=== PATIENT | male | born 1950 | race Caucasian/White ===

== ENCOUNTER 2018-07-26 08:48 | Outpatient (CLI) | payer MEDICAID, SELFPAY ==
[2018-07-26 09:42] LABS: Abs Immature Grans 0.03 k/cumm (0.0-0.09); Absolute Basophil Count 0.08 k/cumm (0.0-0.2); Absolute Eosinophil Count 0.41 k/cumm (0.0-0.7); Absolute Lymphocyte Count 2.88 k/cumm (1.2-3.4); Absolute Monocyte Count 0.65 k/cumm (0.11-0.7); Absolute Neutrophil Count 6.34 k/cumm (1.2-6.7); Basophils % 0.8; Eosinophils % 3.9; HCT 41.7 % (40.0-50.0); HGB 14.6 g/dL (13.5-17.5); Immature Grans % 0.3; Lymphocytes % 27.7; Mean Corpuscular Hemoglobin 28.4 pg (27.0-33.0); Mean Corpuscular Volume 81.1 fL (80-95); Mean Platelet Volume 9.5 fL (8.0-11.0); Monocytes % 6.3; Platelet Count 376 x1000/uL (130-400); RBC 5.14 m/cumm (4.50-6.00); White Blood Cell Count 10.39 k/cumm (4.4-10.8)
[2018-07-26 10:11] LABS: ALT 17 U/L (12-78); AST 13 U/L (15-37); Alkaline Phosphatase 71 U/L (46-116); Anion Gap 4.3 mmol/L (3-11); BUN 22 mg/dL (7-18); Bilirubin, Total 0.3 mg/dL (0.2-1.0); CO2 30.7 mmol/L (21.0-32.0); CREATININE 0.98 mg/dL (0.70-1.30); Calcium 8.7 mg/dL (8.5-10.1); Chloride 108 mmol/L (98-107); Glucose 131 mg/dL (70-100); Potassium 4.4 mmol/L (3.5-5.1); Sodium 143 mmol/L (136-145); Total Protein 6.6 g/dL (6.4-8.2)
[2018-07-27 11:38] LABS: Hepatitis B Surface Ag Negative (NEGAT)
[2018-07-27 13:04] LABS: HCV RNA Detection Quantitative Undetected IU/mL (UNDECT)
== END 2018-07-26 08:49 ==
PROVIDERS: Clinical Nurse Specialist Psychiatric/Mental Health; Internal Medicine Gastroenterology; PCP Specialist/Technologist Athletic Trainer; Visit Provider Nurse Practitioner Psychiatric/Mental Health
DX: B18.2 Chronic viral hepatitis C (principal); Z20.5 Contact with and (suspected) exposure to viral hepatitis; Z79.899 Other long term (current) drug therapy
CPT/HCPCS: 36415; 80053; 87340; 85025; 87522

== ENCOUNTER 2018-08-23 08:49 | Outpatient (CLI) | payer MEDICAID, SELFPAY ==
[2018-08-23 09:21] LABS: Abs Immature Grans 0.03 k/cumm (0.0-0.09); Absolute Basophil Count 0.05 k/cumm (0.0-0.2); Absolute Eosinophil Count 0.41 k/cumm (0.0-0.7); Absolute Lymphocyte Count 2.66 k/cumm (1.2-3.4); Absolute Monocyte Count 0.81 k/cumm (0.11-0.7); Absolute Neutrophil Count 4.96 k/cumm (1.2-6.7); Basophils % 0.6; Eosinophils % 4.6; HCT 39.6 % (40.0-50.0); HGB 13.7 g/dL (13.5-17.5); Immature Grans % 0.3; Lymphocytes % 29.8; Mean Corp. HGB Concentration 34.6 g/dL (32.0-36.0); Mean Corpuscular Hemoglobin 27.8 pg (27.0-33.0); Mean Corpuscular Volume 80.5 fL (80-95); Monocytes % 9.1; Neutrophils % 55.6; Platelet Count 359 x1000/uL (130-400); RBC 4.92 m/cumm (4.50-6.00); RBC Distribution Width 13.6 % (11.8-14.1); White Blood Cell Count 8.92 k/cumm (4.4-10.8)
[2018-08-23 10:06] LABS: ALT 18 U/L (12-78); AST 20 U/L (15-37); Albumin 4.1 g/dL (3.4-5.0); Alkaline Phosphatase 78 U/L (46-116); Anion Gap 11.3 mmol/L (3-11); BUN 12 mg/dL (7-18); Bilirubin, Total 0.3 mg/dL (0.2-1.0); CO2 26.7 mmol/L (21.0-32.0); Calcium 8.8 mg/dL (8.5-10.1); Chloride 106 mmol/L (98-107); Glucose 84 mg/dL (70-100); Potassium 4.2 mmol/L (3.5-5.1); Sodium 144 mmol/L (136-145); Total Protein 6.8 g/dL (6.4-8.2)
[2018-08-24 12:28] LABS: Hepatitis B Surface Ag Negative (NEGAT)
[2018-08-24 14:02] LABS: HCV RNA Detection Quantitative Undetected IU/mL (UNDECT)
== END 2018-08-23 09:09 ==
PROVIDERS: Internal Medicine Gastroenterology; PCP Specialist/Technologist Athletic Trainer; Visit Provider Nurse Practitioner Psychiatric/Mental Health
DX: B18.2 Chronic viral hepatitis C (principal); Z20.5 Contact with and (suspected) exposure to viral hepatitis; Z79.899 Other long term (current) drug therapy
CPT/HCPCS: 36415; 80053; 87340; 85025; 87522

== ENCOUNTER 2018-08-23 12:19 | Emergency (ER) | payer MEDICAID, SELFPAY ==
[2018-08-23 12:31] VITALS: BP 150/84; PULSE 80; RESP 16; TEMP 36.5; O2SAT 99
[2018-08-23 13:07] LABS: Bilirubin Negative (Negative); Blood Negative (Negative); Clarity Clear; Glucose Negative (Negative); Ketones Negative (Negative); Leukocyte Esterase Negative (Negative); Nitrite Negative (Negative); Urobilinogen 0.2 EU/dL (Up TO 0.2)
[2018-08-23 13:38] LABS: *AMPHETAMINES SCREEN URINE Negative (Negative); *BARBITURATES SCREEN URINE Negative (Negative); *BENZODIAZEPINES SCREEN URINE Negative (Negative); Cannabinoids THC Negative (Negative); Cocaine Screen,Urine Negative (Negative); METHADONE URINE SCREEN Negative (Negative); OPIATES URINE SCREEN Negative (Negative)
[2018-08-23 13:46] LABS: Tricyclic Antidepressants Negative (Negative)
--- NOTE | 2018-08-23 14:04 | W.ED.GENAD ---
Discharge Plan Disposition Patient Disposition: OTHER Condition: Good Discharge Details Chief Complaint: PsychEval Clinical Impression: Adult general medical exam Primary Care Provider: [facility] ED Provider: [facility] Home Meds and New Rx's Prescriptions: Continue acetaminophen 325 MG tablet 650 mg PO Q6H PRN RF: 0 trazodone 50 MG tablet 50 mg PO HS RF: 0 clozapine 100 MG tablet 125 mg PO in am RF: 0 clozapine 100 MG tablet 300 mg PO HS Qty: 3 RF: 0 ranitidine HCl 150 MG tablet 150 mg PO DAILY RF: 0 lisinopril 5 MG tablet 5 mg PO DAILY RF: 0 albuterol sulfate [ProAir HFA] 8.5 GM HFA aerosol inhaler 1 puff Inhalation Q4H PRN RF: 0 aspirin [Aspirin Low-Strength] 81 MG tablet,chewable 81 mg PO DAILY RF: 0 Discharge Instructions Additional Instructions: Please feel free to return as needed for any symptoms Referrals: [facility] [Primary Care Provider] - (as needed) Discharge Data Discharge Date/Time-TO BE ENTERED AT DEPARTURE: 08/23/18 14:25 Medical Decision Making Patient presenting to the emergency department for chief complaint of medical clearance for care bed. Patient denies any medical complaints and states that the reason he is going to the care that is because there have been arguments and disagreements at his assisted and that he is going there for respite. Patient states that he has had some slight nasal congestion sore throat but otherwise has no other symptoms and states that he is not even concerned about his cold symptoms. Physical exam is unremarkable and given the patient is otherwise asymptomatic with no complaints I feel the patient is cleared to go to the patient and his employment case manager were informed they can return for any new or worsening symptoms otherwise to continue medication as prescribed. HPI General Mode of arrival: ambulatory. Date/Time Provider Initiated Documentation: 08/23/18 12:31. Limitations to Documentation: no limitations. Information obtained by: patient. History of Present Illness Patient notes no other symptoms.. HPI Narrative: Patient reports that he is here for care bed clearance and denies any medical complaints at this time. Patient denies any pain or discomfort. States that he is being sent to the care bed due to argumentsthat have been occurring in his assisted he lives in. He states that he is mainly going there for respite. Related Data Home Medications Medication Instructions Recorded Confirmed acetaminophen 650 mg PO Q6H PRN tab-cap 09/07/17 08/23/18 albuterol sulfate [ProAir HFA] 1 puff INHALATION Q4H PRN inhaler 09/07/17 08/23/18 clozapine 125 mg PO in am 09/07/17 08/23/18 clozapine 300 mg PO HS #3 09/07/17 08/23/18 lisinopril 5 mg PO DAILY tab-cap 09/07/17 08/23/18 ranitidine HCl 150 mg PO DAILY tab-cap 09/07/17 08/23/18 trazodone 50 mg PO HS tab-cap 09/07/17 08/23/18 aspirin [Aspirin Low-Strength] 81 mg PO DAILY 09/23/17 08/23/18 Allergies Allergy/AdvReac Type Severity Reaction Status Date / Time No Known Drug Allergies Allergy Unverified 08/23/18 12:39 General Stated Complaint: PsychEval MARY: 4 Review of Systems Constitutional Denies body ache(s), Denies chills and Denies fever(s) Cardiovascular Denies chest pain and Denies dyspnea Respiratory Denies dyspnea Gastrointestinal Denies abdominal pain, Denies nausea and Denies vomiting Integumentary/Breasts Denies rash Neurologic Denies confusion and Denies sensory deficit Psychiatric Reports as per HPI, Denies confusion, Denies homicidal ideation and Denies suicidal ideation [facility] Medical History Asthma COPD (chronic obstructive pulmonary disease) GERD (gastroesophageal reflux disease) HTN (hypertension) Hepatitis C Paranoid schizophrenia Social History Smoking/Tobacco Use Status: Current every day Surgical History Colonoscopy - MAC (09/27/17) Colonoscopy - MAC (12/28/17) Exam Const General: cooperative, no acute distress and not ill appearing Orientation: alert, awake and oriented x3 HENMT Mouth: moist mucous membranes Neck Neck: normal visual inspection, full ROM, no lymphadenopathy and no meningeal signs Thyroid: thyroid normal Resp Effort & Inspection: normal respiratory effort, able to speak in complete sentences and no respiratory distress Auscultation: clear to auscultation bilaterally Cardio Rate: regular rate Rhythm: regular rhythm Heart Sounds: S1 normal and S2 normal Skin General skin exam: no rashes or lesions noted Neuro General: alert, awake, oriented x3, moves all extremities and no focal motor deficits Sensory Exam: no sensory deficits noted Course Vital Signs Temperature 36.5 C 08/23/18 12:31 Pulse 80 08/23/18 12:31 Respiratory Rate 16 08/23/18 12:31 Blood Pressure 150/84 H 08/23/18 12:31 Pulse Oximetry 99 08/23/18 12:31 Temperature 36.5 C 08/23/18 12:31 Temperature Source Temporal Artery Scan 08/23/18 12:31 Pulse 80 08/23/18 12:31 Respiratory Rate 16 08/23/18 12:31 Respiratory Effort 08/23/18 12:37 Blood Pressure 150/84 H 08/23/18 12:31 Pulse Oximetry 99 08/23/18 12:31 Oxygen Delivery Method Room Air 08/23/18 12:31 Oxygen Flow Rate 0 08/23/18 12:31 Pain Level 0 08/23/18 12:31 Lab/Test Results Lab/Test Results: Laboratory Tests Range/Units 08/23/18 08/23/18 13:00 13:00 Urine Color (Yellow) Yellow Urine Clarity Clear Urine pH (5-8) 6.0 Ur Specific [place] (1.005-1.025) 1.010 Urine Protein (Negative) mg/dL Negative Urine Ketones (Negative) mg/dL Negative Urine Blood (Negative) Negative Urine Nitrite (Negative) Negative Urine Bilirubin (Negative) Negative Urine Urobilinogen (Up TO 0.2) EU/dL 0.2 Ur Leukocyte Esterase (Negative) Negative Urine Glucose (Negative) mg/dL Negative Urine Opiates Screen (Negative) Negative Urine Methadone Screen (Negative) Negative Ur Barbiturates Screen (Negative) Negative Ur Tricyclics Screen (Negative) Negative Ur Amphetamines Screen (Negative) Negative U Benzodiazepines Scrn (Negative) Negative Urine Cocaine Screen (Negative) Negative Ur THC Screen (Negative) Negative
--- NOTE | 2018-08-23 14:07 | ED.GENADUL_ITS ---
Discharge Plan Disposition Patient Disposition: OTHER Condition: Good Discharge Details Chief Complaint: PsychEval Clinical Impression: Adult general medical exam Primary Care Provider: [facility] ED Provider: [facility] Home Meds and New Rx's Prescriptions: Continue acetaminophen 325 MG tablet 650 mg PO Q6H PRN RF: 0 trazodone 50 MG tablet 50 mg PO HS RF: 0 clozapine 100 MG tablet 125 mg PO in am RF: 0 clozapine 100 MG tablet 300 mg PO HS Qty: 3 RF: 0 ranitidine HCl 150 MG tablet 150 mg PO DAILY RF: 0 lisinopril 5 MG tablet 5 mg PO DAILY RF: 0 albuterol sulfate [ProAir HFA] 8.5 GM HFA aerosol inhaler 1 puff Inhalation Q4H PRN RF: 0 aspirin [Aspirin Low-Strength] 81 MG tablet,chewable 81 mg PO DAILY RF: 0 Discharge Instructions Additional Instructions: Please feel free to return as needed for any symptoms Referrals: [facility] [Primary Care Provider] - (as needed) Discharge Data Discharge Date/Time-TO BE ENTERED AT DEPARTURE: 08/23/18 14:25 Medical Decision Making Patient presenting to the emergency department for chief complaint of medical clearance for care bed. Patient denies any medical complaints and states that the reason he is going to the care that is because there have been arguments and disagreements at his retirement and that he is going there for respite. Patient states that he has had some slight nasal congestion sore throat but otherwise has no other symptoms and states that he is not even concerned about his cold symptoms. Physical exam is unremarkable and given the patient is otherwise asymptomatic with no complaints I feel the patient is cleared to go to the patient and his catalytic case operator were informed they can return for any new or worsening symptoms otherwise to continue medication as prescribed. HPI General Mode of arrival: ambulatory . Date/Time Provider Initiated Documentation: 08/23/18 12:31 . Limitations to Documentation: no limitations . Information obtained by: patient . History of Present Illness Patient notes no other symptoms.. HPI Narrative: Patient reports that he is here for care bed clearance and denies any medical complaints at this time. Patient denies any pain or discomfort. States that he is being sent to the care bed due to argumentsthat have been occurring in his retirement he lives in. He states that he is mainly going there for respite. Related Data Home Medications Medication Instructions Recorded Confirmed acetaminophen 650 mg PO Q6H PRN tab-cap 09/07/17 08/23/18 albuterol sulfate [ProAir HFA] 1 puff INHALATION Q4H PRN inhaler 09/07/1708/23 clozapine 125 mg PO in am 09/07/17 08/23/18 clozapine 300 mg PO HS #3 09/07/17 08/23/18 lisinopril 5 mg PO DAILY tab-cap 09/07/17 08/23/18 ranitidine HCl 150 mg PO DAILY tab-cap 09/07/17 08/23/18 trazodone 50 mg PO HS tab-cap 09/07/17 08/23/18 aspirin [Aspirin Low-Strength] 81 mg PO DAILY 09/23/17 08/23/18 Allergies Allergy/AdvReac Type Severity Reaction Status Date / Time No Known Drug Allergies Allergy Unverified 08/23/18 12:39 General Stated Complaint: PsychEval MARY: 4 Review of Systems Constitutional Denies body ache(s), Denies chills and Denies fever(s) Cardiovascular Denies chest pain and Denies dyspnea Respiratory Denies dyspnea Gastrointestinal Denies abdominal pain, Denies nausea and Denies vomiting Integumentary/Breasts Denies rash Neurologic Denies confusion and Denies sensory deficit Psychiatric Reports as per HPI, Denies confusion, Denies homicidal ideation and Denies suicidal ideation [facility] Medical History Asthma COPD (chronic obstructive pulmonary disease) GERD (gastroesophageal reflux disease) HTN (hypertension) Hepatitis C Paranoid schizophrenia Social History Smoking/Tobacco Use Status: Current every day Surgical History Colonoscopy - MAC (09/27/17) Colonoscopy - MAC (12/28/17) Exam Const General: cooperative, no acute distress and not ill appearing Orientation: alert, awake and oriented x3 HENMT Mouth: moist mucous membranes Neck Neck: normal visual inspection, full ROM, no lymphadenopathy and no meningeal signs Thyroid: thyroid normal Resp Effort & Inspection: normal respiratory effort, able to speak in complete sentences and no respiratory distress Auscultation: clear to auscultation bilaterally Cardio Rate: regular rate Rhythm: regular rhythm Heart Sounds: S1 normal and S2 normal Skin General skin exam: no rashes or lesions noted Neuro General: alert, awake, oriented x3, moves all extremities and no focal motor deficits Sensory Exam: no sensory deficits noted Course Vital Signs Temperature 36.5 C 08/23/18 12:31 Pulse 80 08/23/18 12:31 Respiratory Rate 16 08/23/18 12:31 Blood Pressure 150/84 H 08/23/18 12:31 Pulse Oximetry 99 08/23/18 12:31 Temperature 36.5 C 08/23/18 12:31 Temperature Source Temporal Artery Scan 08/23/18 12:31 Pulse 80 08/23/18 12:31 Respiratory Rate 16 08/23/18 12:31 Respiratory Effort 08/23/18 12:37 Blood Pressure 150/84 H 08/23/18 12:31 Pulse Oximetry 99 08/23/18 12:31 Oxygen Delivery Method Room Air 08/23/18 12:31 Oxygen Flow Rate 0 08/23/18 12:31 Pain Level 0 08/23/18 12:31 Lab/Test Results Lab/Test Results: Laboratory Tests Range/Units 08/23/18 08/23/18 13:00 13:00 Urine Color (Yellow) Yellow Urine Clarity Clear Urine pH (5-8) 6.0 Ur Specific [place] (1.005-1.025) 1.010 Urine Protein (Negative) mg/dL Negative Urine Ketones (Negative) mg/dL Negative Urine Blood (Negative) Negative Urine Nitrite (Negative) Negative Urine Bilirubin (Negative) Negative Urine Urobilinogen (Up TO 0.2) EU/dL 0.2 Ur Leukocyte Esterase (Negative) Negative Urine Glucose (Negative) mg/dL Negative Urine Opiates Screen (Negative) Negative Urine Methadone Screen (Negative) Negative Ur Barbiturates Screen (Negative) Negative Ur Tricyclics Screen (Negative) Negative Ur Amphetamines Screen (Negative) Negative U Benzodiazepines Scrn (Negative) Negative Urine Cocaine Screen (Negative) Negative Ur THC Screen (Negative) Negative
== END 2018-08-23 14:25 | disposition other institution (70) ==
PROVIDERS: Emergency Provider Nurse Practitioner Family; PCP Specialist/Technologist Athletic Trainer
DX: F20.0 Paranoid schizophrenia (principal); Z71.1 Person with feared health complaint in whom no diagnosis is made; I10 Essential (primary) hypertension; J44.9 Chronic obstructive pulmonary disease, unspecified; F17.210 Nicotine dependence, cigarettes, uncomplicated
CPT/HCPCS: 80307; 99282; 81003

== ENCOUNTER 2018-09-20 08:45 | Outpatient (CLI) | payer MEDICAID, SELFPAY ==
[2018-09-20 09:30] LABS: Abs Immature Grans 0.06 k/cumm (0.0-0.09); Absolute Lymphocyte Count 1.92 k/cumm (1.2-3.4); Basophils % 0.2; Eosinophils % 0.8; HCT 41.1 % (40.0-50.0); HGB 14.2 g/dL (13.5-17.5); Immature Grans % 0.3; Lymphocytes % 8.7; Mean Corp. HGB Concentration 34.5 g/dL (32.0-36.0); Mean Corpuscular Hemoglobin 27.6 pg (27.0-33.0); Mean Platelet Volume 9.1 fL (8.0-11.0); Monocytes % 6.6; Neutrophils % 83.4; Platelet Count 443 x1000/uL (130-400); RBC 5.14 m/cumm (4.50-6.00); RBC Distribution Width 13.8 % (11.8-14.1); White Blood Cell Count 22.09 k/cumm (4.4-10.8)
[2018-09-20 09:34] LABS: Absolute Basophil Count 0.04 k/cumm (0.0-0.2); Absolute Eosinophil Count 0.18 k/cumm (0.0-0.7); Absolute Monocyte Count 1.46 k/cumm (0.11-0.7); Absolute Neutrophil Count 18.42 k/cumm (1.2-6.7)
[2018-09-20 10:30] LABS: ALT 15 U/L (12-78); AST 16 U/L (15-37); Albumin 3.9 g/dL (3.4-5.0); Alkaline Phosphatase 79 U/L (46-116); Anion Gap 7.8 mmol/L (3-11); BUN 23 mg/dL (7-18); Bilirubin, Total 0.3 mg/dL (0.2-1.0); CO2 29.2 mmol/L (21.0-32.0); CREATININE 0.96 mg/dL (0.70-1.30); Calcium 9.1 mg/dL (8.5-10.1); Chloride 103 mmol/L (98-107); Glucose 128 mg/dL (70-100); Potassium 4.6 mmol/L (3.5-5.1); Sodium 140 mmol/L (136-145)
[2018-09-21 12:37] LABS: Hepatitis B Surface Ag Negative (NEGAT)
[2018-09-21 14:53] LABS: HCV RNA Detection Quantitative Undetected IU/mL (UNDECT)
== END 2018-09-20 09:05 ==
PROVIDERS: Physician Assistant Medical; PCP Specialist/Technologist Athletic Trainer; Visit Provider Nurse Practitioner Psychiatric/Mental Health
DX: F20.0 Paranoid schizophrenia (principal); Z79.899 Other long term (current) drug therapy; B18.2 Chronic viral hepatitis C; Z20.5 Contact with and (suspected) exposure to viral hepatitis
CPT/HCPCS: 36415; 80053; 87340; 85025; 87522

== ENCOUNTER 2018-10-05 09:03 | Outpatient (CLI) | payer MEDICAID, SELFPAY ==
[2018-10-05 09:37] LABS: Abs Immature Grans 0.04 k/cumm (0.0-0.09); Absolute Basophil Count 0.06 k/cumm (0.0-0.2); Absolute Lymphocyte Count 2.94 k/cumm (1.2-3.4); Absolute Monocyte Count 1.08 k/cumm (0.11-0.7); Absolute Neutrophil Count 5.83 k/cumm (1.2-6.7); Basophils % 0.6; Eosinophils % 3.9; HCT 37.3 % (40.0-50.0); HGB 12.9 g/dL (13.5-17.5); Immature Grans % 0.4; Lymphocytes % 28.4; Mean Corp. HGB Concentration 34.6 g/dL (32.0-36.0); Mean Corpuscular Hemoglobin 27.5 pg (27.0-33.0); Mean Corpuscular Volume 79.5 fL (80-95); Mean Platelet Volume 8.7 fL (8.0-11.0); Monocytes % 10.4; Neutrophils % 56.3; Platelet Count 409 x1000/uL (130-400); RBC 4.69 m/cumm (4.50-6.00); RBC Distribution Width 13.8 % (11.8-14.1); White Blood Cell Count 10.35 k/cumm (4.4-10.8)
== END 2018-10-05 09:23 ==
PROVIDERS: PCP Specialist/Technologist Athletic Trainer; Visit Provider Nurse Practitioner Psychiatric/Mental Health
DX: Z79.899 Other long term (current) drug therapy (principal)
CPT/HCPCS: 36415; 85025

== ENCOUNTER 2018-11-02 08:49 | Outpatient (CLI) | payer MEDICAID, SELFPAY ==
[2018-11-02 09:33] LABS: Abs Immature Grans 0.03 k/cumm (0.0-0.09); Absolute Basophil Count 0.07 k/cumm (0.0-0.2); Absolute Eosinophil Count 0.43 k/cumm (0.0-0.7); Absolute Lymphocyte Count 2.87 k/cumm (1.2-3.4); Absolute Monocyte Count 0.64 k/cumm (0.11-0.7); Absolute Neutrophil Count 7.47 k/cumm (1.2-6.7); Basophils % 0.6; Eosinophils % 3.7; HCT 41.6 % (40.0-50.0); HGB 14.2 g/dL (13.5-17.5); Immature Grans % 0.3; Lymphocytes % 24.9; Mean Corp. HGB Concentration 34.1 g/dL (32.0-36.0); Mean Corpuscular Hemoglobin 27.4 pg (27.0-33.0); Mean Corpuscular Volume 80.2 fL (80-95); Mean Platelet Volume 9.6 fL (8.0-11.0); Monocytes % 5.6; Neutrophils % 64.9; Platelet Count 385 x1000/uL (130-400); RBC 5.19 m/cumm (4.50-6.00); RBC Distribution Width 14.2 % (11.8-14.1); White Blood Cell Count 11.51 k/cumm (4.4-10.8)
== END 2018-11-02 09:09 ==
PROVIDERS: PCP Specialist/Technologist Athletic Trainer; Visit Provider Nurse Practitioner Psychiatric/Mental Health
DX: Z79.899 Other long term (current) drug therapy (principal); F20.0 Paranoid schizophrenia
CPT/HCPCS: 36415; 85025

== ENCOUNTER 2018-11-30 09:20 | Outpatient (CLI) | payer MEDICAID, SELFPAY ==
[2018-11-30 10:14] LABS: Abs Immature Grans 0.04 k/cumm (0.0-0.09); Absolute Basophil Count 0.05 k/cumm (0.0-0.2); Absolute Eosinophil Count 0.29 k/cumm (0.0-0.7); Absolute Lymphocyte Count 2.71 k/cumm (1.2-3.4); Absolute Neutrophil Count 8.37 k/cumm (1.2-6.7); Basophils % 0.4; Eosinophils % 2.3; HCT 37.9 % (40.0-50.0); HGB 13.1 g/dL (13.5-17.5); Immature Grans % 0.3; Lymphocytes % 21.8; Mean Corp. HGB Concentration 34.6 g/dL (32.0-36.0); Mean Corpuscular Hemoglobin 27.6 pg (27.0-33.0); Mean Corpuscular Volume 79.8 fL (80-95); Mean Platelet Volume 8.7 fL (8.0-11.0); Neutrophils % 67.2; Platelet Count 509 x1000/uL (130-400); RBC 4.75 m/cumm (4.50-6.00); RBC Distribution Width 14.1 % (11.8-14.1); White Blood Cell Count 12.45 k/cumm (4.4-10.8)
[2018-11-30 11:49] LABS: ALT 17 U/L (12-78); AST 15 U/L (15-37); Alkaline Phosphatase 77 U/L (46-116); Anion Gap 9.2 mmol/L (3-11); BUN 21 mg/dL (7-18); Bilirubin, Total 0.3 mg/dL (0.2-1.0); CO2 27.8 mmol/L (21.0-32.0); CREATININE 0.96 mg/dL (0.70-1.30); Calcium 9.4 mg/dL (8.5-10.1); Chloride 105 mmol/L (98-107); Glucose 114 mg/dL (70-100); Potassium 4.5 mmol/L (3.5-5.1); Sodium 142 mmol/L (136-145)
[2018-12-01 12:35] LABS: Hepatitis B Surface Ag Negative (NEGAT)
[2018-12-01 13:43] LABS: HCV RNA Detection Quantitative Undetected IU/mL (UNDECT)
== END 2018-11-30 09:40 ==
PROVIDERS: Physician Assistant Medical; PCP Specialist/Technologist Athletic Trainer; Visit Provider Nurse Practitioner Psychiatric/Mental Health
DX: B18.2 Chronic viral hepatitis C (principal); Z20.5 Contact with and (suspected) exposure to viral hepatitis; F20.9 Schizophrenia, unspecified; Z79.899 Other long term (current) drug therapy
CPT/HCPCS: 36415; 80053; 87340; 85025; 87522

== ENCOUNTER 2019-01-04 10:01 | Outpatient (CLI) | payer MEDICAID, SELFPAY ==
[2019-01-04 10:28] LABS: Abs Immature Grans 0.04 k/cumm (0.0-0.09); Absolute Basophil Count 0.04 k/cumm (0.0-0.2); Absolute Eosinophil Count 0.28 k/cumm (0.0-0.7); Absolute Lymphocyte Count 2.66 k/cumm (1.2-3.4); Absolute Monocyte Count 0.92 k/cumm (0.11-0.7); Absolute Neutrophil Count 9.27 k/cumm (1.2-6.7); Basophils % 0.3; Eosinophils % 2.1; HCT 38.5 % (40.0-50.0); HGB 13.1 g/dL (13.5-17.5); Immature Grans % 0.3; Lymphocytes % 20.1; Mean Corpuscular Hemoglobin 26.8 pg (27.0-33.0); Mean Corpuscular Volume 78.7 fL (80-95); Neutrophils % 70.2; Platelet Count 436 x1000/uL (130-400); RBC 4.89 m/cumm (4.50-6.00); RBC Distribution Width 14.1 % (11.8-14.1); White Blood Cell Count 13.21 k/cumm (4.4-10.8)
== END 2019-01-04 10:21 ==
PROVIDERS: PCP Specialist/Technologist Athletic Trainer; Visit Provider Nurse Practitioner Psychiatric/Mental Health
DX: F20.9 Schizophrenia, unspecified (principal); Z79.899 Other long term (current) drug therapy
CPT/HCPCS: 36415; 85025

== ENCOUNTER 2019-02-01 09:48 | Outpatient (CLI) | payer MEDICAID, SELFPAY ==
[2019-02-01 10:25] LABS: Abs Immature Grans 0.02 k/cumm (0.0-0.09); Absolute Basophil Count 0.06 k/cumm (0.0-0.2); Absolute Eosinophil Count 0.47 k/cumm (0.0-0.7); Absolute Lymphocyte Count 2.52 k/cumm (1.2-3.4); Absolute Monocyte Count 0.81 k/cumm (0.11-0.7); Absolute Neutrophil Count 6.78 k/cumm (1.2-6.7); Basophils % 0.6; Eosinophils % 4.4; HCT 37.1 % (40.0-50.0); Immature Grans % 0.2; Lymphocytes % 23.6; Mean Corpuscular Hemoglobin 27.5 pg (27.0-33.0); Mean Corpuscular Volume 78.6 fL (80-95); Mean Platelet Volume 9.2 fL (8.0-11.0); Monocytes % 7.6; Neutrophils % 63.6; Platelet Count 363 x1000/uL (130-400); RBC 4.72 m/cumm (4.50-6.00); White Blood Cell Count 10.66 k/cumm (4.4-10.8)
[2019-02-01 11:15] LABS: ALT 14 U/L (12-78); AST 14 U/L (15-37); Albumin 3.9 g/dL (3.4-5.0); Alkaline Phosphatase 81 U/L (46-116); Anion Gap 8.3 mmol/L (3-11); BUN 22 mg/dL (7-18); Bilirubin, Total 0.3 mg/dL (0.2-1.0); CO2 32.7 mmol/L (21.0-32.0); CREATININE 0.94 mg/dL (0.70-1.30); Chloride 104 mmol/L (98-107); Glucose 108 mg/dL (70-100); Potassium 4.2 mmol/L (3.5-5.1); Sodium 145 mmol/L (136-145); Total Protein 6.5 g/dL (6.4-8.2)
[2019-02-02 12:40] LABS: Hepatitis B Surface Ag Negative (NEGAT)
[2019-02-02 14:48] LABS: HCV RNA Detection Quantitative Undetected IU/mL (UNDECT)
[2019-02-03 09:10] LABS: Clozapine 557 ng/mL (>350); Clozapine+Norclozapine Total 1058 ng/mL (>450); Norclozapine 501 ng/mL
== END 2019-02-01 10:08 ==
PROVIDERS: PCP Specialist/Technologist Athletic Trainer; Visit Provider Nurse Practitioner Psychiatric/Mental Health
DX: F20.9 Schizophrenia, unspecified (principal); Z51.81 Encounter for therapeutic drug level monitoring; Z79.899 Other long term (current) drug therapy; B18.2 Chronic viral hepatitis C
CPT/HCPCS: 36415; 80053; 87340; 80159; 85025; 87522

== ENCOUNTER 2019-03-01 08:53 | Outpatient (CLI) | payer MEDICAID, SELFPAY ==
[2019-03-01 09:24] LABS: Abs Immature Grans 0.03 k/cumm (0.0-0.09); Absolute Basophil Count 0.04 k/cumm (0.0-0.2); Absolute Eosinophil Count 0.27 k/cumm (0.0-0.7); Absolute Lymphocyte Count 3.79 k/cumm (1.2-3.4); Absolute Monocyte Count 0.77 k/cumm (0.11-0.7); Absolute Neutrophil Count 7.58 k/cumm (1.2-6.7); Basophils % 0.3; Eosinophils % 2.2; HCT 41.8 % (40.0-50.0); HGB 14.5 g/dL (13.5-17.5); Immature Grans % 0.2; Lymphocytes % 30.4; Mean Corp. HGB Concentration 34.7 g/dL (32.0-36.0); Mean Corpuscular Hemoglobin 27.4 pg (27.0-33.0); Mean Platelet Volume 8.8 fL (8.0-11.0); Monocytes % 6.2; Neutrophils % 60.7; Platelet Count 449 x1000/uL (130-400); RBC 5.29 m/cumm (4.50-6.00); RBC Distribution Width 14.2 % (11.8-14.1); White Blood Cell Count 12.48 k/cumm (4.4-10.8)
[2019-03-01 10:23] LABS: ALT 16 U/L (12-78); AST 13 U/L (15-37); Albumin 3.9 g/dL (3.4-5.0); Alkaline Phosphatase 80 U/L (46-116); Anion Gap 9.1 mmol/L (3-11); BUN 23 mg/dL (7-18); Bilirubin, Total 0.3 mg/dL (0.2-1.0); CO2 30.9 mmol/L (21.0-32.0); CREATININE 1.02 mg/dL (0.70-1.30); Calcium 9.3 mg/dL (8.5-10.1); Chloride 104 mmol/L (98-107); Glucose 136 mg/dL (70-100); Potassium 4.3 mmol/L (3.5-5.1); Sodium 144 mmol/L (136-145); Total Protein 6.8 g/dL (6.4-8.2)
[2019-03-02 10:46] LABS: Hepatitis B Surface Ag Negative (NEGAT)
[2019-03-02 16:29] LABS: HCV RNA Detection Quantitative Undetected IU/mL (UNDECT)
[2019-03-04 00:18] LABS: Clozapine 290 ng/mL (>350); Clozapine+Norclozapine Total 575 ng/mL (>450); Norclozapine 285 ng/mL
== END 2019-03-01 09:13 ==
PROVIDERS: PCP Specialist/Technologist Athletic Trainer; Visit Provider Nurse Practitioner Psychiatric/Mental Health
DX: Z79.899 Other long term (current) drug therapy (principal); B18.2 Chronic viral hepatitis C; F20.9 Schizophrenia, unspecified; Z51.81 Encounter for therapeutic drug level monitoring
CPT/HCPCS: 36415; 80053; 87340; 80159; 85025; 87522

== ENCOUNTER 2019-03-29 08:58 | Outpatient (CLI) | payer MEDICAID, SELFPAY ==
[2019-03-29 09:28] LABS: Abs Immature Grans 0.04 k/cumm (0.0-0.09); Absolute Eosinophil Count 0.28 k/cumm (0.0-0.7); Absolute Monocyte Count 0.66 k/cumm (0.11-0.7); Absolute Neutrophil Count 10.35 k/cumm (1.2-6.7); Basophils % 0.4; Eosinophils % 2.1; HCT 37.7 % (40.0-50.0); HGB 13.3 g/dL (13.5-17.5); Immature Grans % 0.3; Lymphocytes % 15.9; Mean Corp. HGB Concentration 35.3 g/dL (32.0-36.0); Mean Corpuscular Hemoglobin 27.7 pg (27.0-33.0); Mean Corpuscular Volume 78.4 fL (80-95); Mean Platelet Volume 8.9 fL (8.0-11.0); Monocytes % 4.9; Neutrophils % 76.4; Platelet Count 475 x1000/uL (130-400); RBC 4.81 m/cumm (4.50-6.00); RBC Distribution Width 13.8 % (11.8-14.1); White Blood Cell Count 13.55 k/cumm (4.4-10.8)
[2019-03-29 09:30] LABS: Absolute Basophil Count 0.05 k/cumm (0.0-0.2); Absolute Lymphocyte Count 2.15 k/cumm (1.2-3.4)
== END 2019-03-29 09:18 ==
PROVIDERS: PCP Specialist/Technologist Athletic Trainer; Visit Provider Nurse Practitioner Psychiatric/Mental Health
DX: Z79.899 Other long term (current) drug therapy (principal); F20.9 Schizophrenia, unspecified
CPT/HCPCS: 36415; 85025

== ENCOUNTER 2019-04-26 08:48 | Outpatient (CLI) | payer MEDICAID, SELFPAY ==
[2019-04-26 09:26] LABS: Abs Immature Grans 0.02 k/cumm (0.0-0.09); Absolute Basophil Count 0.04 k/cumm (0.0-0.2); Absolute Eosinophil Count 0.27 k/cumm (0.0-0.7); Absolute Lymphocyte Count 2.28 k/cumm (1.2-3.4); Absolute Monocyte Count 0.38 k/cumm (0.11-0.7); Absolute Neutrophil Count 5.76 k/cumm (1.2-6.7); Basophils % 0.5; Eosinophils % 3.1; HCT 40.6 % (40.0-50.0); HGB 13.9 g/dL (13.5-17.5); Immature Grans % 0.2; Lymphocytes % 26.1; Mean Corp. HGB Concentration 34.2 g/dL (32.0-36.0); Mean Corpuscular Hemoglobin 27.1 pg (27.0-33.0); Mean Corpuscular Volume 79.3 fL (80-95); Mean Platelet Volume 9.5 fL (8.0-11.0); Monocytes % 4.3; Neutrophils % 65.8; Platelet Count 387 x1000/uL (130-400); RBC 5.12 m/cumm (4.50-6.00); RBC Distribution Width 14.7 % (11.8-14.1); White Blood Cell Count 8.75 k/cumm (4.4-10.8)
== END 2019-04-26 09:08 ==
PROVIDERS: PCP Specialist/Technologist Athletic Trainer; Visit Provider Nurse Practitioner Psychiatric/Mental Health
DX: F20.9 Schizophrenia, unspecified (principal); Z79.899 Other long term (current) drug therapy
CPT/HCPCS: 36415; 85025

== ENCOUNTER 2019-05-24 08:45 | Outpatient (CLI) | payer MEDICAID, SELFPAY ==
[2019-05-24 10:20] LABS: Abs Immature Grans 0.03 k/cumm (0.0-0.09); Absolute Lymphocyte Count 2.24 k/cumm (1.2-3.4); Absolute Monocyte Count 0.75 k/cumm (0.11-0.7); Absolute Neutrophil Count 7.49 k/cumm (1.2-6.7); Basophils % 0.6; Eosinophils % 2.8; HCT 38.4 % (40.0-50.0); HGB 13.2 g/dL (13.5-17.5); Immature Grans % 0.3; Lymphocytes % 20.6; Mean Corp. HGB Concentration 34.4 g/dL (32.0-36.0); Mean Corpuscular Volume 78.7 fL (80-95); Mean Platelet Volume 9.1 fL (8.0-11.0); Monocytes % 6.9; Neutrophils % 68.8; Platelet Count 447 x1000/uL (130-400); RBC 4.88 m/cumm (4.50-6.00); RBC Distribution Width 14.3 % (11.8-14.1); White Blood Cell Count 10.88 k/cumm (4.4-10.8)
[2019-05-24 10:26] LABS: Absolute Basophil Count 0.07 k/cumm (0.0-0.2)
== END 2019-05-24 09:05 ==
PROVIDERS: PCP Specialist/Technologist Athletic Trainer; Visit Provider Nurse Practitioner Family
DX: Z79.899 Other long term (current) drug therapy (principal)
CPT/HCPCS: 36415; 85025

== ENCOUNTER 2019-06-21 09:26 | Outpatient (CLI) | payer MEDICAID, SELFPAY ==
[2019-06-21 10:13] LABS: Abs Immature Grans 0.02 k/cumm (0.0-0.09); Absolute Basophil Count 0.03 k/cumm (0.0-0.2); Absolute Eosinophil Count 0.23 k/cumm (0.0-0.7); Absolute Lymphocyte Count 2.93 k/cumm (1.2-3.4); Absolute Monocyte Count 0.67 k/cumm (0.11-0.7); Absolute Neutrophil Count 7.42 k/cumm (1.2-6.7); Basophils % 0.3; HGB 14.3 g/dL (13.5-17.5); Immature Grans % 0.2; Lymphocytes % 25.9; Mean Corp. HGB Concentration 34.9 g/dL (32.0-36.0); Mean Corpuscular Hemoglobin 27.4 pg (27.0-33.0); Mean Corpuscular Volume 78.7 fL (80-95); Monocytes % 5.9; Neutrophils % 65.7; Platelet Count 359 x1000/uL (130-400); RBC 5.21 m/cumm (4.50-6.00); RBC Distribution Width 14.6 % (11.8-14.1)
== END 2019-06-21 09:46 ==
PROVIDERS: PCP Specialist/Technologist Athletic Trainer; Visit Provider Nurse Practitioner Family
DX: F20.0 Paranoid schizophrenia (principal); Z79.899 Other long term (current) drug therapy
CPT/HCPCS: 36415; 85025

== ENCOUNTER 2019-07-19 08:58 | Outpatient (CLI) | payer MEDICAID, SELFPAY ==
[2019-07-19 09:17] LABS: Abs Immature Grans 0.05 k/cumm (0.0-0.09); Absolute Basophil Count 0.04 k/cumm (0.0-0.2); Absolute Eosinophil Count 0.26 k/cumm (0.0-0.7); Absolute Lymphocyte Count 2.85 k/cumm (1.2-3.4); Absolute Monocyte Count 0.67 k/cumm (0.11-0.7); Basophils % 0.4; Eosinophils % 2.6; HCT 37.7 % (40.0-50.0); HGB 12.9 g/dL (13.5-17.5); Immature Grans % 0.5; Lymphocytes % 28.9; Mean Corp. HGB Concentration 34.2 g/dL (32.0-36.0); Mean Platelet Volume 8.4 fL (8.0-11.0); Monocytes % 6.8; Neutrophils % 60.8; Platelet Count 495 x1000/uL (130-400); RBC 4.77 m/cumm (4.50-6.00); RBC Distribution Width 14.3 % (11.8-14.1); White Blood Cell Count 9.87 k/cumm (4.4-10.8)
== END 2019-07-19 09:18 ==
PROVIDERS: PCP Specialist/Technologist Athletic Trainer; Visit Provider Nurse Practitioner Family
DX: F20.0 Paranoid schizophrenia (principal); Z79.899 Other long term (current) drug therapy
CPT/HCPCS: 36415; 85025

== ENCOUNTER 2019-08-17 10:28 | Outpatient (CLI) | payer MEDICAID, SELFPAY ==
[2019-08-17 10:56] LABS: Abs Immature Grans 0.02 k/cumm (0.0-0.09); Absolute Basophil Count 0.07 k/cumm (0.0-0.2); Absolute Eosinophil Count 0.53 k/cumm (0.0-0.7); Absolute Lymphocyte Count 3.04 k/cumm (1.2-3.4); Absolute Monocyte Count 0.92 k/cumm (0.11-0.7); Absolute Neutrophil Count 6.92 k/cumm (1.2-6.7); Basophils % 0.6; Eosinophils % 4.6; HCT 39.2 % (40.0-50.0); HGB 13.6 g/dL (13.5-17.5); Immature Grans % 0.2; Lymphocytes % 26.4; Mean Corp. HGB Concentration 34.7 g/dL (32.0-36.0); Mean Corpuscular Hemoglobin 27.3 pg (27.0-33.0); Mean Corpuscular Volume 78.6 fL (80-95); Mean Platelet Volume 9.1 fL (8.0-11.0); Neutrophils % 60.2; Platelet Count 372 x1000/uL (130-400); RBC 4.99 m/cumm (4.50-6.00); RBC Distribution Width 14.4 % (11.8-14.1)
== END 2019-08-17 10:48 ==
PROVIDERS: Nurse Practitioner Family; PCP Specialist/Technologist Athletic Trainer; Visit Provider Nurse Practitioner Psychiatric/Mental Health
DX: F20.0 Paranoid schizophrenia (principal); Z79.899 Other long term (current) drug therapy
CPT/HCPCS: 36415; 85025

== ENCOUNTER 2019-09-13 08:55 | Outpatient (CLI) | payer MEDICAID, SELFPAY ==
[2019-09-13 09:56] LABS: Abs Immature Grans 0.06 k/cumm (0.0-0.09); Absolute Basophil Count 0.05 k/cumm (0.0-0.2); Absolute Eosinophil Count 0.46 k/cumm (0.0-0.7); Absolute Lymphocyte Count 2.64 k/cumm (1.2-3.4); Absolute Monocyte Count 0.62 k/cumm (0.11-0.7); Absolute Neutrophil Count 6.64 k/cumm (1.2-6.7); Basophils % 0.5; Eosinophils % 4.4; HCT 39.8 % (40.0-50.0); HGB 13.7 g/dL (13.5-17.5); Immature Grans % 0.6; Lymphocytes % 25.2; Mean Corp. HGB Concentration 34.4 g/dL (32.0-36.0); Mean Corpuscular Hemoglobin 27.4 pg (27.0-33.0); Mean Corpuscular Volume 79.6 fL (80-95); Monocytes % 5.9; Neutrophils % 63.4; Platelet Count 482 x1000/uL (130-400); RBC Distribution Width 14.4 % (11.8-14.1); White Blood Cell Count 10.47 k/cumm (4.4-10.8)
[2019-09-13 10:15] LABS: Hemoglobin A1C 5.9 % (4.5-6.2)
[2019-09-13 10:46] LABS: Anion Gap 8.8 mmol/L (3-11); BUN 21 mg/dL (7-18); CO2 30.2 mmol/L (21.0-32.0); CREATININE 1.01 mg/dL (0.70-1.30); Chloride 107 mmol/L (98-107); Glucose 128 mg/dL (70-100); Potassium 4.3 mmol/L (3.5-5.1); Sodium 146 mmol/L (136-145)
[2019-09-13 11:08] LABS: HDL Cholesterol 27 mg/dL (40-60); LDL CHOLESTEROL 117 mg/dL (<100)
== END 2019-09-13 09:15 ==
PROVIDERS: Nurse Practitioner Family; PCP Specialist/Technologist Athletic Trainer; Visit Provider Nurse Practitioner Family
DX: I10 Essential (primary) hypertension (principal); K21.9 Gastro-esophageal reflux disease without esophagitis; F17.200 Nicotine dependence, unspecified, uncomplicated; J44.9 Chronic obstructive pulmonary disease, unspecified; Z00.00 Encounter for general adult medical examination without abnormal findings; Z79.899 Other long term (current) drug therapy
CPT/HCPCS: 36415; 80048; 83721; 83036; 83718; 85025

== ENCOUNTER 2019-09-25 01:52 | Outpatient (CLI) | payer MEDICAID, SELFPAY ==
--- NOTE | 2019-09-25 07:47 | DI.US_ITS ---
EXAM: US AAA SCREENING CLINICAL HISTORY: [facility], Z00.00, SMOKER 50 PK YR HX TECHNIQUE: Ultrasound performed using standard protocol. COMPARISON: No exams were available for comparison FINDINGS: There is no evidence of an abdominal aortic aneurysm. Maximum diameter of the abdominal aorta is see n proximally and measures 2.2 cm. The right iliac artery measures 1.0 cm. The left iliac artery joya sures 1.1 cm. IMPRESSION: No evidence of an abdominal aortic aneurysm sonographically.
== END 2019-09-25 02:12 ==
PROVIDERS: PCP Specialist/Technologist Athletic Trainer; Visit Provider Nurse Practitioner Family
DX: F17.200 Nicotine dependence, unspecified, uncomplicated (principal); Z13.6 Encounter for screening for cardiovascular disorders
CPT/HCPCS: 76706

== ENCOUNTER 2019-10-10 09:52 | Outpatient (CLI) | payer MEDICAID, SELFPAY ==
[2019-10-10 10:33] LABS: Abs Immature Grans 0.04 k/cumm (0.0-0.09); Absolute Basophil Count 0.05 k/cumm (0.0-0.2); Absolute Eosinophil Count 0.14 k/cumm (0.0-0.7); Absolute Lymphocyte Count 2.55 k/cumm (1.2-3.4); Absolute Monocyte Count 0.97 k/cumm (0.11-0.7); Basophils % 0.4; Eosinophils % 1.1; HCT 38.1 % (40.0-50.0); HGB 13.1 g/dL (13.5-17.5); Immature Grans % 0.3; Lymphocytes % 20.5; Mean Corp. HGB Concentration 34.4 g/dL (32.0-36.0); Mean Corpuscular Hemoglobin 27.5 pg (27.0-33.0); Mean Corpuscular Volume 79.9 fL (80-95); Monocytes % 7.8; Neutrophils % 69.9; Platelet Count 414 x1000/uL (130-400); RBC 4.77 m/cumm (4.50-6.00); RBC Distribution Width 14.1 % (11.8-14.1); White Blood Cell Count 12.43 k/cumm (4.4-10.8)
[2019-10-10 10:34] LABS: Absolute Neutrophil Count 8.69 k/cumm (1.2-6.7)
== END 2019-10-10 10:12 ==
LOC: NCHCO 10:20 → LBO 11:37
PROVIDERS: PCP Specialist/Technologist Athletic Trainer; Visit Provider Nurse Practitioner Family
DX: Z79.899 Other long term (current) drug therapy (principal)
CPT/HCPCS: 36415; 85025

== ENCOUNTER 2019-11-09 08:33 | Outpatient (CLI) | payer MEDICAID, SELFPAY ==
[2019-11-09 09:03] LABS: Abs Immature Grans 0.03 k/cumm (0.0-0.09); Absolute Basophil Count 0.06 k/cumm (0.0-0.2); Absolute Eosinophil Count 0.43 k/cumm (0.0-0.7); Absolute Monocyte Count 1.16 k/cumm (0.11-0.7); Absolute Neutrophil Count 5.39 k/cumm (1.2-6.7); Basophils % 0.6; Eosinophils % 4.5; HCT 37.2 % (40.0-50.0); HGB 12.9 g/dL (13.5-17.5); Immature Grans % 0.3; Lymphocytes % 26.1; Mean Corp. HGB Concentration 34.7 g/dL (32.0-36.0); Mean Corpuscular Hemoglobin 27.6 pg (27.0-33.0); Mean Corpuscular Volume 79.5 fL (80-95); Mean Platelet Volume 8.8 fL (8.0-11.0); Monocytes % 12.1; Neutrophils % 56.4; Platelet Count 422 x1000/uL (130-400); RBC 4.68 m/cumm (4.50-6.00); RBC Distribution Width 13.8 % (11.8-14.1); White Blood Cell Count 9.57 k/cumm (4.4-10.8)
== END 2019-11-09 08:53 ==
PROVIDERS: PCP Specialist/Technologist Athletic Trainer; Visit Provider Nurse Practitioner Family
DX: F20.0 Paranoid schizophrenia (principal); Z79.899 Other long term (current) drug therapy
CPT/HCPCS: 36415; 85025

== ENCOUNTER 2019-11-14 02:22 | Outpatient (CLI) | payer MEDICAID, SELFPAY ==
--- NOTE | 2019-11-14 08:43 | DI.CTLCSR_ITS ---
EXAM: CT CHEST LUNG CANCER SCREEN CLINICAL HISTORY: SCREENING FOR CANCER, Z12.9, CURRENT SMOKER, F17.210 TECHNIQUE: Low-dose noncontrast. COMPARISON: PA and lateral chest from 08/06/2017 FINDINGS: The heart size is normal. Coronary artery calcifications and mild aortic calcifications are seen. There is no adenopathy, pleural or pericardial effusion. The visualized portions of the upper abdome n are grossly intact. There are emphysematous changes, greatest at the lung apices. There is mild u pper lobe bronchiectasis on the right. There is a 3 millimeter nodule at the posterior right lower l obe. IMPRESSION: Lung rads category 2. Annual low-dose screening CT is recommended.
== END 2019-11-14 02:42 ==
PROVIDERS: PCP Specialist/Technologist Athletic Trainer; Visit Provider Nurse Practitioner Family
DX: Z12.2 Encounter for screening for malignant neoplasm of respiratory organs (principal); F17.210 Nicotine dependence, cigarettes, uncomplicated; J47.9 Bronchiectasis, uncomplicated; R91.1 Solitary pulmonary nodule
CPT/HCPCS: G0297

== ENCOUNTER 2019-12-05 08:58 | Outpatient (CLI) | payer MEDICAID, SELFPAY ==
[2019-12-05 09:41] LABS: Abs Immature Grans 0.05 k/cumm (0.0-0.09); Absolute Basophil Count 0.06 k/cumm (0.0-0.2); Absolute Eosinophil Count 0.37 k/cumm (0.0-0.7); Absolute Lymphocyte Count 2.76 k/cumm (1.2-3.4); Absolute Monocyte Count 1.03 k/cumm (0.11-0.7); Absolute Neutrophil Count 7.33 k/cumm (1.2-6.7); Basophils % 0.5; Eosinophils % 3.2; HCT 38.7 % (40.0-50.0); HGB 13.4 g/dL (13.5-17.5); Immature Grans % 0.4 %; Lymphocytes % 23.8; Mean Corp. HGB Concentration 34.6 g/dL (32.0-36.0); Mean Corpuscular Hemoglobin 27.5 pg (27.0-33.0); Mean Corpuscular Volume 79.3 fL (80-95); Mean Platelet Volume 8.6 fL (8.0-11.0); Monocytes % 8.9; Neutrophils % 63.2; Platelet Count 430 x1000/uL (130-400); RBC 4.88 m/cumm (4.50-6.00)
== END 2019-12-05 09:18 ==
PROVIDERS: PCP Specialist/Technologist Athletic Trainer; Visit Provider Nurse Practitioner Family
DX: F20.0 Paranoid schizophrenia (principal); Z79.899 Other long term (current) drug therapy
CPT/HCPCS: 36415; 85025

== ENCOUNTER 2020-01-01 09:46 | Outpatient (CLI) | payer MEDICAID, SELFPAY ==
[2020-01-01 10:24] LABS: Abs Immature Grans 0.03 k/cumm (0.0-0.09); Absolute Basophil Count 0.05 k/cumm (0.0-0.2); Absolute Eosinophil Count 0.34 k/cumm (0.0-0.7); Absolute Lymphocyte Count 2.44 k/cumm (1.2-3.4); Absolute Monocyte Count 1.07 k/cumm (0.11-0.7); Absolute Neutrophil Count 6.16 k/cumm (1.2-6.7); Basophils % 0.5; Eosinophils % 3.4; HCT 37.5 % (40.0-50.0); HGB 12.9 g/dL (13.5-17.5); Immature Grans % 0.3 %; Lymphocytes % 24.2; Mean Corp. HGB Concentration 34.4 g/dL (32.0-36.0); Mean Corpuscular Hemoglobin 27.3 pg (27.0-33.0); Mean Corpuscular Volume 79.3 fL (80-95); Mean Platelet Volume 8.8 fL (8.0-11.0); Monocytes % 10.6; Platelet Count 390 x1000/uL (130-400); RBC 4.73 m/cumm (4.50-6.00); White Blood Cell Count 10.09 k/cumm (4.4-10.8)
== END 2020-01-01 10:06 ==
PROVIDERS: PCP Specialist/Technologist Athletic Trainer; Visit Provider Nurse Practitioner Family
DX: F20.0 Paranoid schizophrenia (principal); Z79.899 Other long term (current) drug therapy
CPT/HCPCS: 36415; 85025

== ENCOUNTER 2020-01-30 13:02 | Outpatient (CLI) | payer MEDICAID, SELFPAY ==
[2020-01-30 13:26] LABS: Abs Immature Grans 0.02 k/cumm (0.0-0.09); Absolute Basophil Count 0.07 k/cumm (0.0-0.2); Absolute Eosinophil Count 0.51 k/cumm (0.0-0.7); Absolute Lymphocyte Count 3.09 k/cumm (1.2-3.4); Absolute Monocyte Count 0.93 k/cumm (0.11-0.7); Basophils % 0.7; Eosinophils % 4.9; HGB 12.5 g/dL (13.5-17.5); Immature Grans % 0.2 %; Lymphocytes % 29.9; Mean Corp. HGB Concentration 34.7 g/dL (32.0-36.0); Mean Corpuscular Hemoglobin 27.7 pg (27.0-33.0); Mean Corpuscular Volume 79.6 fL (80-95); Neutrophils % 55.3; Platelet Count 358 x1000/uL (130-400); RBC 4.52 m/cumm (4.50-6.00); RBC Distribution Width 13.9 % (11.8-14.1); White Blood Cell Count 10.32 k/cumm (4.4-10.8)
== END 2020-01-30 13:22 ==
PROVIDERS: PCP Specialist/Technologist Athletic Trainer; Visit Provider Nurse Practitioner Family
DX: F20.0 Paranoid schizophrenia (principal); Z79.899 Other long term (current) drug therapy
CPT/HCPCS: 36415; 85025

== ENCOUNTER 2020-02-25 13:46 | Outpatient (REF) | payer MEDICAID, SELFPAY ==
[2020-02-27 23:27] LABS: Clozapine 596 ng/mL (>350); Clozapine+Norclozapine Total 995 ng/mL (>450); Norclozapine 399 ng/mL
== END 2020-02-25 14:06 ==
LOC: NCHCN 13:46
PROVIDERS: PCP Specialist/Technologist Athletic Trainer; Visit Provider Family Medicine
DX: F25.8 Other schizoaffective disorders (principal); Z51.81 Encounter for therapeutic drug level monitoring
CPT/HCPCS: 80159

== ENCOUNTER 2020-03-01 13:43 | Outpatient (REF) | payer MEDICAID, SELFPAY ==
[2020-03-01 15:12] LABS: Abs Immature Grans 0.02 k/cumm (0.0-0.09); Absolute Basophil Count 0.04 k/cumm (0.0-0.2); Absolute Eosinophil Count 0.18 k/cumm (0.0-0.7); Absolute Lymphocyte Count 2.91 k/cumm (1.2-3.4); Absolute Neutrophil Count 5.78 k/cumm (1.2-6.7); Basophils % 0.4; Eosinophils % 1.9; HCT 38.9 % (40.0-50.0); HGB 13.4 g/dL (13.5-17.5); Immature Grans % 0.2 %; Lymphocytes % 30.2; Mean Corp. HGB Concentration 34.4 g/dL (32.0-36.0); Mean Corpuscular Hemoglobin 27.3 pg (27.0-33.0); Mean Corpuscular Volume 79.2 fL (80-95); Mean Platelet Volume 9.9 fL (8.0-11.0); Monocytes % 7.3; Platelet Count 502 x1000/uL (130-400); RBC 4.91 m/cumm (4.50-6.00); RBC Distribution Width 14.6 % (11.8-14.1); White Blood Cell Count 9.63 k/cumm (4.4-10.8)
== END 2020-03-01 14:03 ==
LOC: LBN 13:43
PROVIDERS: PCP Specialist/Technologist Athletic Trainer; Visit Provider Nurse Practitioner Family
DX: F20.0 Paranoid schizophrenia (principal); Z79.899 Other long term (current) drug therapy
CPT/HCPCS: 85025

== ENCOUNTER 2020-05-15 03:44 | Outpatient (CLI) | payer MEDICAID, SELFPAY ==
[2020-05-15 08:10] LABS: Abs Immature Grans 0.03 k/cumm (0.0-0.09); Absolute Basophil Count 0.05 k/cumm (0.0-0.2); Absolute Eosinophil Count 0.43 k/cumm (0.0-0.7); Absolute Lymphocyte Count 3.36 k/cumm (1.2-3.4); Absolute Monocyte Count 0.97 k/cumm (0.11-0.7); Absolute Neutrophil Count 6.58 k/cumm (1.2-6.7); Basophils % 0.4; Eosinophils % 3.8; HGB 12.3 g/dL (13.5-17.5); Immature Grans % 0.3 %; Lymphocytes % 29.4; Mean Corp. HGB Concentration 34.2 g/dL (32.0-36.0); Mean Corpuscular Hemoglobin 26.2 pg (27.0-33.0); Mean Corpuscular Volume 76.8 fL (80-95); Mean Platelet Volume 8.8 fL (8.0-11.0); Monocytes % 8.5; Neutrophils % 57.6; Platelet Count 456 x1000/uL (130-400); RBC 4.69 m/cumm (4.50-6.00); RBC Distribution Width 14.6 % (11.8-14.1); White Blood Cell Count 11.43 k/cumm (4.4-10.8)
[2020-05-17 08:57] LABS: Clozapine 270 ng/mL (350-600); Clozapine+Norclozapine Total 529 ng/mL; Norclozapine 259 ng/mL
== END 2020-05-15 04:04 ==
PROVIDERS: PCP Specialist/Technologist Athletic Trainer; Visit Provider Nurse Practitioner Family
DX: F20.9 Schizophrenia, unspecified (principal); Z79.899 Other long term (current) drug therapy; Z51.81 Encounter for therapeutic drug level monitoring
CPT/HCPCS: 36415; 80159; 85025

== ENCOUNTER 2020-06-12 01:13 | Outpatient (CLI) | payer MEDICAID, SELFPAY ==
[2020-06-12 11:25] LABS: Abs Immature Grans 0.02 k/cumm (0.0-0.09); Absolute Basophil Count 0.03 k/cumm (0.0-0.2); Absolute Lymphocyte Count 2.78 k/cumm (1.2-3.4); Absolute Monocyte Count 0.91 k/cumm (0.11-0.7); Basophils % 0.3; Eosinophils % 2.1; HCT 36.7 % (40.0-50.0); HGB 12.4 g/dL (13.5-17.5); Immature Grans % 0.2 %; Lymphocytes % 28.8; Mean Corp. HGB Concentration 33.8 g/dL (32.0-36.0); Mean Corpuscular Hemoglobin 25.5 pg (27.0-33.0); Mean Corpuscular Volume 75.5 fL (80-95); Mean Platelet Volume 9.2 fL (8.0-11.0); Monocytes % 9.4; Neutrophils % 59.2; Platelet Count 375 x1000/uL (130-400); RBC 4.86 m/cumm (4.50-6.00); RBC Distribution Width 15.4 % (11.8-14.1); White Blood Cell Count 9.64 k/cumm (4.4-10.8)
[2020-06-12 12:12] LABS: Calculated LDL 63 mg/dL (<100); Cholesterol 144 mg/dL (<200); Glucose 91 mg/dL (74-106); HDL Cholesterol 27 mg/dL (40-60); Triglyceride 270 mg/dL (<150)
== END 2020-06-12 01:33 ==
PROVIDERS: PCP Specialist/Technologist Athletic Trainer; Visit Provider Nurse Practitioner Family
DX: I10 Essential (primary) hypertension (principal); K21.9 Gastro-esophageal reflux disease without esophagitis; J44.9 Chronic obstructive pulmonary disease, unspecified; F17.220 Nicotine dependence, chewing tobacco, uncomplicated; M54.5 Low back pain; Z79.899 Other long term (current) drug therapy
CPT/HCPCS: 36415; 80061; 82947; 85025

== ENCOUNTER 2020-07-02 01:37 | Outpatient (CLI) | payer MEDICAID, SELFPAY ==
[2020-07-02 12:09] LABS: Abs Immature Grans 0.06 10^3/uL (0.0-0.06); Absolute Basophil Count 0.12 10^3/uL (0.0-0.2); Absolute Eosinophil Count 0.34 10^3/uL (0.0-0.7); Absolute Lymphocyte Count 3.03 10^3/uL (1.2-3.4); Absolute Monocyte Count 0.96 10^3/uL (0.1-0.8); Absolute Neutrophil Count 6.67 10^3/uL (1.2-6.7); Basophils % 1.1; HCT 35.5 % (40.0-50.0); HGB 12.1 g/dL (13.5-17.5); Immature Grans % 0.5; Lymphocytes % 27.1; MCH 25.5 pg (27.0-33.0); MCHC 34.1 % (32.0-36.0); MCV 74.9 fL (80-95); MPV 8.7 fL (8.0-11.0); Monocytes % 8.6; Neutrophils % 59.7; Nucleated RBC 0 %; Platelet Count 440 10^3/uL (130-400); RBC 4.74 10^6/uL (4.36-5.78); RDW 15.7 % (11.8-14.1); RDW-SD 42.6 fL; WBC 11.18 10^3/uL (4.4-10.8)
[2020-07-02 12:34] LABS: Diff Comment RBC Morph Reviewed; Hypochromasia 1+; Microcytosis 3+; Polychromasia Present
== END 2020-07-02 01:57 ==
PROVIDERS: PCP Specialist/Technologist Athletic Trainer; Visit Provider Nurse Practitioner Family
DX: Z79.899 Other long term (current) drug therapy (principal)
CPT/HCPCS: 36415; 85025

== ENCOUNTER 2020-07-31 05:08 | Outpatient (CLI) | payer MEDICAID, SELFPAY ==
[2020-07-31 12:18] LABS: Abs Immature Grans 0.08 10^3/uL (0.0-0.06); Absolute Basophil Count 0.09 10^3/uL (0.0-0.2); Absolute Eosinophil Count 0.32 10^3/uL (0.0-0.7); Absolute Lymphocyte Count 3.24 10^3/uL (1.2-3.4); Absolute Monocyte Count 1.05 10^3/uL (0.1-0.8); Absolute Neutrophil Count 8.71 10^3/uL (1.2-6.7); Basophils % 0.7; Eosinophils % 2.4; HCT 36.9 % (40.0-50.0); HGB 12.6 g/dL (13.5-17.5); Immature Grans % 0.6; MCH 25.8 pg (27.0-33.0); MCHC 34.1 % (32.0-36.0); MCV 75.6 fL (80-95); MPV 8.7 fL (8.0-11.0); Monocytes % 7.8; Neutrophils % 64.5; Nucleated RBC 0 %; Platelet Count 396 10^3/uL (130-400); RBC 4.88 10^6/uL (4.36-5.78); RDW-SD 43.5 fL; WBC 13.51 10^3/uL (4.4-10.8)
== END 2020-07-31 05:28 ==
PROVIDERS: PCP Nurse Practitioner Family; Visit Provider Nurse Practitioner Family
DX: Z79.899 Other long term (current) drug therapy (principal)
CPT/HCPCS: 36415; 85025

== ENCOUNTER 2020-08-29 04:19 | Outpatient (CLI) | payer MEDICAID, SELFPAY ==
[2020-08-29 13:25] LABS: Abs Immature Grans 0.06 10^3/uL (0.0-0.06); Absolute Basophil Count 0.08 10^3/uL (0.0-0.2); Absolute Eosinophil Count 0.24 10^3/uL (0.0-0.7); Absolute Monocyte Count 0.85 10^3/uL (0.1-0.8); Absolute Neutrophil Count 6.28 10^3/uL (1.2-6.7); Basophils % 0.7; Eosinophils % 2.2; HCT 38.7 % (40.0-50.0); HGB 13.3 g/dL (13.5-17.5); Immature Grans % 0.5; Lymphocytes % 31.4; MCH 27.1 pg (27.0-33.0); MCHC 34.4 % (32.0-36.0); MCV 78.8 fL (80-95); MPV 8.6 fL (8.0-11.0); Monocytes % 7.8; Neutrophils % 57.4; Nucleated RBC 0 %; Platelet Count 405 10^3/uL (130-400); RBC 4.91 10^6/uL (4.36-5.78); RDW 15.7 % (11.8-14.1); RDW-SD 44.9 fL; WBC 10.94 10^3/uL (4.4-10.8)
[2020-08-29 13:28] LABS: Absolute Lymphocyte Count 3.44 10^3/uL (1.2-3.4)
== END 2020-08-29 04:39 ==
PROVIDERS: PCP Nurse Practitioner Family; Visit Provider Nurse Practitioner Family
DX: F20.0 Paranoid schizophrenia (principal); Z79.899 Other long term (current) drug therapy
CPT/HCPCS: 36415; 85025

== ENCOUNTER 2020-10-01 03:29 | Outpatient (CLI) | payer MEDICAID, SELFPAY ==
[2020-10-01 11:29] LABS: Abs Immature Grans 0.08 10^3/uL (0.0-0.06); Absolute Basophil Count 0.07 10^3/uL (0.0-0.2); Absolute Eosinophil Count 0.22 10^3/uL (0.0-0.7); Absolute Lymphocyte Count 2.93 10^3/uL (1.2-3.4); Absolute Monocyte Count 1.07 10^3/uL (0.1-0.8); Absolute Neutrophil Count 6.18 10^3/uL (1.2-6.7); Basophils % 0.7; Eosinophils % 2.1; HCT 36.2 % (40.0-50.0); HGB 12.3 g/dL (13.5-17.5); Immature Grans % 0.8; Lymphocytes % 27.8; MCH 26.7 pg (27.0-33.0); MCV 78.5 fL (80-95); MPV 8.4 fL (8.0-11.0); Monocytes % 10.1; Neutrophils % 58.5; Nucleated RBC 0 %; Platelet Count 411 10^3/uL (130-400); RBC 4.61 10^6/uL (4.36-5.78); RDW 14.5 % (11.8-14.1); WBC 10.55 10^3/uL (4.4-10.8)
== END 2020-10-01 03:49 ==
PROVIDERS: PCP Nurse Practitioner Family; Visit Provider Nurse Practitioner Family
DX: F20.0 Paranoid schizophrenia (principal); Z79.899 Other long term (current) drug therapy
CPT/HCPCS: 36415; 85025

== ENCOUNTER 2020-10-29 03:45 | Outpatient (CLI) | payer MEDICAID, SELFPAY ==
[2020-10-29 11:13] LABS: Abs Immature Grans 0.07 10^3/uL (0.0-0.06); Absolute Basophil Count 0.08 10^3/uL (0.0-0.2); Absolute Eosinophil Count 0.24 10^3/uL (0.0-0.7); Absolute Lymphocyte Count 3.19 10^3/uL (1.2-3.4); Absolute Monocyte Count 1.03 10^3/uL (0.1-0.8); Basophils % 0.7; Eosinophils % 2.1; HGB 13.4 g/dL (13.5-17.5); Immature Grans % 0.6; Lymphocytes % 27.6; MCH 27.4 pg (27.0-33.0); MCHC 34.4 % (32.0-36.0); MCV 79.8 fL (80-95); Monocytes % 8.9; Neutrophils % 60.1; Nucleated RBC 0 %; Platelet Count 349 10^3/uL (130-400); RBC 4.89 10^6/uL (4.36-5.78); RDW 14.1 % (11.8-14.1); RDW-SD 40.8 fL; WBC 11.57 10^3/uL (4.4-10.8)
[2020-10-29 11:34] LABS: Absolute Neutrophil Count 6.95 10^3/uL (1.2-6.7)
== END 2020-10-29 04:05 ==
PROVIDERS: PCP Nurse Practitioner Family; Visit Provider Nurse Practitioner Family
DX: F20.0 Paranoid schizophrenia (principal); Z79.899 Other long term (current) drug therapy
CPT/HCPCS: 36415; 85025

== ENCOUNTER 2020-11-19 00:53 | Outpatient (CLI) | payer MEDICAID, SELFPAY ==
--- NOTE | 2020-11-19 10:00 | DI.CTLCSR_ITS ---
EXAM: CT CHEST LUNG CANCER SCREEN CLINICAL HISTORY: SCREENING FOR LUNG CA,Z12.9,CURRENT SMOKER TECHNIQUE: Imaging Protocol: Axial computed tomography images with coronal and sagittal reformatted images were created and reviewed COMPARISON: CT CT CHEST LUNG CANCER SCREEN from 11/14/2019 FINDINGS: Tracheobronchial tree: Patent where visualized. Mediastinum and Marcella: No dominant adenopathy or fluid collection. Pulmonary parenchyma: Centrilobular emphysematous changes are present in the lungs. There is a calci fied granuloma in the right upper lobe. There are small ground-glass opacities in the left upper lob e. No focal consolidating infiltrates are present. Lung Nodules: The 3 mm nodule in the right lower lobe appears stable. There is a 3 mm noncalcified p ulmonary nodule in the left lower lobe. There is a subpleural 2 mm nodule in the right upper lobe. These nodules are unchanged compared to the prior examination. No new pulmonary nodules are present. Pleura: No effusion or pneumothorax. Heart: The heart is not dilated. Moderate coronary artery calcification is present. No pericardial e ffusion. Aorta: Thoracic aorta non-dilated.Atherosclerosis. Upper abdomen: Unremarkable. Bones: Degenerative changes are present in the spine. Soft Tissues: Unremarkable. IMPRESSION: 1. Stable pulmonary nodules. No new pulmonary nodules. 2. Small ground-glass opacities in the left upper lobe. These are nonspecific. Differential conside rations should include infectious or inflammatory pneumonitis (including an atypical pneumonia), pulm onary edema or hemorrhage. Please correlate with patient's clinical findings. Lung RADS Cat 2 - Benign Appearance / Behavior: Nodules with a very low likelihood of becoming a clin ically active cancer due to size or lack of growth Lung-RADS 1.0 CATEGORIES: Category 0 - Prior chest CT exam(s) being located for comparison. Category 1 - Annual screening in 12 months. No nodules or definitely benign nodules. Category 2 - Annual screening in 12 months. Benign appearance. Nodules with low likelihood of becomin g active cancer. Category 3 - 6-month follow-up. Probably benign. Short-term follow-up suggested. Nodules with low lik elihood of becoming active cancer. Category 4A - 3-month follow-up and CT/PET if >8 mm in size. Suspicious finding. Findings which requi re additional testing. Category 4B - Findings which require additional testing and tissue sampling. Suspicious finding. C Added to Any of the Above - History of prior lung cancer screening. S Added to Any of the Above - Significant unexpected other finding. RADIATION DOSE DELIVERED: 84.89mGy.cm Total DLP DATA REPOSITORY: All CT scans at this facility are submitted to the National Radiology Data Registry (NRDR) Dose Index Registry (DIR) with the [employer] (ACR). RADIATION OPTIMIZATION: All CT scans at this facility use at least one of these dose optimization te chniques: automated exposure control; mA and/or kV adjustment per patient size (includes targeted exa ms where dose is matched to clinical indication); or iterative reconstruction.
== END 2020-11-19 01:13 ==
PROVIDERS: PCP Nurse Practitioner Family; Visit Provider Nurse Practitioner Family
DX: R91.8 Other nonspecific abnormal finding of lung field (principal); F17.210 Nicotine dependence, cigarettes, uncomplicated
CPT/HCPCS: G0297

== ENCOUNTER 2020-11-26 03:13 | Outpatient (CLI) | payer MEDICAID, SELFPAY ==
[2020-11-26 11:01] LABS: Abs Immature Grans 0.05 10^3/uL (0.0-0.06); Absolute Eosinophil Count 0.13 10^3/uL (0.0-0.7); Absolute Monocyte Count 0.67 10^3/uL (0.1-0.8); Absolute Neutrophil Count 7.16 10^3/uL (1.2-6.7); Basophils % 0.4; Eosinophils % 1.2; HCT 40.5 % (40.0-50.0); HGB 13.7 g/dL (13.5-17.5); Immature Grans % 0.4; Lymphocytes % 27.8; MCH 27.1 pg (27.0-33.0); MCHC 33.8 % (32.0-36.0); MCV 80.2 fL (80-95); MPV 8.7 fL (8.0-11.0); Neutrophils % 64.2; Nucleated RBC 0 %; Platelet Count 421 10^3/uL (130-400); RBC 5.05 10^6/uL (4.36-5.78); RDW 13.7 % (11.8-14.1); RDW-SD 39.6 fL; WBC 11.16 10^3/uL (4.4-10.8)
[2020-11-26 11:05] LABS: Absolute Basophil Count 0.04 10^3/uL (0.0-0.2)
[2020-11-26 11:45] LABS: Anion Gap 6.3 mmol/L (3-11); BUN 21 mg/dL (7-18); CO2 29.7 mmol/L (21.0-32.0); CREATININE 1.19 mg/dL (0.70-1.30); Calcium 8.5 mg/dL (8.5-10.1); Chloride 107 mmol/L (98-107); Glucose 134 mg/dL (74-106); HDL Cholesterol 26 mg/dL (40-60); LDL CHOLESTEROL 118 mg/dL (<100); Potassium 4.3 mmol/L (3.5-5.1); Sodium 143 mmol/L (136-145)
== END 2020-11-26 03:33 ==
PROVIDERS: Nurse Practitioner Family; PCP Nurse Practitioner Family; Visit Provider Psychiatry & Neurology Psychiatry
DX: I10 Essential (primary) hypertension (principal); F17.200 Nicotine dependence, unspecified, uncomplicated; F20.0 Paranoid schizophrenia; Z82.49 Family history of ischemic heart disease and other diseases of the circulatory system; Z79.899 Other long term (current) drug therapy
CPT/HCPCS: 36415; 80048; 83721; 83718; 85025

== ENCOUNTER 2020-12-12 01:45 | Outpatient (CLI) | payer MEDICAID, SELFPAY ==
--- NOTE | 2020-12-12 | DI.CT_ITS ---
EXAM: CT CHEST W CLINICAL HISTORY: F/U ABNL CT, SMOKER, GROUNDGLASS OPACITIES,R91.8. TECHNIQUE: Imaging Protocol: Axial CT angiography was performed with multi-slice acquisition and mu lti-planar and/or 3D reconstructions. CONTRAST MATERIAL: Intravenous: Omnipaque 350 Contrast volume:structured data in ml COMPARISON: CT CT CHEST LUNG CANCER SCREEN from 11/19/2020 FINDINGS: CT examination of the chest was performed with intravenous infusion of 100 cc of Omnipaque 350. The examination is compared with prior study of November 19. Previously noted left upper lobe grou nd-glass opacities significantly decreased or absent, small multi nodular focus, nodule versus consol idative and/or ground-glass opacity, is unchanged and lies adjacent to the interlobar fissure on the left. Tiny pulmonary nodules are again noted. Calcified right upper lobe nodule again noted. Emphy sematous changes again noted. No pleural effusion. Tracheobronchial tree appears intact. No evidence of pulmonary embolic disease. Thoracic aorta is of normal diameter, no thoracic aortic an eurysm or dissection, major branch vessels appear intact. No mediastinal or hilar adenopathy. Images obtained through the upper abdomen show unremarkable appearance of the visualized portions of the liver, spleen, pancreas, adrenals, and kidneys. IMPRESSION: Interval decrease in prominence of left upper lobe ground-glass opacities. Persistent indeterminate somewhat nodular consolidative and/or ground-glass focus adjacent to interlobar fissure in left upper lobe. Follow-up chest CT recommended in 6 months. Neoplastic disease not excluded. RADIATION DOSE DELIVERED: 444.25mGy.cm Total DLP 444.25mGy.cm Total DLP DATA REPOSITORY: All CT scans at this facility are submitted to the National Radiology Data Registry (NRDR) Dose Index Registry (DIR) with the [employer] (ACR). RADIATION OPTIMIZATION: All CT scans at this facility use at least one of these dose optimization te chniques: automated exposure control; mA and/or kV adjustment per patient size (includes targeted exa ms where dose is matched to clinical indication); or iterative reconstruction.
[2020-12-12] MEDS: Normal Saline - Diluent 50 ML VIAL IV (08:52)
[2020-12-12] MEDS: Omnipaque 350 MG/ML 100 ML BTL IJ (08:52)
== END 2020-12-12 02:05 ==
PROVIDERS: PCP Nurse Practitioner Family; Visit Provider Nurse Practitioner Family
DX: R91.8 Other nonspecific abnormal finding of lung field (principal); F17.210 Nicotine dependence, cigarettes, uncomplicated
CPT/HCPCS: 71260; J3490

== ENCOUNTER 2020-12-25 02:57 | Outpatient (CLI) | payer MEDICAID, SELFPAY ==
[2020-12-25 09:38] LABS: Abs Immature Grans 0.05 10^3/uL (0.0-0.06); Absolute Basophil Count 0.06 10^3/uL (0.0-0.2); Absolute Eosinophil Count 0.27 10^3/uL (0.0-0.7); Absolute Monocyte Count 0.64 10^3/uL (0.1-0.8); Absolute Neutrophil Count 6.54 10^3/uL (1.2-6.7); Basophils % 0.6; Eosinophils % 2.6; HCT 37.3 % (40.0-50.0); HGB 12.8 g/dL (13.5-17.5); Immature Grans % 0.5; Lymphocytes % 27.7; MCH 27.2 pg (27.0-33.0); MCHC 34.3 % (32.0-36.0); MCV 79.2 fL (80-95); Monocytes % 6.1; Neutrophils % 62.5; Nucleated RBC 0 %; Platelet Count 381 10^3/uL (130-400); RBC 4.71 10^6/uL (4.36-5.78); RDW 13.5 % (11.8-14.1); RDW-SD 38.8 fL; WBC 10.46 10^3/uL (4.4-10.8)
== END 2020-12-25 03:17 ==
PROVIDERS: PCP Nurse Practitioner Family; Visit Provider Psychiatry & Neurology Psychiatry
DX: F20.0 Paranoid schizophrenia (principal); Z79.899 Other long term (current) drug therapy; R73.9 Hyperglycemia, unspecified
CPT/HCPCS: 36415; 83036; 85025

== ENCOUNTER 2021-01-21 02:24 | Outpatient (CLI) | payer MEDICAID, SELFPAY ==
[2021-01-21 10:16] LABS: Abs Immature Grans 0.06 10^3/uL (0.0-0.06); Absolute Basophil Count 0.07 10^3/uL (0.0-0.2); Absolute Eosinophil Count 0.28 10^3/uL (0.0-0.7); Absolute Lymphocyte Count 3.07 10^3/uL (1.2-3.4); Absolute Monocyte Count 0.79 10^3/uL (0.1-0.8); Basophils % 0.6; Eosinophils % 2.5; HGB 13.6 g/dL (13.5-17.5); Immature Grans % 0.5; Lymphocytes % 27.4; MCH 27.3 pg (27.0-33.0); MCV 80.2 fL (80-95); MPV 8.9 fL (8.0-11.0); Nucleated RBC 0 %; Platelet Count 367 10^3/uL (130-400); RBC 4.99 10^6/uL (4.36-5.78); RDW 13.8 % (11.8-14.1); RDW-SD 39.8 fL; WBC 11.22 10^3/uL (4.4-10.8)
[2021-01-21 10:30] LABS: Absolute Neutrophil Count 6.96 10^3/uL (1.2-6.7)
== END 2021-01-21 02:25 | disposition home or self-care (01) ==
LOC: LBO 02:24
PROVIDERS: PCP Nurse Practitioner Family; Visit Provider Psychiatry & Neurology Psychiatry
DX: F20.0 Paranoid schizophrenia (principal); Z79.899 Other long term (current) drug therapy
CPT/HCPCS: 36415; 85025

== ENCOUNTER 2021-02-10 03:11 | Outpatient (CLI) | payer MEDICAID, SELFPAY ==
[2021-02-10 10:21] LABS: Abs Immature Grans 0.08 10^3/uL (0.0-0.06); Absolute Basophil Count 0.07 10^3/uL (0.0-0.2); Absolute Eosinophil Count 0.31 10^3/uL (0.0-0.7); Absolute Lymphocyte Count 2.39 10^3/uL (1.2-3.4); Absolute Neutrophil Count 7.35 10^3/uL (1.2-6.7); Basophils % 0.6; Eosinophils % 2.8; HCT 37.8 % (40.0-50.0); HGB 12.6 g/dL (13.5-17.5); Immature Grans % 0.7; Lymphocytes % 21.4; MCH 26.9 pg (27.0-33.0); MCHC 33.3 % (32.0-36.0); MCV 80.6 fL (80-95); MPV 8.5 fL (8.0-11.0); Monocytes % 8.8; Neutrophils % 65.7; Nucleated RBC 0 %; Platelet Count 468 10^3/uL (130-400); RBC 4.69 10^6/uL (4.36-5.78); RDW 13.5 % (11.8-14.1); RDW-SD 39.5 fL; WBC 11.19 10^3/uL (4.4-10.8)
[2021-02-10 10:24] LABS: Absolute Monocyte Count 0.98 10^3/uL (0.1-0.8)
== END 2021-02-10 03:12 | disposition home or self-care (01) ==
LOC: LBO 03:12
PROVIDERS: PCP Nurse Practitioner Family; Visit Provider Psychiatry & Neurology Psychiatry
DX: F20.0 Paranoid schizophrenia (principal); Z79.899 Other long term (current) drug therapy
CPT/HCPCS: 36415; 85025

== ENCOUNTER 2021-03-04 04:02 | Outpatient (CLI) | payer MEDICAID, SELFPAY ==
[2021-03-04 10:47] LABS: Abs Immature Grans 0.04 10^3/uL (0.0-0.06); Absolute Basophil Count 0.09 10^3/uL (0.0-0.2); Absolute Eosinophil Count 0.31 10^3/uL (0.0-0.7); Absolute Lymphocyte Count 3.02 10^3/uL (1.2-3.4); Absolute Monocyte Count 0.89 10^3/uL (0.1-0.8); Absolute Neutrophil Count 6.67 10^3/uL (1.2-6.7); Basophils % 0.8; Eosinophils % 2.8; HGB 13.6 g/dL (13.5-17.5); Immature Grans % 0.4; Lymphocytes % 27.4; MCH 26.9 pg (27.0-33.0); MCHC 33.2 % (32.0-36.0); MPV 8.8 fL (8.0-11.0); Monocytes % 8.1; Neutrophils % 60.5; Nucleated RBC 0 %; Platelet Count 391 10^3/uL (130-400); RBC 5.06 10^6/uL (4.36-5.78); RDW 14.3 % (11.8-14.1); RDW-SD 41.6 fL; WBC 11.02 10^3/uL (4.4-10.8)
== END 2021-03-04 04:03 | disposition home or self-care (01) ==
PROVIDERS: PCP Nurse Practitioner Family; Visit Provider Psychiatry & Neurology Psychiatry
DX: F20.0 Paranoid schizophrenia (principal); Z79.899 Other long term (current) drug therapy
CPT/HCPCS: 36415; 85025

== ENCOUNTER 2021-04-08 03:32 | Outpatient (CLI) | payer MEDICAID, SELFPAY ==
[2021-04-08 13:20] LABS: Abs Immature Grans 0.06 10^3/uL (0.0-0.06); Absolute Basophil Count 0.06 10^3/uL (0.0-0.2); Absolute Eosinophil Count 0.37 10^3/uL (0.0-0.7); Absolute Lymphocyte Count 2.67 10^3/uL (1.2-3.4); Absolute Monocyte Count 0.96 10^3/uL (0.1-0.8); Basophils % 0.5; Eosinophils % 3.3; HCT 35.3 % (40.0-50.0); HGB 11.7 g/dL (13.5-17.5); Immature Grans % 0.5; Lymphocytes % 24.1; MCH 26.5 pg (27.0-33.0); MCHC 33.1 % (32.0-36.0); MPV 8.7 fL (8.0-11.0); Monocytes % 8.7; Neutrophils % 62.9; Nucleated RBC 0 %; Platelet Count 412 10^3/uL (130-400); RBC 4.41 10^6/uL (4.36-5.78); RDW-SD 40.8 fL; WBC 11.09 10^3/uL (4.4-10.8)
[2021-04-08 14:03] LABS: Absolute Neutrophil Count 6.98 10^3/uL (1.2-6.7)
== END 2021-04-08 03:33 | disposition home or self-care (01) ==
LOC: LBO 03:32
PROVIDERS: PCP Nurse Practitioner Family; Visit Provider Psychiatry & Neurology Psychiatry
DX: F20.0 Paranoid schizophrenia (principal); Z79.899 Other long term (current) drug therapy
CPT/HCPCS: 36415; 85025

== ENCOUNTER 2021-05-06 03:59 | Outpatient (CLI) | payer MEDICAID, SELFPAY ==
[2021-05-06 09:01] LABS: Abs Immature Grans 0.04 10^3/uL (0.0-0.06); Absolute Basophil Count 0.07 10^3/uL (0.0-0.2); Absolute Eosinophil Count 0.27 10^3/uL (0.0-0.7); Absolute Lymphocyte Count 3.33 10^3/uL (1.2-3.4); Absolute Monocyte Count 0.67 10^3/uL (0.1-0.8); Absolute Neutrophil Count 7.39 10^3/uL (1.2-6.7); Basophils % 0.6; Eosinophils % 2.3; HCT 42.9 % (40.0-50.0); HGB 14.4 g/dL (13.5-17.5); Immature Grans % 0.3; Lymphocytes % 28.3; MCH 26.7 pg (27.0-33.0); MCHC 33.6 % (32.0-36.0); MCV 79.4 fL (80-95); MPV 9.1 fL (8.0-11.0); Monocytes % 5.7; Neutrophils % 62.8; Nucleated RBC 0 %; Platelet Count 330 10^3/uL (130-400); RDW 14.5 % (11.8-14.1); RDW-SD 41.6 fL; WBC 11.77 10^3/uL (4.4-10.8)
== END 2021-05-06 04:00 | disposition home or self-care (01) ==
LOC: LBO 03:59
PROVIDERS: PCP Nurse Practitioner Family; Visit Provider Psychiatry & Neurology Psychiatry
DX: F20.0 Paranoid schizophrenia (principal); Z79.899 Other long term (current) drug therapy
CPT/HCPCS: 36415; 85025

== ENCOUNTER 2021-06-03 04:14 | Outpatient (CLI) | payer MEDICAID, SELFPAY ==
[2021-06-03 10:21] LABS: Abs Immature Grans 0.05 10^3/uL (0.0-0.06); Absolute Eosinophil Count 0.28 10^3/uL (0.0-0.7); Absolute Lymphocyte Count 2.05 10^3/uL (1.2-3.4); Absolute Monocyte Count 0.95 10^3/uL (0.1-0.8); Basophils % 0.6; Eosinophils % 2.6; HCT 37.9 % (40.0-50.0); HGB 12.7 g/dL (13.5-17.5); Immature Grans % 0.5; Lymphocytes % 18.8; MCH 26.5 pg (27.0-33.0); MCHC 33.5 % (32.0-36.0); MCV 79.1 fL (80-95); MPV 8.7 fL (8.0-11.0); Monocytes % 8.7; Neutrophils % 68.8; Nucleated RBC 0 %; Platelet Count 362 10^3/uL (130-400); RBC 4.79 10^6/uL (4.36-5.78); RDW 14.3 % (11.8-14.1); WBC 10.89 10^3/uL (4.4-10.8)
[2021-06-03 10:28] LABS: Absolute Basophil Count 0.07 10^3/uL (0.0-0.2); Absolute Neutrophil Count 7.49 10^3/uL (1.2-6.7)
== END 2021-06-03 04:15 | disposition home or self-care (01) ==
LOC: LBO 04:14
PROVIDERS: PCP Nurse Practitioner Family; Visit Provider Psychiatry & Neurology Psychiatry
DX: F20.0 Paranoid schizophrenia (principal); Z79.899 Other long term (current) drug therapy
CPT/HCPCS: 36415; 85025

== ENCOUNTER 2021-07-01 03:55 | Outpatient (CLI) | payer MEDICAID, SELFPAY ==
[2021-07-01 10:41] LABS: Abs Immature Grans 0.06 10^3/uL (0.0-0.06); Absolute Basophil Count 0.09 10^3/uL (0.0-0.2); Basophils % 0.6; Eosinophils % 1.6; HCT 37.2 % (40.0-50.0); HGB 12.8 g/dL (13.5-17.5); Immature Grans % 0.4; Lymphocytes % 17.4; MCH 27.2 pg (27.0-33.0); MCHC 34.4 % (32.0-36.0); MPV 8.4 fL (8.0-11.0); Monocytes % 7.8; Neutrophils % 72.2; Nucleated RBC 0 %; Platelet Count 321 10^3/uL (130-400); RBC 4.71 10^6/uL (4.36-5.78); RDW-SD 40.6 fL; WBC 15.31 10^3/uL (4.4-10.8)
[2021-07-01 10:42] LABS: Absolute Eosinophil Count 0.24 10^3/uL (0.0-0.7); Absolute Lymphocyte Count 2.66 10^3/uL (1.2-3.4); Absolute Monocyte Count 1.19 10^3/uL (0.1-0.8); Absolute Neutrophil Count 11.05 10^3/uL (1.2-6.7)
== END 2021-07-01 03:56 | disposition home or self-care (01) ==
LOC: LBO 03:55
PROVIDERS: PCP Nurse Practitioner Family; Visit Provider Psychiatry & Neurology Psychiatry
DX: F20.0 Paranoid schizophrenia (principal); Z79.899 Other long term (current) drug therapy
CPT/HCPCS: 36415; 85025

== ENCOUNTER 2021-07-31 03:35 | Outpatient (CLI) | payer MEDICAID, SELFPAY ==
[2021-07-31 10:26] LABS: Abs Immature Grans 0.05 10^3/uL (0.0-0.06); Absolute Eosinophil Count 0.17 10^3/uL (0.0-0.7); Absolute Monocyte Count 0.97 10^3/uL (0.1-0.8); Basophils % 0.6; Eosinophils % 1.4; HCT 42.2 % (40.0-50.0); HGB 14.1 g/dL (13.5-17.5); Immature Grans % 0.4; Lymphocytes % 20.9; MCHC 33.4 % (32.0-36.0); MCV 80.7 fL (80-95); MPV 8.8 fL (8.0-11.0); Monocytes % 7.8; Neutrophils % 68.9; Nucleated RBC 0 %; Platelet Count 384 10^3/uL (130-400); RBC 5.23 10^6/uL (4.36-5.78); RDW 14.2 % (11.8-14.1); RDW-SD 41.5 fL; WBC 12.46 10^3/uL (4.4-10.8)
[2021-07-31 10:28] LABS: Absolute Basophil Count 0.07 10^3/uL (0.0-0.2); Absolute Neutrophil Count 8.58 10^3/uL (1.2-6.7)
== END 2021-07-31 03:36 | disposition home or self-care (01) ==
LOC: LBO 03:35
PROVIDERS: PCP Nurse Practitioner Family; Visit Provider Psychiatry & Neurology Psychiatry
DX: F20.0 Paranoid schizophrenia (principal); Z79.899 Other long term (current) drug therapy
CPT/HCPCS: 36415; 85025

== ENCOUNTER 2021-09-01 03:59 | Outpatient (CLI) | payer MEDICAID, SELFPAY ==
[2021-09-01 09:54] LABS: Abs Immature Grans 0.06 10^3/uL (0.0-0.06); Absolute Lymphocyte Count 2.96 10^3/uL (1.2-3.4); Basophils % 0.8; Eosinophils % 2.3; HCT 37.6 % (40.0-50.0); HGB 12.7 g/dL (13.5-17.5); Immature Grans % 0.5; Lymphocytes % 23.9; MCH 26.8 pg (27.0-33.0); MCHC 33.8 % (32.0-36.0); MCV 79.5 fL (80-95); MPV 8.3 fL (8.0-11.0); Monocytes % 8.1; Neutrophils % 64.4; Nucleated RBC 0 %; Platelet Count 379 10^3/uL (130-400); RBC 4.73 10^6/uL (4.36-5.78); RDW 13.8 % (11.8-14.1); RDW-SD 40.1 fL
[2021-09-01 09:56] LABS: Absolute Eosinophil Count 0.29 10^3/uL (0.0-0.7); Absolute Neutrophil Count 7.99 10^3/uL (1.2-6.7)
== END 2021-09-01 04:00 | disposition home or self-care (01) ==
LOC: LBO 03:59
PROVIDERS: PCP Nurse Practitioner Family; Visit Provider Psychiatry & Neurology Psychiatry
DX: F20.0 Paranoid schizophrenia (principal); Z79.899 Other long term (current) drug therapy
CPT/HCPCS: 36415; 85025

== ENCOUNTER 2021-09-30 02:24 | Outpatient (CLI) | payer MEDICAID, SELFPAY ==
[2021-09-30 11:06] LABS: Abs Immature Grans 0.09 10^3/uL (0.0-0.06); Absolute Basophil Count 0.12 10^3/uL (0.0-0.2); Absolute Eosinophil Count 0.44 10^3/uL (0.0-0.7); Absolute Lymphocyte Count 2.33 10^3/uL (1.2-3.4); Absolute Neutrophil Count 10.85 10^3/uL (1.2-6.7); Basophils % 0.8; Eosinophils % 2.9; HCT 37.6 % (40.0-50.0); HGB 12.6 g/dL (13.5-17.5); Immature Grans % 0.6; Lymphocytes % 15.4; MCHC 33.5 % (32.0-36.0); MCV 80.7 fL (80-95); MPV 8.8 fL (8.0-11.0); Monocytes % 8.6; Neutrophils % 71.7; Nucleated RBC 0 %; Platelet Count 397 10^3/uL (130-400); RBC 4.66 10^6/uL (4.36-5.78); RDW 13.9 % (11.8-14.1); RDW-SD 40.7 fL; WBC 15.13 10^3/uL (4.4-10.8)
== END 2021-09-30 02:25 | disposition home or self-care (01) ==
LOC: LBO 02:24
PROVIDERS: PCP Nurse Practitioner Family; Visit Provider Psychiatry & Neurology Psychiatry
DX: Z79.899 Other long term (current) drug therapy (principal)
CPT/HCPCS: 36415; 85025

== ENCOUNTER 2021-10-29 02:45 | Outpatient (CLI) | payer MEDICAID, SELFPAY ==
[2021-10-29 14:26] LABS: Abs Immature Grans 0.04 10^3/uL (0.0-0.06); Absolute Basophil Count 0.07 10^3/uL (0.0-0.2); Absolute Lymphocyte Count 3.34 10^3/uL (1.2-3.4); Absolute Neutrophil Count 7.25 10^3/uL (1.2-6.7); Basophils % 0.6; Eosinophils % 2.5; HCT 40.5 % (40.0-50.0); HGB 13.8 g/dL (13.5-17.5); Immature Grans % 0.3; Lymphocytes % 28.1; MCH 27.7 pg (27.0-33.0); MCHC 34.1 % (32.0-36.0); MCV 81.2 fL (80-95); MPV 8.8 fL (8.0-11.0); Monocytes % 7.6; Neutrophils % 60.9; Nucleated RBC 0 %; Platelet Count 400 10^3/uL (130-400); RBC 4.99 10^6/uL (4.36-5.78); RDW 13.6 % (11.8-14.1); RDW-SD 40.1 fL
== END 2021-10-29 02:46 | disposition home or self-care (01) ==
LOC: LBO 02:45
PROVIDERS: PCP Nurse Practitioner Family; Visit Provider Psychiatry & Neurology Psychiatry
DX: Z79.899 Other long term (current) drug therapy (principal)
CPT/HCPCS: 36415; 85025

== ENCOUNTER 2021-11-12 14:44 | Outpatient (REF) | payer MEDICAID, SELFPAY ==
[2021-11-12 13:18] LABS: Hemoglobin A1C 5.8 % (<5.7)
[2021-11-12 14:01] LABS: ALT 27 U/L (16-63); AST 16 U/L (15-37); Albumin 4.3 g/dL (3.4-5.0); Alkaline Phosphatase 85 U/L (46-116); Anion Gap 8.1 mmol/L (3-11); BUN 20 mg/dL (7-18); Bilirubin, Total 0.3 mg/dL (0.2-1.0); CO2 29.9 mmol/L (21.0-32.0); CREATININE 0.9 mg/dL (0.70-1.30); Chloride 106 mmol/L (98-107); Glucose 97 mg/dL (74-106); HDL Cholesterol 31 mg/dL (40-60); LDL CHOLESTEROL 61 mg/dL (<100); Potassium 4.2 mmol/L (3.5-5.1); Sodium 144 mmol/L (136-145)
[2021-11-12 14:17] LABS: Creatine Kinase 187 U/L (39-308)
[2021-11-13 00:42] LABS: Vitamin D 25 Total 39.3 ng/mL (30-100)
== END 2021-11-12 14:45 | disposition home or self-care (01) ==
LOC: NCHCN 14:44
PROVIDERS: PCP Nurse Practitioner Family; Visit Provider Nurse Practitioner Family
DX: I10 Essential (primary) hypertension (principal); E78.89 Other lipoprotein metabolism disorders; B19.20 Unspecified viral hepatitis C without hepatic coma; R73.09 Other abnormal glucose; R53.83 Other fatigue; R79.89 Other specified abnormal findings of blood chemistry
CPT/HCPCS: 80053; 82306; 82550; 83721; 83036; 83718

== ENCOUNTER 2021-11-25 01:59 | Outpatient (CLI) | payer MEDICAID, SELFPAY ==
--- NOTE | 2021-11-25 | DI.CT_ITS ---
Exam(s) CT CHEST WO EXAM: CT CHEST WO CLINICAL HISTORY: SCREENING FOR CANCER Z12.9, LATE FOR 6 MO FU, ? STATUS OF OPACITIES TECHNIQUE: CT examination of the chest was performed utilizing low-dose lung cancer screening protoc ol. COMPARISON: CT CT CHEST W from 12/12/2020 FINDINGS: Images obtained through the upper abdomen show unremarkable appearance of visualized portions of the liver and spleen. Note is made of coronary artery calcification. There is no mediastinal or hilar adenopathy. Mediastinal vascular structures appear intact by noncon trast criteria. Tracheobronchial tree appears intact. No pleural effusion or pleural-based mass. There are central lobular pulmonary emphysematous changes. There are multiple small stable noncalcif ied pulmonary nodules bilaterally and there is calcified right apical nodule. A previously noted nod ular and ground-glass radiodensity projected adjacent to the inner lobar fissure in the left upper lo be seen on CT of December 12 of this year has increased in size from about 5 millimeter solid compon ent to about 10 millimeter solid component on today's examination. This has a mildly spiculated appe arance. The marked interval increase in size over this time interval is highly suspicious for neopla stic disease. IMPRESSION: Suspicious growth of a left upper lobe noncalcified spiculated pulmonary nodule which now measures ab out 10 millimeters mean diameter. Additional evaluation with tissue sampling recommended. Lung RADS Cat 4B - Suspicious: Findings for which additional diagnostic testing and/or tissue samplin g is recommended . RADIATION DOSE DELIVERED: 538.96mGy.cm Total DLP 13.21mGy CTDIvol 538.96mGy.cm Total DLP 13.21mGy CTDIvol RADIATION OPTIMIZATION: All CT scans at this facility use at least one of these dose optimization te chniques: automated exposure control; mA and/or kV adjustment per patient size (includes targeted exa ms where dose is matched to clinical indication); or iterative reconstruction.
== END 2021-11-25 02:19 ==
PROVIDERS: PCP Nurse Practitioner Family; Visit Provider Nurse Practitioner Family
DX: J43.9 Emphysema, unspecified (principal); R91.8 Other nonspecific abnormal finding of lung field; D38.1 Neoplasm of uncertain behavior of trachea, bronchus and lung
CPT/HCPCS: 71250

== ENCOUNTER 2021-12-01 02:45 | Outpatient (CLI) | payer MEDICAID, SELFPAY ==
[2021-12-01 11:56] LABS: Abs Immature Grans 0.05 10^3/uL (0.0-0.06); Absolute Basophil Count 0.08 10^3/uL (0.0-0.2); Absolute Eosinophil Count 0.33 10^3/uL (0.0-0.7); Absolute Lymphocyte Count 2.51 10^3/uL (1.2-3.4); Absolute Monocyte Count 0.91 10^3/uL (0.1-0.8); Basophils % 0.7; HCT 39.2 % (40.0-50.0); HGB 13.4 g/dL (13.5-17.5); Immature Grans % 0.5; Lymphocytes % 22.9; MCH 27.5 pg (27.0-33.0); MCHC 34.2 % (32.0-36.0); MCV 80.5 fL (80-95); MPV 8.5 fL (8.0-11.0); Monocytes % 8.3; Neutrophils % 64.6; Nucleated RBC 0 %; Platelet Count 379 10^3/uL (130-400); RBC 4.87 10^6/uL (4.36-5.78); RDW 13.2 % (11.8-14.1); RDW-SD 38.5 fL; WBC 10.94 10^3/uL (4.4-10.8)
[2021-12-01 12:00] LABS: Absolute Neutrophil Count 7.07 10^3/uL (1.2-6.7)
== END 2021-12-01 02:46 | disposition home or self-care (01) ==
LOC: LBO 02:45
PROVIDERS: PCP Nurse Practitioner Family; Visit Provider Psychiatry & Neurology Psychiatry
DX: Z79.899 Other long term (current) drug therapy (principal)
CPT/HCPCS: 36415; 85025

== ENCOUNTER 2021-12-24 01:39 | Outpatient (CLI) | payer MEDICAID, SELFPAY ==
[2021-12-24 13:49] LABS: Abs Immature Grans 0.04 10^3/uL (0.0-0.06); Absolute Basophil Count 0.06 10^3/uL (0.0-0.2); Absolute Eosinophil Count 0.36 10^3/uL (0.0-0.7); Basophils % 0.5; Eosinophils % 3.2; HCT 40.2 % (40.0-50.0); HGB 13.4 g/dL (13.5-17.5); Immature Grans % 0.4; Lymphocytes % 26.8; MCH 27.1 pg (27.0-33.0); MCHC 33.3 % (32.0-36.0); MCV 81.2 fL (80-95); MPV 9.1 fL (8.0-11.0); Monocytes % 7.9; Neutrophils % 61.2; Nucleated RBC 0 %; Platelet Count 428 10^3/uL (130-400); RBC 4.95 10^6/uL (4.36-5.78); RDW 13.5 % (11.8-14.1); RDW-SD 39.6 fL
[2021-12-24 13:58] LABS: Absolute Lymphocyte Count 3.06 10^3/uL (1.2-3.4); Absolute Neutrophil Count 6.98 10^3/uL (1.2-6.7)
== END 2021-12-24 01:40 | disposition home or self-care (01) ==
LOC: LBO 01:39
PROVIDERS: PCP Nurse Practitioner Family; Visit Provider Psychiatry & Neurology Psychiatry
DX: Z79.899 Other long term (current) drug therapy (principal)
CPT/HCPCS: 36415; 85025

== ENCOUNTER 2022-01-19 02:46 | Outpatient (CLI) | payer MEDICAID, SELFPAY ==
[2022-01-19 11:25] LABS: Abs Immature Grans 0.05 10^3/uL (0.0-0.06); Absolute Basophil Count 0.07 10^3/uL (0.0-0.2); Absolute Eosinophil Count 0.35 10^3/uL (0.0-0.7); Absolute Lymphocyte Count 3.12 10^3/uL (1.2-3.4); Absolute Monocyte Count 0.93 10^3/uL (0.1-0.8); Absolute Neutrophil Count 6.17 10^3/uL (1.2-6.7); Basophils % 0.7; Eosinophils % 3.3; HCT 38.3 % (40.0-50.0); HGB 12.9 g/dL (13.5-17.5); Immature Grans % 0.5; Lymphocytes % 29.2; MCH 27.3 pg (27.0-33.0); MCHC 33.7 % (32.0-36.0); MCV 81.1 fL (80-95); MPV 8.6 fL (8.0-11.0); Monocytes % 8.7; Neutrophils % 57.6; Nucleated RBC 0 %; Platelet Count 385 10^3/uL (130-400); RBC 4.72 10^6/uL (4.36-5.78); RDW 13.2 % (11.8-14.1); RDW-SD 39.1 fL; WBC 10.69 10^3/uL (4.4-10.8)
== END 2022-01-19 02:47 | disposition home or self-care (01) ==
LOC: LBO 02:46
PROVIDERS: PCP Nurse Practitioner Family; Visit Provider Psychiatry & Neurology Psychiatry
DX: F20.0 Paranoid schizophrenia (principal); Z79.899 Other long term (current) drug therapy
CPT/HCPCS: 36415; 85025

== ENCOUNTER 2022-01-30 01:46 | Outpatient (CLI) | payer MEDICAID, SELFPAY ==
[2022-01-30 12:11] LABS: Source Nasal/Nares
[2022-01-30 14:55] LABS: COVID-19 PCR Negative (Negative)
== END 2022-01-30 01:47 | disposition home or self-care (01) ==
LOC: LBO 01:46
PROVIDERS: PCP Nurse Practitioner Family; Visit Provider Thoracic Surgery (Cardiothoracic Vascular Surgery)
DX: Z20.822 Contact with and (suspected) exposure to COVID-19 (principal); Z01.818 Encounter for other preprocedural examination
CPT/HCPCS: 87635

== ENCOUNTER 2022-02-16 03:27 | Outpatient (CLI) | payer MEDICAID, SELFPAY ==
[2022-02-16 10:39] LABS: Abs Immature Grans 0.06 10^3/uL (0.0-0.06); Absolute Monocyte Count 1.03 10^3/uL (0.1-0.8); Absolute Neutrophil Count 9.39 10^3/uL (1.2-6.7); Basophils % 0.9; Eosinophils % 3.7; HCT 40.5 % (40.0-50.0); HGB 13.5 g/dL (13.5-17.5); Immature Grans % 0.4; Lymphocytes % 20.2; MCH 27.6 pg (27.0-33.0); MCHC 33.3 % (32.0-36.0); MCV 82.7 fL (80-95); MPV 8.7 fL (8.0-11.0); Monocytes % 7.4; Neutrophils % 67.4; Nucleated RBC 0 %; Platelet Count 437 10^3/uL (130-400); RDW 13.5 % (11.8-14.1); RDW-SD 40.9 fL; WBC 13.93 10^3/uL (4.4-10.8)
[2022-02-16 10:40] LABS: Absolute Basophil Count 0.13 10^3/uL (0.0-0.2); Absolute Eosinophil Count 0.52 10^3/uL (0.0-0.7); Absolute Lymphocyte Count 2.81 10^3/uL (1.2-3.4)
== END 2022-02-16 03:28 | disposition home or self-care (01) ==
LOC: LBO 03:27
PROVIDERS: PCP Nurse Practitioner Family; Visit Provider Psychiatry & Neurology Psychiatry
DX: F20.0 Paranoid schizophrenia (principal); Z79.899 Other long term (current) drug therapy
CPT/HCPCS: 36415; 85025

== ENCOUNTER 2022-03-16 02:41 | Outpatient (CLI) | payer MEDICAID, SELFPAY ==
[2022-03-16 10:54] LABS: Abs Immature Grans 0.06 10^3/uL (0.0-0.06); Absolute Basophil Count 0.11 10^3/uL (0.0-0.2); Absolute Eosinophil Count 0.26 10^3/uL (0.0-0.7); Absolute Lymphocyte Count 2.44 10^3/uL (1.2-3.4); Absolute Monocyte Count 0.97 10^3/uL (0.1-0.8); Absolute Neutrophil Count 6.41 10^3/uL (1.2-6.7); Basophils % 1.1; Eosinophils % 2.5; HCT 38.1 % (40.0-50.0); HGB 12.7 g/dL (13.5-17.5); Immature Grans % 0.6; Lymphocytes % 23.8; MCH 27.3 pg (27.0-33.0); MCHC 33.3 % (32.0-36.0); MCV 81.8 fL (80-95); MPV 8.6 fL (8.0-11.0); Monocytes % 9.5; Neutrophils % 62.5; Platelet Count 424 10^3/uL (130-400); RBC 4.66 10^6/uL (4.36-5.78); RDW 13.6 % (11.8-14.1); RDW-SD 40.1 fL; WBC 10.25 10^3/uL (4.4-10.8)
== END 2022-03-16 02:42 | disposition home or self-care (01) ==
LOC: LBO 02:41
PROVIDERS: PCP Nurse Practitioner Family; Visit Provider Psychiatry & Neurology Psychiatry
DX: F20.0 Paranoid schizophrenia (principal); Z79.899 Other long term (current) drug therapy
CPT/HCPCS: 36415; 85025

== ENCOUNTER 2022-04-14 15:27 | Outpatient (CLI) | payer MEDICAID, SELFPAY ==
[2022-04-14 10:17] LABS: Abs Immature Grans 0.05 10^3/uL (0.0-0.06); Absolute Basophil Count 0.08 10^3/uL (0.0-0.2); Absolute Eosinophil Count 0.15 10^3/uL (0.0-0.7); Absolute Lymphocyte Count 2.19 10^3/uL (1.2-3.4); Absolute Monocyte Count 0.74 10^3/uL (0.1-0.8); Absolute Neutrophil Count 7.58 10^3/uL (1.2-6.7); Basophils % 0.7; Eosinophils % 1.4; HCT 37.6 % (40.0-50.0); HGB 12.9 g/dL (13.5-17.5); Immature Grans % 0.5; Lymphocytes % 20.3; MCH 27.9 pg (27.0-33.0); MCHC 34.3 % (32.0-36.0); MCV 81 fL (80-95); MPV 9.1 fL (8.0-11.0); Monocytes % 6.9; Neutrophils % 70.2; Platelet Count 367 10^3/uL (130-400); RBC 4.62 10^6/uL (4.36-5.78); RDW 13.5 % (11.8-14.1); RDW-SD 39.8 fL; WBC 10.79 10^3/uL (4.4-10.8)
== END 2022-04-14 15:28 | disposition home or self-care (01) ==
LOC: LBO 15:28
PROVIDERS: PCP Nurse Practitioner Family; Visit Provider Psychiatry & Neurology Psychiatry
DX: F20.0 Paranoid schizophrenia (principal); Z79.899 Other long term (current) drug therapy
CPT/HCPCS: 36415; 85025

== ENCOUNTER 2022-05-13 02:10 | Outpatient (CLI) | payer MEDICAID, SELFPAY ==
[2022-05-13 10:18] LABS: Abs Immature Grans 0.04 10^3/uL (0.0-0.06); Absolute Basophil Count 0.07 10^3/uL (0.0-0.2); Absolute Eosinophil Count 0.21 10^3/uL (0.0-0.7); Absolute Lymphocyte Count 3.18 10^3/uL (1.2-3.4); Absolute Monocyte Count 0.78 10^3/uL (0.1-0.8); Basophils % 0.6; Eosinophils % 1.9; HCT 39.6 % (40.0-50.0); HGB 13.9 g/dL (13.5-17.5); Immature Grans % 0.4; Lymphocytes % 28.7; MCH 27.9 pg (27.0-33.0); MCHC 35.1 % (32.0-36.0); MCV 79 fL (80-95); MPV 8.4 fL (8.0-11.0); Neutrophils % 61.4; Platelet Count 411 10^3/uL (130-400); RBC 4.99 10^6/uL (4.36-5.78); RDW 13.3 % (11.8-14.1); RDW-SD 37.7 fL; WBC 11.08 10^3/uL (4.4-10.8)
== END 2022-05-13 02:11 | disposition home or self-care (01) ==
LOC: LBO 02:10
PROVIDERS: PCP Nurse Practitioner Family; Visit Provider Psychiatry & Neurology Psychiatry
DX: F20.0 Paranoid schizophrenia (principal); Z79.899 Other long term (current) drug therapy
CPT/HCPCS: 36415; 85025

== ENCOUNTER 2022-06-08 03:28 | Outpatient (CLI) | payer MEDICAID, SELFPAY ==
[2022-06-08 12:01] LABS: Abs Immature Grans 0.08 10^3/uL (0.0-0.06); Absolute Eosinophil Count 0.38 10^3/uL (0.0-0.7); Absolute Monocyte Count 1.08 10^3/uL (0.1-0.8); Absolute Neutrophil Count 7.13 10^3/uL (1.2-6.7); Basophils % 0.8; Eosinophils % 3.2; HCT 37.6 % (40.0-50.0); Immature Grans % 0.7; Lymphocytes % 26.1; MCH 27.6 pg (27.0-33.0); MCHC 34.6 % (32.0-36.0); MCV 80 fL (80-95); MPV 8.6 fL (8.0-11.0); Monocytes % 9.1; Neutrophils % 60.1; Platelet Count 364 10^3/uL (130-400); RBC 4.71 10^6/uL (4.36-5.78); RDW 13.2 % (11.8-14.1); WBC 11.86 10^3/uL (4.4-10.8)
[2022-06-08 12:02] LABS: Absolute Basophil Count 0.09 10^3/uL (0.0-0.2)
== END 2022-06-08 03:29 | disposition home or self-care (01) ==
LOC: LBO 03:28
PROVIDERS: PCP Nurse Practitioner Family; Visit Provider Psychiatry & Neurology Psychiatry
DX: F20.0 Paranoid schizophrenia (principal); Z79.899 Other long term (current) drug therapy
CPT/HCPCS: 36415; 85025

== ENCOUNTER 2022-07-16 03:43 | Outpatient (CLI) | payer MEDICAID, SELFPAY ==
[2022-07-16 12:26] LABS: Abs Immature Grans 0.07 10^3/uL (0.0-0.06); Absolute Basophil Count 0.07 10^3/uL (0.0-0.2); Absolute Eosinophil Count 0.16 10^3/uL (0.0-0.7); Absolute Lymphocyte Count 2.75 10^3/uL (1.2-3.4); Absolute Monocyte Count 1.01 10^3/uL (0.1-0.8); Absolute Neutrophil Count 7.98 10^3/uL (1.2-6.7); Basophils % 0.6; Eosinophils % 1.3; HGB 13.7 g/dL (13.5-17.5); Immature Grans % 0.6; Lymphocytes % 22.8; MCH 27.6 pg (27.0-33.0); MCHC 34.3 % (32.0-36.0); MCV 81 fL (80-95); MPV 8.6 fL (8.0-11.0); Monocytes % 8.4; Neutrophils % 66.3; Platelet Count 401 10^3/uL (130-400); RBC 4.96 10^6/uL (4.36-5.78); RDW 13.6 % (11.8-14.1); RDW-SD 39.6 fL; WBC 12.04 10^3/uL (4.4-10.8)
== END 2022-07-16 03:44 | disposition home or self-care (01) ==
LOC: LBO 03:43
PROVIDERS: PCP Nurse Practitioner Family; Visit Provider Psychiatry & Neurology Psychiatry
DX: F20.0 Paranoid schizophrenia (principal); Z79.899 Other long term (current) drug therapy
CPT/HCPCS: 36415; 85025

== ENCOUNTER 2022-08-04 02:20 | Outpatient (CLI) | payer MEDICAID, SELFPAY ==
[2022-08-04 11:07] LABS: Abs Immature Grans 0.04 10^3/uL (0.0-0.06); Absolute Basophil Count 0.06 10^3/uL (0.0-0.2); Absolute Eosinophil Count 0.31 10^3/uL (0.0-0.7); Absolute Lymphocyte Count 3.03 10^3/uL (1.2-3.4); Absolute Monocyte Count 0.94 10^3/uL (0.1-0.8); Basophils % 0.5; Eosinophils % 2.7; HGB 13.4 g/dL (13.5-17.5); Immature Grans % 0.4; Lymphocytes % 26.5; MCH 27.7 pg (27.0-33.0); MCHC 34.4 % (32.0-36.0); MCV 81 fL (80-95); MPV 8.5 fL (8.0-11.0); Monocytes % 8.2; Neutrophils % 61.7; Platelet Count 368 10^3/uL (130-400); RBC 4.84 10^6/uL (4.36-5.78); RDW 13.5 % (11.8-14.1); RDW-SD 39.3 fL; WBC 11.42 10^3/uL (4.4-10.8)
[2022-08-04 11:08] LABS: Absolute Neutrophil Count 7.05 10^3/uL (1.2-6.7)
== END 2022-08-04 02:21 | disposition home or self-care (01) ==
LOC: LBO 02:20
PROVIDERS: PCP Nurse Practitioner Family; Visit Provider Psychiatry & Neurology Psychiatry
DX: F20.0 Paranoid schizophrenia (principal); Z79.899 Other long term (current) drug therapy
CPT/HCPCS: 36415; 85025

== ENCOUNTER 2022-08-31 04:06 | Outpatient (CLI) | payer MEDICAID, SELFPAY ==
[2022-08-31 11:56] LABS: Abs Immature Grans 0.06 10^3/uL (0.0-0.06); Absolute Basophil Count 0.09 10^3/uL (0.0-0.2); Absolute Eosinophil Count 0.16 10^3/uL (0.0-0.7); Absolute Lymphocyte Count 2.12 10^3/uL (1.2-3.4); Absolute Monocyte Count 1.08 10^3/uL (0.1-0.8); Basophils % 0.7; Eosinophils % 1.2; HCT 39.3 % (40.0-50.0); HGB 13.3 g/dL (13.5-17.5); Immature Grans % 0.5; MCH 27.6 pg (27.0-33.0); MCHC 33.8 % (32.0-36.0); MCV 82 fL (80-95); MPV 8.6 fL (8.0-11.0); Monocytes % 8.2; Neutrophils % 73.4; Platelet Count 401 10^3/uL (130-400); RBC 4.82 10^6/uL (4.36-5.78); RDW 13.1 % (11.8-14.1); RDW-SD 38.7 fL; WBC 13.23 10^3/uL (4.4-10.8)
[2022-08-31 11:57] LABS: Absolute Neutrophil Count 9.71 10^3/uL (1.2-6.7)
== END 2022-08-31 04:07 | disposition home or self-care (01) ==
LOC: LBO 04:06
PROVIDERS: PCP Nurse Practitioner Family; Visit Provider Psychiatry & Neurology Psychiatry
DX: F20.0 Paranoid schizophrenia (principal); Z79.899 Other long term (current) drug therapy
CPT/HCPCS: 36415; 85025

== ENCOUNTER 2022-09-28 02:45 | Outpatient (CLI) | payer MEDICAID, SELFPAY ==
[2022-09-28 11:36] LABS: Abs Immature Grans 0.03 10^3/uL (0.0-0.06); Absolute Basophil Count 0.09 10^3/uL (0.0-0.2); Absolute Eosinophil Count 0.21 10^3/uL (0.0-0.7); Absolute Lymphocyte Count 2.71 10^3/uL (1.2-3.4); Absolute Monocyte Count 0.74 10^3/uL (0.1-0.8); Absolute Neutrophil Count 6.29 10^3/uL (1.2-6.7); Basophils % 0.9; Eosinophils % 2.1; HCT 38.7 % (40.0-50.0); HGB 13.3 g/dL (13.5-17.5); Immature Grans % 0.3; Lymphocytes % 26.9; MCH 27.7 pg (27.0-33.0); MCHC 34.4 % (32.0-36.0); MCV 81 fL (80-95); MPV 8.4 fL (8.0-11.0); Monocytes % 7.3; Neutrophils % 62.5; Platelet Count 420 10^3/uL (130-400); RBC 4.81 10^6/uL (4.36-5.78); RDW 13.4 % (11.8-14.1); RDW-SD 39.3 fL; WBC 10.07 10^3/uL (4.4-10.8)
== END 2022-09-28 02:46 | disposition home or self-care (01) ==
LOC: LBO 02:45
PROVIDERS: PCP Nurse Practitioner Family; Visit Provider Psychiatry & Neurology Psychiatry
DX: F20.0 Paranoid schizophrenia (principal); Z79.899 Other long term (current) drug therapy
CPT/HCPCS: 36415; 85025

== ENCOUNTER 2022-10-12 10:14 | Outpatient (REF) | payer MEDICAID, SELFPAY ==
[2022-10-12 17:20] LABS: Hemoglobin A1C 5.8 % (<5.7)
[2022-10-12 17:27] LABS: BUN 16 mg/dL (7-18); Calcium 9.1 mg/dL (8.5-10.1); Calculated LDL 48 mg/dL (<100); Chloride 108 mmol/L (98-107); Cholesterol 107 mg/dL (<200); Estimated GFR 80.47 (mL/min/1.73m2); Glucose 89 mg/dL (74-106); HDL Cholesterol 36 mg/dL (40-60); Sodium 146 mmol/L (136-145); Triglyceride 117 mg/dL (<150)
== END 2022-10-12 10:15 | disposition home or self-care (01) ==
LOC: NCHCN 10:14
PROVIDERS: PCP Nurse Practitioner Family; Visit Provider Nurse Practitioner Family
DX: I10 Essential (primary) hypertension (principal); K31.9 Disease of stomach and duodenum, unspecified; R73.09 Other abnormal glucose; R79.89 Other specified abnormal findings of blood chemistry; J44.9 Chronic obstructive pulmonary disease, unspecified
CPT/HCPCS: 80048; 80061; 83036

== ENCOUNTER 2022-10-26 03:11 | Outpatient (CLI) | payer MEDICAID, SELFPAY ==
[2022-10-26 11:27] LABS: Abs Immature Grans 0.13 10^3/uL (0.0-0.06); Absolute Eosinophil Count 0.17 10^3/uL (0.0-0.7); Absolute Monocyte Count 0.86 10^3/uL (0.1-0.8); Absolute Neutrophil Count 8.09 10^3/uL (1.2-6.7); Basophils % 0.6; Eosinophils % 1.4; HCT 36.7 % (40.0-50.0); HGB 12.3 g/dL (13.5-17.5); Immature Grans % 1.1; Lymphocytes % 24.3; MCH 27.1 pg (27.0-33.0); MCHC 33.5 % (32.0-36.0); MCV 81 fL (80-95); MPV 8.1 fL (8.0-11.0); Neutrophils % 65.6; Platelet Count 473 10^3/uL (130-400); RBC 4.54 10^6/uL (4.36-5.78); RDW 12.8 % (11.8-14.1); RDW-SD 37.4 fL; WBC 12.33 10^3/uL (4.4-10.8)
[2022-10-26 11:28] LABS: Absolute Basophil Count 0.07 10^3/uL (0.0-0.2)
== END 2022-10-26 03:12 | disposition home or self-care (01) ==
LOC: LBO 03:11
PROVIDERS: PCP Nurse Practitioner Family; Visit Provider Psychiatry & Neurology Psychiatry
DX: F20.0 Paranoid schizophrenia (principal); Z79.899 Other long term (current) drug therapy
CPT/HCPCS: 36415; 85025

== ENCOUNTER 2022-11-24 03:49 | Outpatient (CLI) | payer MEDICAID, SELFPAY ==
[2022-11-24 12:37] LABS: Abs Immature Grans 0.08 10^3/uL (0.0-0.06); Absolute Eosinophil Count 0.05 10^3/uL (0.0-0.7); Absolute Lymphocyte Count 3.17 10^3/uL (1.2-3.4); Absolute Monocyte Count 1.07 10^3/uL (0.1-0.8); Absolute Neutrophil Count 11.98 10^3/uL (1.2-6.7); Basophils % 0.5; Eosinophils % 0.3; HCT 38.5 % (40.0-50.0); HGB 12.9 g/dL (13.5-17.5); Immature Grans % 0.5; Lymphocytes % 19.3; MCH 27.1 pg (27.0-33.0); MCHC 33.5 % (32.0-36.0); MCV 81 fL (80-95); MPV 8.4 fL (8.0-11.0); Monocytes % 6.5; Neutrophils % 72.9; Platelet Count 427 10^3/uL (130-400); RBC 4.76 10^6/uL (4.36-5.78); RDW 13.5 % (11.8-14.1); RDW-SD 39.8 fL; WBC 16.44 10^3/uL (4.4-10.8)
[2022-11-24 12:38] LABS: Absolute Basophil Count 0.08 10^3/uL (0.0-0.2)
== END 2022-11-24 03:50 | disposition home or self-care (01) ==
LOC: LBO 03:49
PROVIDERS: PCP Nurse Practitioner Family; Visit Provider Psychiatry & Neurology Psychiatry
DX: Z79.899 Other long term (current) drug therapy (principal)
CPT/HCPCS: 36415; 85025

== ENCOUNTER 2022-12-04 01:22 | Outpatient (CLI) | payer MEDICAID, SELFPAY ==
--- NOTE | 2022-12-04 10:30 | DI.RAD_ITS ---
Exam(s) XR LUMBAR SPINE COMPLETE EXAM: XR LUMBAR SPINE COMPLETE CLINICAL HISTORY: CHRONIC LPB, M54.99, WORSENING IN A SMOKER. TECHNIQUE: 2D digital imaging was performed. Five views. COMPARISON: No exams were available for comparison FINDINGS: BONES: No fracture or destructive lesion. Vertebral body heights are maintained. Small endplate oste ophytes. Mild facet hypertrophy identified. DISKS: Intervertebral disc spaces are maintained. Mild Schmorl's nodes. ALIGNMENT: Lumbar spinal alignment is within normal limits. SOFT TISSUE: Aorta calcified. Normal diameter. Large quantity of stool. IMPRESSION: Mild degenerative changes. DATA REPOSITORY: RADIATION DOSE DELIVERED:
== END 2022-12-04 01:42 ==
LOC: DI 01:22
PROVIDERS: PCP Nurse Practitioner Family; Visit Provider Nurse Practitioner Family
DX: M54.59 Other low back pain (principal); G89.29 Other chronic pain; F17.210 Nicotine dependence, cigarettes, uncomplicated; M47.816 Spondylosis without myelopathy or radiculopathy, lumbar region
CPT/HCPCS: 72110

== ENCOUNTER 2022-12-24 02:34 | Outpatient (CLI) | payer MEDICAID, SELFPAY ==
[2022-12-24 12:21] LABS: Abs Immature Grans 0.08 10^3/uL (0.0-0.06); Absolute Basophil Count 0.05 10^3/uL (0.0-0.2); Absolute Eosinophil Count 0.08 10^3/uL (0.0-0.7); Absolute Monocyte Count 1.04 10^3/uL (0.1-0.8); Absolute Neutrophil Count 7.69 10^3/uL (1.2-6.7); Basophils % 0.5; Eosinophils % 0.7; HGB 11.9 g/dL (13.5-17.5); Immature Grans % 0.7; Lymphocytes % 16.8; MCH 26.4 pg (27.0-33.0); MCV 78 fL (80-95); MPV 7.9 fL (8.0-11.0); Monocytes % 9.7; Neutrophils % 71.6; Platelet Count 573 10^3/uL (130-400); RDW 13.2 % (11.8-14.1); RDW-SD 37.7 fL; WBC 10.74 10^3/uL (4.4-10.8)
== END 2022-12-24 02:35 | disposition home or self-care (01) ==
LOC: LBO 02:34
PROVIDERS: PCP Nurse Practitioner Family; Visit Provider Psychiatry & Neurology Psychiatry
DX: F20.0 Paranoid schizophrenia (principal); Z79.899 Other long term (current) drug therapy
CPT/HCPCS: 36415; 85025

== ENCOUNTER 2023-01-15 01:15 | Outpatient (CLI) | payer MEDICAID, SELFPAY ==
[2023-01-15 12:26] LABS: Abs Immature Grans 0.05 10^3/uL (0.0-0.06); Absolute Basophil Count 0.08 10^3/uL (0.0-0.2); Absolute Eosinophil Count 0.16 10^3/uL (0.0-0.7); Absolute Lymphocyte Count 3.11 10^3/uL (1.2-3.4); Absolute Monocyte Count 1.56 10^3/uL (0.1-0.8); Absolute Neutrophil Count 8.27 10^3/uL (1.2-6.7); Basophils % 0.6; Eosinophils % 1.2; HCT 35.5 % (40.0-50.0); HGB 11.9 g/dL (13.5-17.5); Immature Grans % 0.4; Lymphocytes % 23.5; MCH 26.7 pg (27.0-33.0); MCHC 33.5 % (32.0-36.0); MCV 80 fL (80-95); MPV 8.7 fL (8.0-11.0); Monocytes % 11.8; Neutrophils % 62.5; Platelet Count 395 10^3/uL (130-400); RBC 4.46 10^6/uL (4.36-5.78); RDW 14.4 % (11.8-14.1); RDW-SD 41.7 fL; WBC 13.23 10^3/uL (4.4-10.8)
[2023-01-15 12:43] LABS: Diff Comment Diff Reviewed; RBC Morphology Normal
== END 2023-01-15 01:16 | disposition home or self-care (01) ==
LOC: LBO 01:15
PROVIDERS: PCP Nurse Practitioner Family; Visit Provider Psychiatry & Neurology Psychiatry
DX: Z79.899 Other long term (current) drug therapy (principal)
CPT/HCPCS: 36415; 85025

== ENCOUNTER 2023-02-11 02:03 | Outpatient (CLI) | payer MEDICAID, SELFPAY ==
[2023-02-11 10:29] LABS: Abs Immature Grans 0.04 10^3/uL (0.0-0.06); Absolute Basophil Count 0.08 10^3/uL (0.0-0.2); Absolute Eosinophil Count 0.23 10^3/uL (0.0-0.7); Absolute Lymphocyte Count 2.56 10^3/uL (1.2-3.4); Absolute Monocyte Count 0.79 10^3/uL (0.1-0.8); Absolute Neutrophil Count 7.27 10^3/uL (1.2-6.7); Basophils % 0.7; Eosinophils % 2.1; HCT 38.9 % (40.0-50.0); HGB 12.8 g/dL (13.5-17.5); Immature Grans % 0.4; Lymphocytes % 23.3; MCH 25.9 pg (27.0-33.0); MCHC 32.9 % (32.0-36.0); MCV 79 fL (80-95); MPV 8.4 fL (8.0-11.0); Monocytes % 7.2; Neutrophils % 66.3; Platelet Count 527 10^3/uL (130-400); RBC 4.95 10^6/uL (4.36-5.78); RDW 14.5 % (11.8-14.1); WBC 10.97 10^3/uL (4.4-10.8)
== END 2023-02-11 02:04 | disposition home or self-care (01) ==
LOC: LBO 02:03
PROVIDERS: PCP Nurse Practitioner Family; Visit Provider Psychiatry & Neurology Psychiatry
DX: F20.0 Paranoid schizophrenia (principal); Z79.899 Other long term (current) drug therapy
CPT/HCPCS: 36415; 85025

== ENCOUNTER 2023-03-10 02:53 | Outpatient (CLI) | payer MEDICAID, SELFPAY ==
[2023-03-10 10:54] LABS: Abs Immature Grans 0.06 10^3/uL (0.0-0.06); Absolute Basophil Count 0.05 10^3/uL (0.0-0.2); Absolute Eosinophil Count 0.24 10^3/uL (0.0-0.7); Absolute Monocyte Count 0.84 10^3/uL (0.1-0.8); Absolute Neutrophil Count 6.79 10^3/uL (1.2-6.7); Basophils % 0.5; Eosinophils % 2.3; HGB 12.6 g/dL (13.5-17.5); Immature Grans % 0.6; Lymphocytes % 23.9; MCH 25.9 pg (27.0-33.0); MCHC 34.1 % (32.0-36.0); MCV 76 fL (80-95); Neutrophils % 64.7; Platelet Count 390 10^3/uL (130-400); RBC 4.87 10^6/uL (4.36-5.78); RDW 14.6 % (11.8-14.1); RDW-SD 39.9 fL; WBC 10.48 10^3/uL (4.4-10.8)
== END 2023-03-10 02:54 | disposition home or self-care (01) ==
LOC: LBO 02:53
PROVIDERS: PCP Nurse Practitioner Family; Visit Provider Psychiatry & Neurology Psychiatry
DX: Z79.899 Other long term (current) drug therapy (principal); F20.0 Paranoid schizophrenia
CPT/HCPCS: 36415; 85025

== ENCOUNTER 2023-04-05 03:00 | Outpatient (CLI) | payer MEDICAID, SELFPAY ==
[2023-04-05 09:24] LABS: Abs Immature Grans 0.07 10^3/uL (0.0-0.06); Absolute Eosinophil Count 0.24 10^3/uL (0.0-0.7); Absolute Monocyte Count 1.18 10^3/uL (0.1-0.8); Basophils % 0.7; Eosinophils % 1.4; HCT 39.5 % (40.0-50.0); HGB 13.1 g/dL (13.5-17.5); Immature Grans % 0.4; Lymphocytes % 17.4; MCH 25.5 pg (27.0-33.0); MCHC 33.2 % (32.0-36.0); MCV 77 fL (80-95); MPV 8.3 fL (8.0-11.0); Neutrophils % 73.1; Platelet Count 426 10^3/uL (130-400); RBC 5.13 10^6/uL (4.36-5.78); RDW 15.2 % (11.8-14.1); RDW-SD 42.5 fL; WBC 16.87 10^3/uL (4.4-10.8)
[2023-04-05 09:39] LABS: Absolute Basophil Count 0.12 10^3/uL (0.0-0.2); Absolute Lymphocyte Count 2.94 10^3/uL (1.2-3.4); Absolute Neutrophil Count 12.33 10^3/uL (1.2-6.7)
== END 2023-04-05 03:01 | disposition home or self-care (01) ==
LOC: LBO 03:00
PROVIDERS: PCP Nurse Practitioner Family; Visit Provider Psychiatry & Neurology Psychiatry
DX: F20.0 Paranoid schizophrenia (principal); Z79.899 Other long term (current) drug therapy
CPT/HCPCS: 36415; 85025

== ENCOUNTER 2023-05-04 03:14 | Outpatient (CLI) | payer MEDICAID, SELFPAY ==
[2023-05-04 10:10] LABS: Abs Immature Grans 0.04 10^3/uL (0.0-0.06); Absolute Basophil Count 0.08 10^3/uL (0.0-0.2); Absolute Eosinophil Count 0.14 10^3/uL (0.0-0.7); Absolute Lymphocyte Count 2.16 10^3/uL (1.2-3.4); Absolute Monocyte Count 1.05 10^3/uL (0.1-0.8); Absolute Neutrophil Count 7.22 10^3/uL (1.2-6.7); Basophils % 0.7; Eosinophils % 1.3; HCT 36.3 % (40.0-50.0); HGB 12.3 g/dL (13.5-17.5); Immature Grans % 0.4; Lymphocytes % 20.2; MCH 25.6 pg (27.0-33.0); MCHC 33.9 % (32.0-36.0); MCV 76 fL (80-95); Monocytes % 9.8; Neutrophils % 67.6; Platelet Count 371 10^3/uL (130-400); RDW 14.9 % (11.8-14.1); RDW-SD 40.9 fL; WBC 10.69 10^3/uL (4.4-10.8)
== END 2023-05-04 03:15 | disposition home or self-care (01) ==
LOC: LBO 03:14
PROVIDERS: PCP Nurse Practitioner Family; Visit Provider Counselor Addiction (Substance Use Disorder)
DX: F20.9 Schizophrenia, unspecified (principal); Z79.899 Other long term (current) drug therapy
CPT/HCPCS: 36415; 85025

== ENCOUNTER 2023-06-02 02:41 | Outpatient (CLI) | payer MEDICAID, SELFPAY ==
[2023-06-02 11:02] LABS: Abs Immature Grans 0.05 10^3/uL (0.0-0.06); Absolute Basophil Count 0.09 10^3/uL (0.0-0.2); Absolute Eosinophil Count 0.17 10^3/uL (0.0-0.7); Absolute Lymphocyte Count 2.15 10^3/uL (1.2-3.4); Absolute Monocyte Count 0.95 10^3/uL (0.1-0.8); Basophils % 0.8; Eosinophils % 1.5; HCT 36.3 % (40.0-50.0); HGB 12.2 g/dL (13.5-17.5); Immature Grans % 0.4; Lymphocytes % 19.2; MCHC 33.6 % (32.0-36.0); MCV 77 fL (80-95); MPV 8.9 fL (8.0-11.0); Monocytes % 8.5; Neutrophils % 69.6; Platelet Count 410 10^3/uL (130-400); RBC 4.69 10^6/uL (4.36-5.78); RDW 15.3 % (11.8-14.1); RDW-SD 43.2 fL; WBC 11.18 10^3/uL (4.4-10.8)
[2023-06-02 11:09] LABS: Absolute Neutrophil Count 7.78 10^3/uL (1.2-6.7)
== END 2023-06-02 02:42 | disposition home or self-care (01) ==
PROVIDERS: PCP Nurse Practitioner Family; Referring Provider Counselor Addiction (Substance Use Disorder); Visit Provider Counselor Addiction (Substance Use Disorder)
DX: F20.9 Schizophrenia, unspecified (principal); Z79.899 Other long term (current) drug therapy
CPT/HCPCS: 36415; 85025

== ENCOUNTER 2023-07-01 14:57 | Outpatient (CLI) | payer MEDICAID, SELFPAY ==
[2023-07-01 10:47] LABS: Abs Immature Grans 0.03 10^3/uL (0.0-0.06); Absolute Basophil Count 0.08 10^3/uL (0.0-0.2); Absolute Lymphocyte Count 2.54 10^3/uL (1.2-3.4); Absolute Monocyte Count 0.85 10^3/uL (0.1-0.8); Absolute Neutrophil Count 7.19 10^3/uL (1.2-6.7); Basophils % 0.7; Eosinophils % 0.9; HCT 39.6 % (40.0-50.0); HGB 13.5 g/dL (13.5-17.5); Immature Grans % 0.3; Lymphocytes % 23.5; MCHC 34.1 % (32.0-36.0); MCV 76 fL (80-95); MPV 8.3 fL (8.0-11.0); Monocytes % 7.9; Neutrophils % 66.7; Platelet Count 442 10^3/uL (130-400); RBC 5.19 10^6/uL (4.36-5.78); RDW 14.8 % (11.8-14.1); RDW-SD 40.7 fL; WBC 10.79 10^3/uL (4.4-10.8)
== END 2023-07-01 14:58 | disposition home or self-care (01) ==
LOC: LBO 15:00
PROVIDERS: PCP Nurse Practitioner Family; Visit Provider Counselor Addiction (Substance Use Disorder)
DX: Z79.899 Other long term (current) drug therapy (principal); F20.9 Schizophrenia, unspecified
CPT/HCPCS: 36415; 85025

== ENCOUNTER 2023-07-28 01:54 | Outpatient (CLI) | payer MEDICAID, SELFPAY ==
[2023-07-28 14:42] LABS: Absolute Eosinophil Count 0.18 10^3/uL (0.0-0.7); Absolute Monocyte Count 1.06 10^3/uL (0.1-0.8); Absolute Neutrophil Count 7.86 10^3/uL (1.2-6.7); Basophils % 0.7; Eosinophils % 1.5; HCT 34.3 % (40.0-50.0); HGB 12.1 g/dL (13.5-17.5); Immature Grans % 0.8; Lymphocytes % 24.4; MCHC 35.3 % (32.0-36.0); MCV 77 fL (80-95); MPV 8.3 fL (8.0-11.0); Monocytes % 8.6; Platelet Count 344 10^3/uL (130-400); RBC 4.48 10^6/uL (4.36-5.78); RDW 14.6 % (11.8-14.1); RDW-SD 40.4 fL; WBC 12.28 10^3/uL (4.4-10.8)
[2023-07-28 14:45] LABS: Absolute Basophil Count 0.09 10^3/uL (0.0-0.2)
[2023-07-28 15:29] LABS: Hemoglobin A1C 6.1 % (<5.7)
[2023-07-28 15:32] LABS: Ferritin 17 ng/mL (26-388)
[2023-07-28 15:46] LABS: ALT 18 U/L (16-63); AST 13 U/L (15-37); Albumin 3.9 g/dL (3.4-5.0); Alkaline Phosphatase 85 U/L (46-116); Anion Gap 11.3 mmol/L (3-11); BUN 11 mg/dL (7-18); Bilirubin, Total 0.3 mg/dL (0.2-1.0); CO2 25.7 mmol/L (21.0-32.0); CREATININE 1.2 mg/dL (0.70-1.30); Calcium 9.1 mg/dL (8.5-10.1); Calculated LDL 34 mg/dL (<100); Chloride 103 mmol/L (98-107); Cholesterol 112 mg/dL (<200); Estimated GFR 64.25 (mL/min/1.73m2); Glucose 95 mg/dL (74-106); HDL Cholesterol 38 mg/dL (40-60); Potassium 4.5 mmol/L (3.5-5.1); Sodium 140 mmol/L (136-145); TSH (W/Ref FT4) 3.68 uIU/mL (0.36-3.74); Total Protein 7.1 g/dL (6.4-8.2); Triglyceride 201 mg/dL (<150); Vitamin B12 359 pg/mL (193-986)
[2023-07-28 18:17] LABS: Vitamin D 25 Total 44.4 ng/mL (30-100)
== END 2023-07-28 01:55 | disposition home or self-care (01) ==
LOC: LBO 01:54
PROVIDERS: PCP Nurse Practitioner Family; Visit Provider Counselor Addiction (Substance Use Disorder)
DX: F20.9 Schizophrenia, unspecified (principal); Z79.899 Other long term (current) drug therapy; R79.89 Other specified abnormal findings of blood chemistry
CPT/HCPCS: 80053; 80061; 82306; 82607; 82728; 83036; 84443; 85025

== ENCOUNTER 2023-08-23 02:15 | Outpatient (CLI) | payer MEDICAID, SELFPAY ==
[2023-08-23 11:04] LABS: Abs Immature Grans 0.06 10^3/uL (0.0-0.06); Absolute Basophil Count 0.07 10^3/uL (0.0-0.2); Absolute Eosinophil Count 0.14 10^3/uL (0.0-0.7); Absolute Lymphocyte Count 2.64 10^3/uL (1.2-3.4); Absolute Monocyte Count 0.86 10^3/uL (0.1-0.8); Absolute Neutrophil Count 5.43 10^3/uL (1.2-6.7); Basophils % 0.8; Eosinophils % 1.5; HCT 40.4 % (40.0-50.0); HGB 13.8 g/dL (13.5-17.5); Immature Grans % 0.7; Lymphocytes % 28.7; MCH 26.7 pg (27.0-33.0); MCHC 34.2 % (32.0-36.0); MCV 78 fL (80-95); MPV 8.4 fL (8.0-11.0); Monocytes % 9.3; Platelet Count 405 10^3/uL (130-400); RBC 5.17 10^6/uL (4.36-5.78); RDW 15.5 % (11.8-14.1); RDW-SD 43.5 fL
== END 2023-08-23 02:16 | disposition home or self-care (01) ==
LOC: LBO 02:15
PROVIDERS: PCP Nurse Practitioner Family; Visit Provider Counselor Addiction (Substance Use Disorder)
DX: F20.9 Schizophrenia, unspecified (principal); Z79.899 Other long term (current) drug therapy
CPT/HCPCS: 36415; 85025

== ENCOUNTER 2023-09-21 02:49 | Outpatient (CLI) | payer MEDICAID, SELFPAY ==
[2023-09-21 10:11] LABS: Abs Immature Grans 0.09 10^3/uL (0.0-0.06); Absolute Eosinophil Count 0.27 10^3/uL (0.0-0.7); Absolute Lymphocyte Count 2.43 10^3/uL (1.2-3.4); Absolute Monocyte Count 0.93 10^3/uL (0.1-0.8); Absolute Neutrophil Count 6.02 10^3/uL (1.2-6.7); Eosinophils % 2.7; HCT 40.9 % (40.0-50.0); HGB 13.5 g/dL (13.5-17.5); Immature Grans % 0.9; Lymphocytes % 24.7; MCH 26.3 pg (27.0-33.0); MCV 80 fL (80-95); MPV 8.6 fL (8.0-11.0); Monocytes % 9.5; Neutrophils % 61.2; Platelet Count 327 10^3/uL (130-400); RBC 5.14 10^6/uL (4.36-5.78); RDW 15.2 % (11.8-14.1); RDW-SD 43.8 fL; WBC 9.84 10^3/uL (4.4-10.8)
== END 2023-09-21 02:50 | disposition home or self-care (01) ==
LOC: LBO 02:49
PROVIDERS: PCP Nurse Practitioner Family; Visit Provider Counselor Addiction (Substance Use Disorder)
DX: Z79.899 Other long term (current) drug therapy (principal); F20.9 Schizophrenia, unspecified
CPT/HCPCS: 36415; 85025

== ENCOUNTER 2023-10-20 03:55 | Outpatient (CLI) | payer MEDICAID, SELFPAY ==
[2023-10-20 11:06] LABS: Abs Immature Grans 0.08 10^3/uL (0.0-0.06); Absolute Basophil Count 0.05 10^3/uL (0.0-0.2); Absolute Eosinophil Count 0.29 10^3/uL (0.0-0.7); Absolute Lymphocyte Count 2.36 10^3/uL (1.2-3.4); Absolute Monocyte Count 0.68 10^3/uL (0.1-0.8); Absolute Neutrophil Count 6.19 10^3/uL (1.2-6.7); Basophils % 0.5; HCT 38.8 % (40.0-50.0); HGB 13.2 g/dL (13.5-17.5); Immature Grans % 0.8; Lymphocytes % 24.5; MCH 27.2 pg (27.0-33.0); MCV 80 fL (80-95); MPV 8.7 fL (8.0-11.0); Neutrophils % 64.2; Platelet Count 354 10^3/uL (130-400); RBC 4.86 10^6/uL (4.36-5.78); RDW 14.3 % (11.8-14.1); RDW-SD 41.7 fL; WBC 9.65 10^3/uL (4.4-10.8)
== END 2023-10-20 03:56 | disposition home or self-care (01) ==
LOC: LBO 03:56
PROVIDERS: PCP Nurse Practitioner Family; Visit Provider Counselor Addiction (Substance Use Disorder)
DX: F20.9 Schizophrenia, unspecified (principal); Z79.899 Other long term (current) drug therapy
CPT/HCPCS: 36415; 85025

== ENCOUNTER 2023-11-15 02:54 | Outpatient (CLI) | payer MEDICAID, SELFPAY ==
[2023-11-15 10:29] LABS: Abs Immature Grans 0.05 10^3/uL (0.0-0.06); Absolute Eosinophil Count 0.24 10^3/uL (0.0-0.7); Absolute Lymphocyte Count 2.28 10^3/uL (1.2-3.4); Basophils % 0.8; Eosinophils % 1.9; HCT 42.4 % (40.0-50.0); HGB 14.4 g/dL (13.5-17.5); Immature Grans % 0.4; MCH 27.7 pg (27.0-33.0); MCV 82 fL (80-95); MPV 8.8 fL (8.0-11.0); Monocytes % 9.9; Platelet Count 348 10^3/uL (130-400); RDW 14.3 % (11.8-14.1); RDW-SD 41.8 fL; WBC 12.69 10^3/uL (4.4-10.8)
[2023-11-15 10:31] LABS: Absolute Monocyte Count 1.26 10^3/uL (0.1-0.8); Absolute Neutrophil Count 8.76 10^3/uL (1.2-6.7)
== END 2023-11-15 02:55 | disposition home or self-care (01) ==
LOC: LBO 02:54
PROVIDERS: PCP Nurse Practitioner Family; Visit Provider Counselor Addiction (Substance Use Disorder)
DX: F20.9 Schizophrenia, unspecified (principal); Z79.899 Other long term (current) drug therapy
CPT/HCPCS: 36415; 85025

== ENCOUNTER 2023-12-20 04:41 | Outpatient (CLI) | payer MEDICAID, SELFPAY ==
[2023-12-20 10:12] LABS: Abs Immature Grans 0.06 10^3/uL (0.0-0.06); Absolute Basophil Count 0.09 10^3/uL (0.0-0.2); Absolute Monocyte Count 0.94 10^3/uL (0.1-0.8); Absolute Neutrophil Count 6.84 10^3/uL (1.2-6.7); Basophils % 0.9; Eosinophils % 1.9; HCT 42.1 % (40.0-50.0); HGB 14.4 g/dL (13.5-17.5); Immature Grans % 0.6; Lymphocytes % 22.8; MCH 27.9 pg (27.0-33.0); MCHC 34.2 % (32.0-36.0); MCV 82 fL (80-95); MPV 8.6 fL (8.0-11.0); Monocytes % 8.9; Neutrophils % 64.9; Platelet Count 365 10^3/uL (130-400); RBC 5.16 10^6/uL (4.36-5.78); RDW 13.7 % (11.8-14.1); RDW-SD 40.2 fL; WBC 10.53 10^3/uL (4.4-10.8)
== END 2023-12-20 04:42 | disposition home or self-care (01) ==
LOC: LBO 04:41
PROVIDERS: PCP Nurse Practitioner Family; Visit Provider Counselor Addiction (Substance Use Disorder)
DX: F20.89 Other schizophrenia (principal); Z79.899 Other long term (current) drug therapy
CPT/HCPCS: 36415; 85025

== ENCOUNTER 2024-01-17 04:52 | Outpatient (CLI) | payer MEDICAID, SELFPAY ==
[2024-01-17 13:39] LABS: Abs Immature Grans 0.11 10^3/uL (0.0-0.06); Absolute Basophil Count 0.08 10^3/uL (0.0-0.2); Absolute Eosinophil Count 0.24 10^3/uL (0.0-0.7); Absolute Monocyte Count 0.95 10^3/uL (0.1-0.8); Absolute Neutrophil Count 7.61 10^3/uL (1.2-6.7); Basophils % 0.7; Eosinophils % 2.1; HCT 38.6 % (40.0-50.0); HGB 13.5 g/dL (13.5-17.5); Immature Grans % 0.9; Lymphocytes % 22.4; MCH 28.5 pg (27.0-33.0); MCV 81 fL (80-95); Monocytes % 8.2; Neutrophils % 65.7; Platelet Count 290 10^3/uL (130-400); RBC 4.74 10^6/uL (4.36-5.78); RDW 13.3 % (11.8-14.1); RDW-SD 39.2 fL; WBC 11.59 10^3/uL (4.4-10.8)
== END 2024-01-17 04:53 | disposition home or self-care (01) ==
LOC: LBO 04:52
PROVIDERS: PCP Nurse Practitioner Family; Visit Provider Counselor Addiction (Substance Use Disorder)
DX: F20.9 Schizophrenia, unspecified (principal); Z79.899 Other long term (current) drug therapy
CPT/HCPCS: 36415; 85025

== ENCOUNTER 2024-02-08 12:56 | Outpatient (CLI) | payer MEDICAID, SELFPAY ==
[2024-02-08 11:41] LABS: Abs Immature Grans 0.04 10^3/uL (0.0-0.06); Absolute Basophil Count 0.08 10^3/uL (0.0-0.2); Absolute Eosinophil Count 0.16 10^3/uL (0.0-0.7); Absolute Monocyte Count 1.16 10^3/uL (0.1-0.8); Absolute Neutrophil Count 7.87 10^3/uL (1.2-6.7); Basophils % 0.7; Eosinophils % 1.3; HCT 41.4 % (40.0-50.0); HGB 14.4 g/dL (13.5-17.5); Immature Grans % 0.3; Lymphocytes % 23.1; MCH 28.6 pg (27.0-33.0); MCHC 34.8 % (32.0-36.0); MCV 82 fL (80-95); MPV 9.1 fL (8.0-11.0); Monocytes % 9.6; Platelet Count 385 10^3/uL (130-400); RBC 5.03 10^6/uL (4.36-5.78); RDW 13.6 % (11.8-14.1); RDW-SD 40.1 fL
== END 2024-02-08 12:57 | disposition home or self-care (01) ==
LOC: LBO 12:56
PROVIDERS: PCP Nurse Practitioner Family; Visit Provider Counselor Addiction (Substance Use Disorder)
DX: F20.89 Other schizophrenia (principal); Z79.899 Other long term (current) drug therapy
CPT/HCPCS: 36415; 85025

== ENCOUNTER 2024-03-07 04:44 | Outpatient (CLI) | payer MEDICAID, SELFPAY ==
[2024-03-07 10:14] LABS: Abs Immature Grans 0.12 10^3/uL (0.0-0.06); Absolute Basophil Count 0.09 10^3/uL (0.0-0.2); Absolute Eosinophil Count 0.25 10^3/uL (0.0-0.7); Absolute Lymphocyte Count 2.27 10^3/uL (1.2-3.4); Absolute Monocyte Count 0.61 10^3/uL (0.1-0.8); Absolute Neutrophil Count 6.89 10^3/uL (1.2-6.7); Basophils % 0.9; Eosinophils % 2.4; HCT 41.2 % (40.0-50.0); Immature Grans % 1.2; Lymphocytes % 22.2; MCH 28.4 pg (27.0-33.0); MCV 84 fL (80-95); MPV 8.7 fL (8.0-11.0); Neutrophils % 67.3; Platelet Count 356 10^3/uL (130-400); RBC 4.93 10^6/uL (4.36-5.78); RDW 13.2 % (11.8-14.1); RDW-SD 40.4 fL; WBC 10.23 10^3/uL (4.4-10.8)
== END 2024-03-07 04:45 | disposition home or self-care (01) ==
LOC: LBO 04:44
PROVIDERS: PCP Nurse Practitioner Family; Visit Provider Counselor Addiction (Substance Use Disorder)
DX: F20.9 Schizophrenia, unspecified (principal); Z79.899 Other long term (current) drug therapy
CPT/HCPCS: 36415; 85025

== ENCOUNTER 2024-04-04 14:55 | Emergency (ER) | payer MEDICAID, SELFPAY ==
[2024-04-04] VITALS (17 sets, daily range): BP systolic 192–227; BP diastolic 87–135; PULSE 62–89; RESP 12–25; TEMP 36.4; O2SAT 92–97
--- NOTE | 2024-04-04 15:15 | DI.CT_ITS ---
Exam(s) CT ABD AORTA CTA W RUNOFF EXAM: CT ABD AORTA CTA W RUNOFF CLINICAL HISTORY: lower extremity vascular issues. TECHNIQUE: Imaging Protocol: Axial CT angiography was performed with multi-slice acquisition and mu lti-planar and/or 3D reconstructions. CONTRAST MATERIAL: Intravenous: Omnipaque 350 Contrast volume:150 mL ml Contrast route:IV - Oral: No COMPARISON: No exams were available for comparison FINDINGS: Mild atelectasis at the right lung base. The liver, spleen, pancreas, adrenals, kidneys and gallbladder are unremarkable. The urinary bladder is distended and shows wall thickening and trabeculation. The prostate is enlarg ed. There is a small fatty containing right inguinal hernia. The bowel is unremarkable. The renal arteries, SMA, celiac axis and BOB are patent. There is severe atherosclerotic changes of the abdominal aorta which is heavily calcified and shows s ignificant mural thrombus. There is occlusion of the aorta at the distal 2 centimeters, to the level of the bifurcation. There is heavy calcification of the iliac arteries which are both also occluded proximally over a shwetha gth of 3 centimeters on the right and the entire left common iliac artery. Heavy calcification noted bilateral external iliac arteries. Heavy calcification of the internal rasta ac arteries. Common femoral arteries also show multifocal calcification but are patent bilaterally. The right superficial femoral artery shows diminished caliber throughout but is patent. The left sup erficial femoral artery is occluded at proximally and is reconstituted at the level of the mid thigh. Distally to this level, the the caliber is diminutive. The popliteal arteries are patent bilaterally. There is calcification at the trifurcation significant narrowing on the right. The calf vessels appe ar patent to the level of the ankles and not well evaluated distal to this level. 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 Occlusion of the p roximal left common iliac artery. Occlusion of the proximal half of the left femoral artery, reconstituted at the mid thigh. Enlarged prostate. Bladder wall thickening and trabeculation. RADIATION DOSE DELIVERED: 952.65mGy.cm Total DLP DATA REPOSITORY: All CT scans at this facility are submitted to the National Radiology Data Registry (NRDR) Dose Index Registry (DIR) with the [employer] (ACR). RADIATION OPTIMIZATION: All CT scans at this facility use at least one of these dose optimization te chniques: automated exposure control; mA and/or kV adjustment per patient size (includes targeted exa ms where dose is matched to clinical indication); or iterative reconstruction.
--- NOTE | 2024-04-04 15:39 | NUR.NOTE ---
Sent by CHLOÉ Amaro; Thoracic Surgery, . Nursing Note:
[2024-04-04 15:58] LABS: Abs Immature Grans 0.06 10^3/uL (0.0-0.06); Absolute Basophil Count 0.07 10^3/uL (0.0-0.2); Absolute Eosinophil Count 0.07 10^3/uL (0.0-0.7); Absolute Lymphocyte Count 2.62 10^3/uL (1.2-3.4); Absolute Monocyte Count 0.71 10^3/uL (0.1-0.8); Basophils % 0.5 %; Eosinophils % 0.5 %; HCT 39.8 % (40.0-50.0); HGB 13.7 g/dL (13.5-17.5); Immature Grans % 0.4 %; Lymphocytes % 19.5 %; MCH 28.2 pg (27.0-33.0); MCHC 34.4 % (32.0-36.0); MCV 82 fL (80-95); MPV 8.9 fL (8.0-11.0); Monocytes % 5.3 %; Neutrophils % 73.8 %; Platelet Count 354 10^3/uL (130-400); RBC 4.85 10^6/uL (4.36-5.78); RDW 12.7 % (11.8-14.1); RDW-SD 38.2 fL; WBC 13.44 10^3/uL (4.4-10.8)
[2024-04-04 15:59] LABS: Absolute Neutrophil Count 9.92 10^3/uL (1.2-6.7); Lactate 2.1 mmol/L (0.6-1.4)
[2024-04-04 16:14] LABS: ALT 24 U/L (16-63); AST 16 U/L (15-37); Albumin 4.3 g/dL (3.4-5.0); Alkaline Phosphatase 90 U/L (46-116); Anion Gap 10.5 mmol/L (3-11); BUN 15 mg/dL (7-18); Bilirubin, Total 0.3 mg/dL (0.2-1.0); CO2 27.5 mmol/L (21.0-32.0); CREATININE 1.1 mg/dL (0.70-1.30); Calcium 9.2 mg/dL (8.5-10.1); Chloride 107 mmol/L (98-107); Estimated GFR 71.32 (mL/min/1.73m2); Glucose 101 mg/dL (74-106); Potassium 4.3 mmol/L (3.5-5.1); Sodium 145 mmol/L (136-145); Total Protein 7.8 g/dL (6.4-8.2)
[2024-04-04] MEDS: Normal Saline 500 ML IV (16:20)
[2024-04-04] MEDS: Metoprolol 50 MG TAB PO (16:20)
[2024-04-04] MEDS: Omnipaque 350 MG/ML 100 ML BTL 150 ML IJ (16:44)
[2024-04-04] MEDS: Normal Saline - Diluent 50 ML VIAL 100 ML IJ (16:45)
[2024-04-04 17:15] LABS: Lactate 1.6 mmol/L (0.6-1.4)
[2024-04-04] MEDS: Metoprolol 5 MG/5 ML VIAL IVP (17:28)
--- NOTE | 2024-04-04 20:55 | ED.GENADUL_ITS ---
Discharge Plan Disposition Patient Disposition: Home Condition: Stable Discharge Details Clinical Impression: Claudication, Chronic leg pain, Peripheral vascular disease, Lower extremity arterial insufficiency, severe, left, Hypertension Primary Care Provider: Qian Walden ED Provider: Em Waldron Home Meds and New Rx's Prescriptions: No Action metoprolol succinate 25 mg tablet extended release 24 hr 25 mg PO DAILY ferrous sulfate [FeroSul] 325 mg (65 mg iron) tablet 325 mg PO DAILY ketoconazole 2 % cream 1 applic topical DAILY Qty: 120 6RF Rx Instructions: Apply to toenails once daily urea 40 % cream 1 applic topical DAILY Qty: 28.35 3RF acetaminophen 325 MG tablet 650 mg PO Q6H PRN albuterol sulfate [ProAir HFA] 8.5 GM HFA aerosol inhaler 1 puff Inhalation Q4H PRN tiotropium bromide [Spiriva with HandiHaler] 18 mcg capsule, w/inhalation device 1 cap inhalation DAILY Rx Instructions: puncture 1 cap using device; one dose = 2 inhalations atorvastatin 10 mg tablet 10 mg PO QHS clozapine 100 mg tablet 200 - 300 mg PO BID Rx Instructions: Take 2 tabs in AM and 3 tabs in PM trazodone 100 mg tablet 100 mg PO QHS PRN olanzapine 5 mg tablet 5 mg PO BID PRN aspirin [Aspirin Low-Strength] 81 MG tablet,chewable 81 mg PO DAILY Discharge Instructions Additional Instructions: - please check your blood pressure every day - if it is elevated, you need to follow up with your doctor to change your medicines. make sure you are taking medicines every day. - your leg pain is likely because of long standing vascular disease. you should follow back up at [facility]. return to the ED with severe pain, numbness, cold leg, color change. these are signs of acute loss of blood flow. HPI General Date/Time Provider Initiated Documentation: 04/04/24 15:04 . HPI Narrative: 73-year-old gentleman with past medical history of schizophrenia, lung cancer, CAD, vascular disease presents for evaluation of leg pain. He reports that his doctor to call to him to come here to be evaluated. He states that he has had pain in the back of his thighs on both sides for the last several months. It is worse with walking, not relieved with rest, not worse at nighttime. Not associated with any numbness or tingling. Not associated with any weakness. He denies any chest pain or shortness of breath. I was able to obtain additional information from the [facility] vascular clinic in which the patient was just seen in. The provider was concerned for hypertension and told the patient that he needed to come to the ER for evaluation. She wanted him to go to the ER at their at [facility], the patient elected to come to our ER because it is closer to his house. Related Data Home Medications Medication Instructions Recorded Confirmed acetaminophen 325 mg tablet 650 mg PO Q6H PRN 09/07/17 04/04/24 albuterol sulfate 90 mcg/actuation 1 puff inhalation Q4H PRN 09/07/17 04/04/24 aerosol inhaler (ProAir HFA) aspirin 81 mg chewable tablet 81 mg PO DAILY 09/23/17 04/04/24 (Aspirin Low-Strength) atorvastatin 10 mg tablet 10 mg PO QHS 08/13/23 04/04/24 clozapine 100 mg tablet 200 - 300 mg PO BID 08/13/23 04/04/24 olanzapine 5 mg tablet 5 mg PO BID PRN 08/13/23 04/04/24 tiotropium bromide 18 mcg capsule 1 cap inhalation DAILY 08/13/23 04/04/24 with inhalation device (Spiriva with HandiHaler) trazodone 100 mg tablet 100 mg PO QHS PRN 08/13/23 04/04/24 metoprolol succinate 25 mg 25 mg PO DAILY 01/21/24 04/04/24 tablet,extended release 24 hr ferrous sulfate 325 mg (65 mg 325 mg PO DAILY 02/18/24 04/04/24 iron) tablet (FeroSul) ketoconazole 2 % topical cream 1 applic topical DAILY #120 grams 03/28/24 04/04/24 urea 40 % topical cream 1 applic topical DAILY #28.35 grams 03/28/24 04/04/24 Previous Rx's Medication Instructions Recorded ketoconazole 2 % topical cream 1 applic topical DAILY #120 grams 03/28/24 urea 40 % topical cream 1 applic topical DAILY #28.35 grams 03/28/24 Allergies Allergy/AdvReac Type Severity Reaction Status Date / Time ibuprofen Allergy upset Verified 04/04/24 14:59 stomach General Stated Complaint: GenMedical MARY: 3 Exam Narrative Exam Narrative: Review of Systems: All systems reviewed & are unremarkable except as noted in HPI and below Well-developed, no acute distress NCAT PERRL, normal conjunctiva RRR + Hypertensive Unlabored respiratory effort Nondistended abdomen bilateral lower extremities warm, poor hair growth, sluggish cap refill, sensation intact No rashes or lesions. no focal neurologic deficits Appropriate mood and affect Course Vital Signs Vital signs: Vital Signs Temperature 36.4 C L 04/04/24 14:57 Pulse 89 04/04/24 14:57 Respiratory Rate 18 04/04/24 14:57 Blood Pressure 192/95 H 04/04/24 14:57 Pulse Oximetry 96 04/04/24 14:57 Temperature 36.4 C L 04/04/24 15:11 Temperature Source Skin 04/04/24 15:11 Pulse 63 04/04/24 19:02 Pulse 62 04/04/24 18:21 Respiratory Rate 15 04/04/24 19:02 Respiratory Effort Normal 04/04/24 15:11 Blood Pressure 203/87 H 04/04/24 19:02 Blood Pressure Mean 130 04/04/24 18:21 Blood Pressure Position Sitting 04/04/24 15:11 Pulse Oximetry 97 04/04/24 19:02 Oxygen Delivery Method Room Air 04/04/24 15:11 Oxygen Flow Rate 0 04/04/24 15:11 Pain Level 5 04/04/24 15:11 Lab/Test Results Lab/Test Results: Laboratory Tests Range/Units 04/04/24 04/04/24 15:45 17:12 WBC (4.4-10.8) 10^3/uL 13.44 H RBC (4.36-5.78) 10^6/uL 4.85 Hgb (13.5-17.5) g/dL 13.7 Hct (40.0-50.0) % 39.8 L MCV (80-95) fL 82 MCH (27.0-33.0) pg 28.2 MCHC (32.0-36.0) % 34.4 RDW (11.8-14.1) % 12.7 Plt Count (130-400) 10^3/uL 354 MPV (8.0-11.0) fL 8.9 Immature Gran % % 0.4 Neutrophils % % 73.8 Lymphocytes % % 19.5 Monocytes % % 5.3 Eosinophils % % 0.5 Basophils % % 0.5 Nucleated RBC % (0.0-0.3) % 0.0 Absolute Neutrophils (1.2-6.7) 10^3/uL 9.92 H Absolute Lymphocytes (1.2-3.4) 10^3/uL 2.62 Absolute Monocytes (0.1-0.8) 10^3/uL 0.71 Absolute Eosinophils (0.0-0.7) 10^3/uL 0.07 Absolute Basophils (0.0-0.2) 10^3/uL 0.07 VBG Lactate (0.6-1.4) mmol/L 2.1 H 1.6 H Sodium (136-145) mmol/L 145 Potassium (3.5-5.1) mmol/L 4.3 Chloride (98-107) mmol/L 107 Carbon Dioxide (21.0-32.0) mmol/L 27.5 Anion Gap (3-11) mmol/L 10.5 BUN (7-18) mg/dL 15 Creatinine (0.70-1.30) mg/dL 1.1 Est GFR (CKD-EPI 2020) (mL/min/1.73m2) 71.32 Glucose (74-106) mg/dL 101 Calcium (8.5-10.1) mg/dL 9.2 Total Bilirubin (0.2-1.0) mg/dL 0.3 AST (15-37) U/L 16 ALT (16-63) U/L 24 Alkaline Phosphatase (46-116) U/L 90 Total Protein (6.4-8.2) g/dL 7.8 Albumin (3.4-5.0) g/dL 4.3 Medical Decision Making Emergent evaluation of leg pain. Patient endorses leg pain which is likely claudication for the last several months. I reviewed his documentation from outside medical record and noted that he has significant vascular disease. He has noted to be hypertensive today and his heart rate is slightly elevated which makes me think he is not compliant with his blood pressure medications. He is not endorsing any chest pain or shortness of breath, no symptoms concerning for endorgan damage. His EKG is without acute ischemic changes. Lab work obtained. He has initially slightly elevated lactic acid and this is concerning for possible ischemia. He was given some IV fluids and lactic acid did improve. He has no sign of infection. A CT with runoff was obtained. There is no signs of acute arterial insufficiency on the CT imaging or on exam. I advised that the patient make sure that he is compliant with his blood pressure regimen, taking his medications as prescribed. Follow-up with his PCP for blood pressure reevaluation and follow back up with vascular at [facility] for further man agement of ongoing claudication Quality:SDOH Health Related Social Needs: No Data to Display [facility] All Active Problems Hypertension (Chronic) Lower extremity arterial insufficiency, severe, left (Acute) Peripheral vascular disease (Chronic) Chronic leg pain (Acute) Claudication (Acute) Nail dystrophy (Acute) Onychomycosis (Acute) Atherosclerosis of artery of both lower extremities (Acute) Nicotine dependence (Acute) History of lung cancer (Acute) January 2022: 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 Followed by [facility] cardiothoracic surgery Chronic schizophrenia (Acute) MICHELLE manages Advanced care planning/counseling discussion (Acute) Palliative care encounter (Acute) Medical History Smoker Alcohol dependence Heart murmur Hx of agent [place] exposure Internal hemorrhoid Chronic low back pain Abnormal cholesterol test Leg pain, bilateral Unintentional weight loss Adenocarcinoma, lung Prediabetes Asthma HTN (hypertension) GERD (gastroesophageal reflux disease) COPD (chronic obstructive pulmonary disease) Hepatitis C Paranoid schizophrenia Surgical History Hx of colonoscopy Colonoscopy - [facility] (12/28/17) Colonoscopy - [facility] (09/27/17) Family History Other Cancer Myocardial infarction Social History Smoking/Tobacco Use Status: Current every day Smoking risk assessment performed?: Yes Drug use: Never Housing: assisted living facility Number of Children: 1 Current gender identity: male What is your relationship status?: Panel score (0-1 are the most socially isolated patients): 0 What type of physical activity do you participate in: walking Do you feel safe in your relationship?: Yes
== END 2024-04-04 19:28 | disposition home or self-care (01) ==
PROVIDERS: Emergency Provider Emergency Medicine; PCP Nurse Practitioner Family
DX: M79.661 Pain in right lower leg (principal); M79.662 Pain in left lower leg; I10 Essential (primary) hypertension; I73.9 Peripheral vascular disease, unspecified
CPT/HCPCS: 75635; 80053; 96374; 99285; 83605; 85025; 99283; J3490

== ENCOUNTER 2024-04-10 04:53 | Outpatient (CLI) | payer MEDICAID, SELFPAY ==
[2024-04-10 11:03] LABS: Abs Immature Grans 0.05 10^3/uL (0.0-0.06); Absolute Basophil Count 0.07 10^3/uL (0.0-0.2); Absolute Lymphocyte Count 2.17 10^3/uL (1.2-3.4); Absolute Neutrophil Count 8.64 10^3/uL (1.2-6.7); Basophils % 0.6 %; Eosinophils % 1.4 %; HCT 42.8 % (40.0-50.0); HGB 14.5 g/dL (13.5-17.5); Immature Grans % 0.4 %; Lymphocytes % 18.4 %; MCH 28.3 pg (27.0-33.0); MCHC 33.9 % (32.0-36.0); MCV 84 fL (80-95); MPV 8.9 fL (8.0-11.0); Monocytes % 5.9 %; Neutrophils % 73.3 %; Platelet Count 335 10^3/uL (130-400); RBC 5.12 10^6/uL (4.36-5.78); RDW 12.9 % (11.8-14.1); RDW-SD 39.3 fL; WBC 11.79 10^3/uL (4.4-10.8)
[2024-04-10 11:04] LABS: Absolute Eosinophil Count 0.17 10^3/uL (0.0-0.7)
== END 2024-04-10 04:54 | disposition home or self-care (01) ==
PROVIDERS: Counselor Addiction (Substance Use Disorder); PCP Nurse Practitioner Family; Visit Provider Nurse Practitioner Family
DX: Z79.899 Other long term (current) drug therapy (principal); F20.9 Schizophrenia, unspecified
CPT/HCPCS: 36415; 85025

== ENCOUNTER 2024-05-08 06:05 | Outpatient (CLI) | payer MEDICAID, SELFPAY ==
[2024-05-08 11:10] LABS: Abs Immature Grans 0.08 10^3/uL (0.0-0.06); Absolute Eosinophil Count 0.12 10^3/uL (0.0-0.7); Absolute Monocyte Count 0.95 10^3/uL (0.1-0.8); Absolute Neutrophil Count 11.82 10^3/uL (1.2-6.7); Basophils % 0.5 %; Eosinophils % 0.8 %; HCT 43.3 % (40.0-50.0); HGB 14.8 g/dL (13.5-17.5); Immature Grans % 0.5 %; Lymphocytes % 12.4 %; MCH 28.1 pg (27.0-33.0); MCHC 34.2 % (32.0-36.0); MCV 82 fL (80-95); MPV 8.9 fL (8.0-11.0); Monocytes % 6.4 %; Neutrophils % 79.4 %; Platelet Count 360 10^3/uL (130-400); RBC 5.27 10^6/uL (4.36-5.78); RDW 13.5 % (11.8-14.1); WBC 14.89 10^3/uL (4.4-10.8)
[2024-05-08 11:27] LABS: Absolute Basophil Count 0.07 10^3/uL (0.0-0.2); Absolute Lymphocyte Count 1.85 10^3/uL (1.2-3.4)
== END 2024-05-08 06:06 | disposition home or self-care (01) ==
LOC: LBO 06:05
PROVIDERS: PCP Nurse Practitioner Family; Visit Provider Nurse Practitioner Family
DX: Z79.899 Other long term (current) drug therapy (principal); F20.9 Schizophrenia, unspecified
CPT/HCPCS: 36415; 85025

== ENCOUNTER 2024-06-06 04:38 | Outpatient (CLI) | payer MEDICAID, SELFPAY ==
[2024-06-06 11:56] LABS: Abs Immature Grans 0.05 10^3/uL (0.0-0.06); Absolute Basophil Count 0.07 10^3/uL (0.0-0.2); Absolute Eosinophil Count 0.09 10^3/uL (0.0-0.7); Absolute Lymphocyte Count 2.15 10^3/uL (1.2-3.4); Basophils % 0.6 %; Eosinophils % 0.8 %; HGB 13.6 g/dL (13.5-17.5); Immature Grans % 0.4 %; Lymphocytes % 18.7 %; MCH 29.1 pg (27.0-33.0); MCHC 35.8 % (32.0-36.0); MCV 81 fL (80-95); MPV 8.7 fL (8.0-11.0); Monocytes % 9.7 %; Neutrophils % 69.8 %; Platelet Count 306 10^3/uL (130-400); RBC 4.68 10^6/uL (4.36-5.78); RDW 13.2 % (11.8-14.1); RDW-SD 38.7 fL; WBC 11.49 10^3/uL (4.4-10.8)
[2024-06-06 11:58] LABS: Absolute Monocyte Count 1.11 10^3/uL (0.1-0.8); Absolute Neutrophil Count 8.02 10^3/uL (1.2-6.7)
== END 2024-06-06 04:39 | disposition home or self-care (01) ==
PROVIDERS: PCP Nurse Practitioner Family; Visit Provider Nurse Practitioner Family
DX: Z79.899 Other long term (current) drug therapy (principal); F20.9 Schizophrenia, unspecified
CPT/HCPCS: 36415; 85025

== ENCOUNTER 2024-07-04 16:15 | Outpatient (CLI) | payer MEDICAID, SELFPAY ==
[2024-07-04 10:36] LABS: Abs Immature Grans 0.06 10^3/uL (0.0-0.06); Absolute Basophil Count 0.07 10^3/uL (0.0-0.2); Absolute Monocyte Count 1.05 10^3/uL (0.1-0.8); Basophils % 0.6 %; Eosinophils % 1.6 %; HCT 44.5 % (40.0-50.0); HGB 15.1 g/dL (13.5-17.5); Immature Grans % 0.5 %; Lymphocytes % 22.5 %; MCH 28.2 pg (27.0-33.0); MCHC 33.9 % (32.0-36.0); MCV 83 fL (80-95); MPV 8.8 fL (8.0-11.0); Monocytes % 8.5 %; Neutrophils % 66.3 %; Platelet Count 335 10^3/uL (130-400); RBC 5.35 10^6/uL (4.36-5.78); RDW 13.1 % (11.8-14.1); RDW-SD 39.6 fL; WBC 12.38 10^3/uL (4.4-10.8)
[2024-07-04 10:40] LABS: Absolute Lymphocyte Count 2.79 10^3/uL (1.2-3.4); Absolute Neutrophil Count 8.21 10^3/uL (1.2-6.7)
== END 2024-07-04 16:16 | disposition home or self-care (01) ==
LOC: LBO 16:17
PROVIDERS: PCP Nurse Practitioner Family; Visit Provider Nurse Practitioner Psychiatric/Mental Health
DX: F20.9 Schizophrenia, unspecified (principal); Z79.899 Other long term (current) drug therapy
CPT/HCPCS: 36415; 85025

== ENCOUNTER 2024-07-06 18:41 | Outpatient (REF) | payer MEDICAID, SELFPAY ==
[2024-07-06 15:36] LABS: Anion Gap 7.4 mmol/L (3-11); BUN 23 mg/dL (7-18); CO2 31.6 mmol/L (21.0-32.0); Calcium 9.4 mg/dL (8.5-10.1); Calculated LDL 68 mg/dL (<100); Chloride 108 mmol/L (98-107); Cholesterol 130 mg/dL (<200); Estimated GFR 79.47 (mL/min/1.73m2); Glucose 137 mg/dL (74-106); HDL Cholesterol 35 mg/dL (40-60); Sodium 147 mmol/L (136-145); Triglyceride 139 mg/dL (<150)
[2024-07-06 15:51] LABS: Hemoglobin A1C 5.9 % (<5.7)
== END 2024-07-06 18:42 | disposition home or self-care (01) ==
LOC: NCHCN 18:41
PROVIDERS: PCP Nurse Practitioner Family; Visit Provider Nurse Practitioner Family
DX: I10 Essential (primary) hypertension (principal); R73.03 Prediabetes; I25.84 Coronary atherosclerosis due to calcified coronary lesion
CPT/HCPCS: 80048; 80061; 83036

== ENCOUNTER 2024-07-07 10:12 | Outpatient (RCR) | payer MEDICAID, SELFPAY ==
--- NOTE | 2024-07-11 10:30 | HOLTER_ITS ---
APPROVED REPORT Conclusion This is a 48-hour Holter monitor Rhythm throughout was sinus with an average heart rate of 71. Minimum was 57, maximum 122 There are very rare isolated atrial and ventricular ectopic beats There was no atrial fibrillation no high-grade AV block no pauses greater than 3 seconds No symptoms were reported
== END 2024-07-29 23:59 | disposition home or self-care (01) ==
LOC: CARDOPNVT 10:12
PROVIDERS: PCP Nurse Practitioner Family; Visit Provider Internal Medicine Cardiovascular Disease
DX: R00.0 Tachycardia, unspecified (principal)
CPT/HCPCS: 93225; 93226

== ENCOUNTER 2024-08-01 11:31 | Outpatient (CLI) | payer MEDICAID, SELFPAY ==
[2024-08-01 12:05] LABS: Abs Immature Grans 0.09 10^3/uL (0.0-0.06); Absolute Basophil Count 0.06 10^3/uL (0.0-0.2); Absolute Eosinophil Count 0.12 10^3/uL (0.0-0.7); Absolute Monocyte Count 0.91 10^3/uL (0.1-0.8); Absolute Neutrophil Count 8.41 10^3/uL (1.2-6.7); Basophils % 0.5 %; HCT 36.8 % (40.0-50.0); HGB 12.9 g/dL (13.5-17.5); Immature Grans % 0.8 %; MCH 28.8 pg (27.0-33.0); MCHC 35.1 % (32.0-36.0); MCV 82 fL (80-95); MPV 9.1 fL (8.0-11.0); Monocytes % 7.8 %; Neutrophils % 71.9 %; Platelet Count 358 10^3/uL (130-400); RBC 4.48 10^6/uL (4.36-5.78); RDW 13.3 % (11.8-14.1); RDW-SD 39.4 fL; WBC 11.69 10^3/uL (4.4-10.8)
== END 2024-08-01 11:32 | disposition home or self-care (01) ==
LOC: LBO 11:31
PROVIDERS: PCP Nurse Practitioner Family; Visit Provider Nurse Practitioner Psychiatric/Mental Health
DX: F20.9 Schizophrenia, unspecified (principal); Z79.899 Other long term (current) drug therapy
CPT/HCPCS: 36415; 85025

== ENCOUNTER 2024-08-29 03:41 | Outpatient (CLI) | payer MEDICAID, SELFPAY ==
[2024-08-29 10:49] LABS: Abs Immature Grans 0.07 10^3/uL (0.0-0.06); Absolute Basophil Count 0.09 10^3/uL (0.0-0.2); Absolute Eosinophil Count 0.31 10^3/uL (0.0-0.7); Absolute Monocyte Count 1.07 10^3/uL (0.1-0.8); Absolute Neutrophil Count 8.07 10^3/uL (1.2-6.7); Basophils % 0.7 %; Eosinophils % 2.5 %; HCT 39.4 % (40.0-50.0); HGB 13.2 g/dL (13.5-17.5); Immature Grans % 0.6 %; Lymphocytes % 22.6 %; MCHC 33.5 % (32.0-36.0); MCV 84 fL (80-95); MPV 8.7 fL (8.0-11.0); Monocytes % 8.6 %; Platelet Count 327 10^3/uL (130-400); RBC 4.72 10^6/uL (4.36-5.78); RDW 13.2 % (11.8-14.1); RDW-SD 40.5 fL; WBC 12.41 10^3/uL (4.4-10.8)
== END 2024-08-29 03:42 | disposition home or self-care (01) ==
PROVIDERS: PCP Nurse Practitioner Family; Visit Provider Nurse Practitioner Psychiatric/Mental Health
DX: F20.9 Schizophrenia, unspecified (principal); Z79.899 Other long term (current) drug therapy
CPT/HCPCS: 36415; 85025

== ENCOUNTER 2024-09-26 03:07 | Outpatient (CLI) | payer MEDICAID, SELFPAY ==
[2024-09-26 10:44] LABS: Abs Immature Grans 0.09 10^3/uL (0.0-0.06); Absolute Basophil Count 0.06 10^3/uL (0.0-0.2); Absolute Eosinophil Count 0.07 10^3/uL (0.0-0.7); Absolute Lymphocyte Count 2.41 10^3/uL (1.2-3.4); Absolute Monocyte Count 0.99 10^3/uL (0.1-0.8); Basophils % 0.4 %; Eosinophils % 0.5 %; HCT 42.6 % (40.0-50.0); HGB 14.4 g/dL (13.5-17.5); Immature Grans % 0.6 %; MCH 28.2 pg (27.0-33.0); MCHC 33.8 % (32.0-36.0); MCV 83 fL (80-95); MPV 8.5 fL (8.0-11.0); Neutrophils % 74.5 %; Platelet Count 358 10^3/uL (130-400); RBC 5.11 10^6/uL (4.36-5.78); RDW 13.1 % (11.8-14.1); WBC 14.15 10^3/uL (4.4-10.8)
[2024-09-26 10:47] LABS: Absolute Neutrophil Count 10.54 10^3/uL (1.2-6.7)
== END 2024-09-26 03:08 | disposition home or self-care (01) ==
LOC: LBO 03:10
PROVIDERS: PCP Nurse Practitioner Family; Visit Provider Nurse Practitioner Psychiatric/Mental Health
DX: F20.9 Schizophrenia, unspecified (principal); Z79.899 Other long term (current) drug therapy
CPT/HCPCS: 36415; 85025

== ENCOUNTER 2024-10-20 02:20 | Outpatient (CLI) | payer MEDICAID, SELFPAY ==
[2024-10-20 10:55] LABS: Abs Immature Grans 0.09 10^3/uL (0.0-0.06); Absolute Basophil Count 0.07 10^3/uL (0.0-0.2); Absolute Eosinophil Count 0.15 10^3/uL (0.0-0.7); Absolute Lymphocyte Count 2.37 10^3/uL (1.2-3.4); Absolute Monocyte Count 1.08 10^3/uL (0.1-0.8); Absolute Neutrophil Count 7.78 10^3/uL (1.2-6.7); Basophils % 0.6 %; Eosinophils % 1.3 %; HCT 40.3 % (40.0-50.0); HGB 13.7 g/dL (13.5-17.5); Immature Grans % 0.8 %; Lymphocytes % 20.5 %; MCH 28.4 pg (27.0-33.0); MCV 84 fL (80-95); MPV 8.5 fL (8.0-11.0); Monocytes % 9.4 %; Neutrophils % 67.4 %; Platelet Count 337 10^3/uL (130-400); RBC 4.82 10^6/uL (4.36-5.78); RDW 13.2 % (11.8-14.1); RDW-SD 40.4 fL; WBC 11.54 10^3/uL (4.4-10.8)
== END 2024-10-20 02:21 | disposition home or self-care (01) ==
PROVIDERS: PCP Nurse Practitioner Family; Visit Provider Nurse Practitioner Psychiatric/Mental Health
DX: F20.9 Schizophrenia, unspecified (principal); Z79.899 Other long term (current) drug therapy
CPT/HCPCS: 36415; 85025

== ENCOUNTER 2024-10-31 11:39 | Outpatient (CLI) | payer MEDICAID, SELFPAY ==
[2024-10-31 11:36] LABS: Abs Immature Grans 0.07 10^3/uL (0.0-0.06); Absolute Basophil Count 0.07 10^3/uL (0.0-0.2); Absolute Eosinophil Count 0.08 10^3/uL (0.0-0.7); Absolute Lymphocyte Count 2.46 10^3/uL (1.2-3.4); Absolute Monocyte Count 0.98 10^3/uL (0.1-0.8); Absolute Neutrophil Count 9.78 10^3/uL (1.2-6.7); Basophils % 0.5 %; Eosinophils % 0.6 %; HCT 40.8 % (40.0-50.0); HGB 13.9 g/dL (13.5-17.5); Immature Grans % 0.5 %; Lymphocytes % 18.3 %; MCH 28.5 pg (27.0-33.0); MCHC 34.1 % (32.0-36.0); MCV 84 fL (80-95); MPV 8.4 fL (8.0-11.0); Monocytes % 7.3 %; Neutrophils % 72.8 %; Platelet Count 345 10^3/uL (130-400); RBC 4.87 10^6/uL (4.36-5.78); RDW 13.3 % (11.8-14.1); RDW-SD 40.6 fL; WBC 13.44 10^3/uL (4.4-10.8)
== END 2024-10-31 11:40 | disposition home or self-care (01) ==
LOC: LBO 11:49
PROVIDERS: PCP Nurse Practitioner Family; Visit Provider Nurse Practitioner Psychiatric/Mental Health
DX: F20.9 Schizophrenia, unspecified (principal); Z79.899 Other long term (current) drug therapy
CPT/HCPCS: 36415; 85025

== ENCOUNTER 2024-12-04 04:07 | Outpatient (CLI) | payer MEDICAID, SELFPAY ==
[2024-12-04 11:38] LABS: Abs Immature Grans 0.09 10^3/uL (0.0-0.06); Absolute Basophil Count 0.06 10^3/uL (0.0-0.2); Absolute Eosinophil Count 0.18 10^3/uL (0.0-0.7); Absolute Monocyte Count 1.22 10^3/uL (0.1-0.8); Absolute Neutrophil Count 8.49 10^3/uL (1.2-6.7); Basophils % 0.5 %; Eosinophils % 1.4 %; HCT 38.7 % (40.0-50.0); HGB 13.2 g/dL (13.5-17.5); Immature Grans % 0.7 %; Lymphocytes % 20.3 %; MCH 28.2 pg (27.0-33.0); MCHC 34.1 % (32.0-36.0); MCV 83 fL (80-95); MPV 8.5 fL (8.0-11.0); Monocytes % 9.7 %; Neutrophils % 67.4 %; Platelet Count 343 10^3/uL (130-400); RBC 4.68 10^6/uL (4.36-5.78); RDW 13.5 % (11.8-14.1); RDW-SD 39.7 fL; WBC 12.59 10^3/uL (4.4-10.8)
[2024-12-04 11:40] LABS: Absolute Lymphocyte Count 2.56 10^3/uL (1.2-3.4)
[2024-12-04 11:59] LABS: ALT 26 U/L (16-63); AST 18 U/L (15-37); Albumin 3.9 g/dL (3.4-5.0); Alkaline Phosphatase 86 U/L (46-116); Anion Gap 5.6 mmol/L (3-11); BUN 13 mg/dL (7-18); Bilirubin, Total 0.17 mg/dL (0.2-1.0); CO2 32.4 mmol/L (21.0-32.0); Chloride 106 mmol/L (98-107); Estimated GFR 79.47 (mL/min/1.73m2); Glucose 99 mg/dL (74-106); Potassium 4.2 mmol/L (3.5-5.1); Sodium 144 mmol/L (136-145)
== END 2024-12-04 04:08 | disposition home or self-care (01) ==
PROVIDERS: PCP Nurse Practitioner Family; Visit Provider Nurse Practitioner Psychiatric/Mental Health
DX: F20.9 Schizophrenia, unspecified (principal); Z79.899 Other long term (current) drug therapy
CPT/HCPCS: 36415; 80053; 85025

== ENCOUNTER 2025-01-05 01:13 | Outpatient (CLI) | payer MEDICAID, SELFPAY ==
[2025-01-05 11:43] LABS: Abs Immature Grans 0.07 10^3/uL (0.0-0.06); Absolute Basophil Count 0.08 10^3/uL (0.0-0.2); Absolute Eosinophil Count 0.09 10^3/uL (0.0-0.7); Absolute Lymphocyte Count 2.33 10^3/uL (1.2-3.4); Absolute Monocyte Count 1.02 10^3/uL (0.1-0.8); Basophils % 0.6 %; Eosinophils % 0.7 %; HCT 42.3 % (40.0-50.0); HGB 14.4 g/dL (13.5-17.5); Immature Grans % 0.6 %; Lymphocytes % 18.5 %; MCV 82 fL (80-95); MPV 9.2 fL (8.0-11.0); Monocytes % 8.1 %; Neutrophils % 71.5 %; Platelet Count 361 10^3/uL (130-400); RBC 5.15 10^6/uL (4.36-5.78); RDW 13.2 % (11.8-14.1); RDW-SD 39.4 fL; WBC 12.59 10^3/uL (4.4-10.8)
== END 2025-01-05 01:14 | disposition home or self-care (01) ==
PROVIDERS: PCP Nurse Practitioner Family; Visit Provider Nurse Practitioner Psychiatric/Mental Health
DX: F20.9 Schizophrenia, unspecified (principal); Z79.899 Other long term (current) drug therapy
CPT/HCPCS: 36415; 85025

== ENCOUNTER 2025-01-30 03:03 | Outpatient (CLI) | payer MEDICAID, SELFPAY ==
[2025-01-30 11:12] LABS: Abs Immature Grans 0.08 10^3/uL (0.0-0.06); Absolute Monocyte Count 1.22 10^3/uL (0.1-0.8); Absolute Neutrophil Count 9.32 10^3/uL (1.2-6.7); Basophils % 0.5 %; Eosinophils % 0.8 %; HCT 40.5 % (40.0-50.0); HGB 13.6 g/dL (13.5-17.5); Immature Grans % 0.6 %; Lymphocytes % 16.3 %; MCH 27.9 pg (27.0-33.0); MCHC 33.6 % (32.0-36.0); MCV 83 fL (80-95); MPV 8.8 fL (8.0-11.0); Monocytes % 9.5 %; Neutrophils % 72.3 %; Platelet Count 346 10^3/uL (130-400); RBC 4.87 10^6/uL (4.36-5.78); RDW 13.2 % (11.8-14.1); WBC 12.89 10^3/uL (4.4-10.8)
[2025-01-30 11:14] LABS: Absolute Basophil Count 0.06 10^3/uL (0.0-0.2)
[2025-01-30 11:50] LABS: ALT 25 U/L (16-63); AST 17 U/L (15-37); Albumin 3.9 g/dL (3.4-5.0); Alkaline Phosphatase 90 U/L (46-116); Anion Gap 8.9 mmol/L (3-11); BUN 19 mg/dL (7-18); Bilirubin, Total 0.28 mg/dL (0.2-1.0); CO2 30.1 mmol/L (21.0-32.0); CREATININE 1.1 mg/dL (0.70-1.30); Calcium 9.1 mg/dL (8.5-10.1); Chloride 106 mmol/L (98-107); Estimated GFR 70.88 (mL/min/1.73m2); Glucose 80 mg/dL (74-106); Potassium 4.5 mmol/L (3.5-5.1); Sodium 145 mmol/L (136-145); Total Protein 7.1 g/dL (6.4-8.2)
== END 2025-01-30 03:04 | disposition home or self-care (01) ==
PROVIDERS: PCP Nurse Practitioner Family; Visit Provider Nurse Practitioner Psychiatric/Mental Health
DX: F20.9 Schizophrenia, unspecified (principal); Z79.899 Other long term (current) drug therapy
CPT/HCPCS: 36415; 80053; 85025

== ENCOUNTER 2025-02-28 03:02 | Outpatient (CLI) | payer MEDICAID, SELFPAY ==
[2025-02-28 09:14] LABS: Abs Immature Grans 0.06 10^3/uL (0.0-0.06); Absolute Basophil Count 0.08 10^3/uL (0.0-0.2); Absolute Eosinophil Count 0.34 10^3/uL (0.0-0.7); Absolute Lymphocyte Count 2.81 10^3/uL (1.2-3.4); Absolute Monocyte Count 0.86 10^3/uL (0.1-0.8); Absolute Neutrophil Count 6.58 10^3/uL (1.2-6.7); Basophils % 0.7 %; Eosinophils % 3.2 %; HCT 40.3 % (40.0-50.0); HGB 14.1 g/dL (13.5-17.5); Immature Grans % 0.6 %; Lymphocytes % 26.2 %; MCH 28.7 pg (27.0-33.0); MCV 82 fL (80-95); MPV 9.1 fL (8.0-11.0); Neutrophils % 61.3 %; Platelet Count 319 10^3/uL (130-400); RBC 4.91 10^6/uL (4.36-5.78); RDW 13.2 % (11.8-14.1); RDW-SD 39.2 fL; WBC 10.73 10^3/uL (4.4-10.8)
[2025-02-28 09:53] LABS: ALT 24 U/L (16-63); AST 20 U/L (15-37); Albumin 3.8 g/dL (3.4-5.0); Alkaline Phosphatase 98 U/L (46-116); Anion Gap 12.2 mmol/L (3-11); BUN 14 mg/dL (7-18); Bilirubin, Total 0.2 mg/dL (0.2-1.0); CO2 28.8 mmol/L (21.0-32.0); CREATININE 1.1 mg/dL (0.70-1.30); Calcium 9.1 mg/dL (8.5-10.1); Chloride 108 mmol/L (98-107); Estimated GFR 70.88 (mL/min/1.73m2); Glucose 108 mg/dL (74-106); Potassium 4.2 mmol/L (3.5-5.1); Sodium 149 mmol/L (136-145)
== END 2025-02-28 03:03 | disposition home or self-care (01) ==
PROVIDERS: PCP Nurse Practitioner Family; Visit Provider Nurse Practitioner Psychiatric/Mental Health
DX: F20.9 Schizophrenia, unspecified (principal); Z79.899 Other long term (current) drug therapy
CPT/HCPCS: 36415; 80053; 85025

== ENCOUNTER 2025-03-27 00:07 | Outpatient (CLI) | payer MEDICAID, SELFPAY ==
--- NOTE | 2025-03-27 06:45 | DI.RAD_ITS ---
Exam(s) XR TOE LT FOURTH XR FOOT LT COMPLETE EXAM: XR FOOT LT COMPLETE and XR toe LT 4th CLINICAL HISTORY: ? osteomyelitis, 4th toe ulcer overlying PIP,CELLULITIS,L97.509,L03.90. TECHNIQUE: 2D digital imaging was performed of the left foot and 4th toe. Seven images were obtaine d. AP, oblique and lateral views were obtained. COMPARISON: There are no priors for comparison. FINDINGS: BONES: No acute fracture is present. No bony destructive lesion is seen. JOINTS: No dislocation present. There are marked degenerative changes seen at the 1st MTP joint. Ham mertoe deformity of the 2nd toe is noted. SOFT TISSUE: Normal. IMPRESSION: 1. There is no evidence of osteomyelitis of the 4th toe. 2. Degenerative changes of the left foot particularly at the 1st MTP joint. DATA REPOSITORY: RADIATION DOSE DELIVERED:
== END 2025-03-27 00:27 ==
LOC: DI 00:07
PROVIDERS: PCP Nurse Practitioner Family; Visit Provider Podiatrist
DX: L97.522 Non-pressure chronic ulcer of other part of left foot with fat layer exposed; L60.3 Nail dystrophy; I70.203 Unspecified atherosclerosis of native arteries of extremities, bilateral legs; B35.1 Tinea unguium
CPT/HCPCS: 73630; 73660

== ENCOUNTER 2025-04-03 02:11 | Outpatient (CLI) | payer MEDICAID, SELFPAY ==
[2025-04-03 10:06] LABS: Abs Immature Grans 0.05 10^3/uL (0.0-0.06); Absolute Eosinophil Count 0.19 10^3/uL (0.0-0.7); Absolute Monocyte Count 1.09 10^3/uL (0.1-0.8); Absolute Neutrophil Count 8.69 10^3/uL (1.2-6.7); Basophils % 0.8 %; Eosinophils % 1.5 %; HCT 42.5 % (40.0-50.0); HGB 14.7 g/dL (13.5-17.5); Immature Grans % 0.4 %; Lymphocytes % 18.5 %; MCH 28.3 pg (27.0-33.0); MCHC 34.6 % (32.0-36.0); MCV 82 fL (80-95); MPV 9.1 fL (8.0-11.0); Monocytes % 8.8 %; Platelet Count 356 10^3/uL (130-400); RBC 5.19 10^6/uL (4.36-5.78); RDW 13.5 % (11.8-14.1); RDW-SD 39.9 fL; WBC 12.41 10^3/uL (4.4-10.8)
[2025-04-03 10:36] LABS: ALT 20 U/L (16-63); AST 14 U/L (15-37); Albumin 3.9 g/dL (3.4-5.0); Alkaline Phosphatase 87 U/L (46-116); Anion Gap 9.8 mmol/L (3-11); BUN 21 mg/dL (7-18); Bilirubin, Total 0.3 mg/dL (0.2-1.0); CO2 28.2 mmol/L (21.0-32.0); Calcium 9.1 mg/dL (8.5-10.1); Chloride 106 mmol/L (98-107); Estimated GFR 79.47 (mL/min/1.73m2); Glucose 87 mg/dL (74-106); Sodium 144 mmol/L (136-145); Total Protein 7.1 g/dL (6.4-8.2)
== END 2025-04-03 02:12 | disposition home or self-care (01) ==
PROVIDERS: PCP Nurse Practitioner Family; Referring Provider Nurse Practitioner Psychiatric/Mental Health; Visit Provider Nurse Practitioner Psychiatric/Mental Health
DX: F20.9 Schizophrenia, unspecified (principal); Z79.899 Other long term (current) drug therapy
CPT/HCPCS: 36415; 80053; 85025

== ENCOUNTER 2025-04-19 02:36 | Outpatient (CLI) | payer MEDICAID, SELFPAY ==
--- NOTE | 2025-04-19 | DI.CTLCSR_ITS ---
Exam(s) CT CHEST LUNG CANCER SCREEN EXAM: CT CHEST LUNG CANCER SCREEN CLINICAL HISTORY: Nicotine dependence, cigarettes, F17.210; Screening for lung CA TECHNIQUE: Imaging Protocol: Axial computed tomography images with coronal and sagittal reformatted images were created and reviewed. Low dose screening protocol. COMPARISON: CT CT CHEST LUNG CANCER SCREEN from 11/19/[address] CHEST WO from 11/25/2021 FINDINGS: Tracheobronchial tree: No bronchiectasis or mucus plugging. Mediastinum and Marcella: No dominant adenopathy or fluid collection. Pulmonary parenchyma: Suture material noted in the left upper lobe. The is a location of the previou sly noted mass. There is a new area of nodularity seen abutting the major fissure in the lingula joya suring 7 x 5 millimeters. Stable 3 millimeter nodule right lower lobe. No consolidation mild-to-mod erate paraseptal and central lobular emphysematous changes, greater in the upper lobes.. No signific ant interstitial changes. Lung Nodules: None. Pleura: No effusion. No pneumothorax. Heart: The heart is mildly dilated. Severe coronary artery calcifications are seen. No pericardial e ffusion. Aorta: Descending aorta measures 3.7 cm. Ascending aorta measures 3.4 cm. Eacp-aq-jwylorve atheros clerotic calcifications. Upper abdomen: Unremarkable. Bones: Unremarkable for age. Soft Tissues: Unremarkable. IMPRESSION: New there is nodular density abutting the major fissure in the lingula measuring 7 x 5 millimeters. Lung RADS Cat 4X - Findings with additional features which require additional testing and tissue [facility]. Lung-RADS 1.0 CATEGORIES: Category 0 - Prior chest CT exam(s) being located for comparison. Category 1 - Annual screening in 12 months. No nodules or definitely benign nodules. Category 2 - Annual screening in 12 months. Benign appearance. Nodules with low likelihood of becomin g active cancer. Category 3 - 6-month follow-up. Probably benign. Short-term follow-up suggested. Nodules with low lik elihood of becoming active cancer. Category 4A - 3-month follow-up and CT/PET if >8 mm in size. Suspicious finding. Findings which requi re additional testing. Category 4B - Findings which require additional testing and tissue sampling. Category 4X - Category 3 or 4 nodules with additional features or imaging findings that increases the suspicion of malignancy. Modifier S- Potentially clinically significant findings (non lung cancer) RADIATION DOSE DELIVERED: !Error Total DLP DATA REPOSITORY: All CT scans at this facility are submitted to the National Radiology Data Registry (NRDR) Dose Index Registry (DIR) with the [employer] (A[employer]). RADIATION OPTIMIZATION: All CT scans at this facility use at least one of these dose optimization te chniques: automated exposure control; mA and/or kV adjustment per patient size (includes targeted exa ms where dose is matched to clinical indication); or iterative reconstruction.
== END 2025-04-19 02:56 ==
LOC: DI 02:36
PROVIDERS: PCP Nurse Practitioner Family; Visit Provider Nurse Practitioner Family
DX: F17.210 Nicotine dependence, cigarettes, uncomplicated (principal); R91.8 Other nonspecific abnormal finding of lung field; Z12.2 Encounter for screening for malignant neoplasm of respiratory organs
CPT/HCPCS: 71271

== ENCOUNTER 2025-05-01 02:16 | Outpatient (CLI) | payer MEDICAID, SELFPAY ==
[2025-05-01 10:53] LABS: Abs Immature Grans 0.06 10^3/uL (0.0-0.06); Absolute Basophil Count 0.05 10^3/uL (0.0-0.2); Absolute Eosinophil Count 0.11 10^3/uL (0.0-0.7); Absolute Neutrophil Count 7.53 10^3/uL (1.2-6.7); Basophils % 0.5 %; HGB 13.4 g/dL (13.5-17.5); Immature Grans % 0.6 %; Lymphocytes % 19.4 %; MCHC 34.4 % (32.0-36.0); MCV 81 fL (80-95); MPV 8.7 fL (8.0-11.0); Neutrophils % 69.5 %; Platelet Count 324 10^3/uL (130-400); RBC 4.79 10^6/uL (4.36-5.78); RDW-SD 38.1 fL; WBC 10.83 10^3/uL (4.4-10.8)
[2025-05-01 10:57] LABS: Absolute Monocyte Count 0.97 10^3/uL (0.1-0.8)
== END 2025-05-01 02:17 | disposition home or self-care (01) ==
LOC: LBO 02:16
PROVIDERS: Nurse Practitioner Psychiatric/Mental Health; PCP Nurse Practitioner Family; Visit Provider Nurse Practitioner Psychiatric/Mental Health
DX: F20.9 Schizophrenia, unspecified (principal); Z79.899 Other long term (current) drug therapy
CPT/HCPCS: 36415; 85025

== ENCOUNTER 2025-05-31 02:36 | Outpatient (CLI) | payer MEDICAID, SELFPAY ==
[2025-05-31 10:39] LABS: Abs Immature Grans 0.03 10^3/uL (0.0-0.06); HCT 42.4 % (40.0-50.0); HGB 14.8 g/dL (13.5-17.5); Immature Grans % 0.3 %; MCH 28.5 pg (27.0-33.0); MCHC 34.9 % (32.0-36.0); MCV 82 fL (80-95); MPV 8.9 fL (8.0-11.0); Platelet Count 268 10^3/uL (130-400); RBC 5.19 10^6/uL (4.36-5.78); RDW 13.2 % (11.8-14.1); RDW-SD 38.8 fL; WBC 10.52 10^3/uL (4.4-10.8)
== END 2025-05-31 02:37 | disposition home or self-care (01) ==
LOC: LBO 02:36
PROVIDERS: PCP Nurse Practitioner Family; Visit Provider Nurse Practitioner Psychiatric/Mental Health
DX: F20.9 Schizophrenia, unspecified (principal); Z79.899 Other long term (current) drug therapy
CPT/HCPCS: 36415; 85025

== ENCOUNTER 2025-06-18 11:58 | Outpatient (REF) | payer MEDICAID, SELFPAY | END 2025-06-18 11:59 | disposition home or self-care (01) | LOC: LBN 11:58 | PROVIDERS: PCP Nurse Practitioner Family; Visit Provider Podiatrist | DX: L97.529 Non-pressure chronic ulcer of other part of left foot with unspecified severity (principal) | CPT/HCPCS: 87077; 87070; 87075; 87186; 87205 ==

== ENCOUNTER 2025-07-03 03:40 | Outpatient (CLI) | payer MEDICAID, SELFPAY ==
[2025-07-03 12:47] LABS: ESR 10 mm/hr (0-20)
[2025-07-03 12:48] LABS: Abs Immature Grans 0.06 10^3/uL (0.0-0.06); HCT 33.5 % (40.0-50.0); HGB 11.4 g/dL (13.5-17.5); Immature Grans % 0.4 %; MCH 27.4 pg (27.0-33.0); MCHC 34.0 % (32.0-36.0); MCV 81 fL (80-95); MPV 8.6 fL (8.0-11.0); Platelet Count 314 10^3/uL (130-400); RBC 4.16 10^6/uL (4.36-5.78); RDW 13.1 % (11.8-14.1); RDW-SD 38.2 fL; WBC 13.83 10^3/uL (4.4-10.8)
[2025-07-03 14:01] LABS: C-Reactive Protein 9.90 mg/dL (<or=0.5)
== END 2025-07-03 03:41 | disposition home or self-care (01) ==
PROVIDERS: Podiatrist; PCP Nurse Practitioner Family; Visit Provider Nurse Practitioner Psychiatric/Mental Health
DX: M86.9 Osteomyelitis, unspecified (principal); L97.522 Non-pressure chronic ulcer of other part of left foot with fat layer exposed; I73.9 Peripheral vascular disease, unspecified
CPT/HCPCS: 36415; 85652; 85025; 86140

== ENCOUNTER 2025-08-07 10:47 | Outpatient (CLI) | payer MEDICAID, SELFPAY ==
[2025-08-07 12:38] LABS: Abs Immature Grans 0.05 10^3/uL (0.0-0.06); HCT 38.3 % (40.0-50.0); HGB 12.9 g/dL (13.5-17.5); Immature Grans % 0.4 %; MCH 27.0 pg (27.0-33.0); MCHC 33.7 % (32.0-36.0); MCV 80 fL (80-95); MPV 9.0 fL (8.0-11.0); Platelet Count 314 10^3/uL (130-400); RBC 4.78 10^6/uL (4.36-5.78); RDW 13.8 % (11.8-14.1); RDW-SD 40.2 fL; WBC 11.67 10^3/uL (4.4-10.8)
== END 2025-08-07 10:48 | disposition home or self-care (01) ==
PROVIDERS: PCP Nurse Practitioner Family; Visit Provider Nurse Practitioner Psychiatric/Mental Health
DX: Z79.899 Other long term (current) drug therapy (principal)
CPT/HCPCS: 36415; 80159; 85025

== ENCOUNTER 2025-09-04 01:33 | Outpatient (CLI) | payer MEDICAID, SELFPAY ==
[2025-09-04 10:01] LABS: Abs Immature Grans 0.08 10^3/uL (0.0-0.06); HCT 40.6 % (40.0-50.0); HGB 14.0 g/dL (13.5-17.5); Immature Grans % 0.7 %; MCH 27.4 pg (27.0-33.0); MCHC 34.5 % (32.0-36.0); MCV 80 fL (80-95); MPV 8.4 fL (8.0-11.0); Platelet Count 304 10^3/uL (130-400); RBC 5.11 10^6/uL (4.36-5.78); RDW 13.6 % (11.8-14.1); RDW-SD 38.9 fL; WBC 11.74 10^3/uL (4.4-10.8)
== END 2025-09-04 01:34 | disposition home or self-care (01) ==
PROVIDERS: PCP Nurse Practitioner Family; Visit Provider Nurse Practitioner Psychiatric/Mental Health
DX: Z79.899 Other long term (current) drug therapy (principal)
CPT/HCPCS: 36415; 85025

== ENCOUNTER 2025-10-03 03:12 | Outpatient (CLI) | payer MEDICAID, SELFPAY ==
[2025-10-03 11:31] LABS: Abs Immature Grans 0.05 10^3/uL (0.0-0.06); HCT 43.8 % (40.0-50.0); HGB 14.7 g/dL (13.5-17.5); Immature Grans % 0.4 %; MCH 27.0 pg (27.0-33.0); MCHC 33.6 % (32.0-36.0); MCV 81 fL (80-95); MPV 9.4 fL (8.0-11.0); Platelet Count 339 10^3/uL (130-400); RBC 5.44 10^6/uL (4.36-5.78); RDW 13.5 % (11.8-14.1); RDW-SD 38.8 fL; WBC 11.74 10^3/uL (4.4-10.8)
== END 2025-10-03 03:13 | disposition home or self-care (01) ==
LOC: LBO 03:12
PROVIDERS: PCP Nurse Practitioner Family; Visit Provider Registered Nurse
DX: Z51.81 Encounter for therapeutic drug level monitoring (principal); Z79.899 Other long term (current) drug therapy
CPT/HCPCS: 36415; 85025

== ENCOUNTER 2025-11-01 01:45 | Outpatient (CLI) | payer MEDICAID, SELFPAY ==
[2025-11-01 11:20] LABS: Abs Immature Grans 0.07 10^3/uL (0.0-0.06); HCT 39.3 % (40.0-50.0); HGB 13.4 g/dL (13.5-17.5); Immature Grans % 0.6 %; MCH 27.1 pg (27.0-33.0); MCHC 34.1 % (32.0-36.0); MCV 79 fL (80-95); MPV 8.3 fL (8.0-11.0); Platelet Count 341 10^3/uL (130-400); RBC 4.95 10^6/uL (4.36-5.78); RDW 13.4 % (11.8-14.1); RDW-SD 38.0 fL; WBC 11.43 10^3/uL (4.4-10.8)
== END 2025-11-01 01:46 | disposition home or self-care (01) ==
LOC: LBO 01:46
PROVIDERS: PCP Nurse Practitioner Family; Visit Provider Registered Nurse
DX: Z79.899 Other long term (current) drug therapy (principal); F20.3 Undifferentiated schizophrenia; Z51.81 Encounter for therapeutic drug level monitoring
CPT/HCPCS: 36415; 80159; 85025

== ENCOUNTER 2025-11-28 16:05 | Outpatient (REF) | payer MEDICAID, SELFPAY ==
[2025-11-28 17:58] LABS: Abs Immature Grans 0.03 10^3/uL (0.0-0.06); HCT 43.3 % (40.0-50.0); HGB 14.9 g/dL (13.5-17.5); Immature Grans % 0.3 %; MCH 28.1 pg (27.0-33.0); MCHC 34.4 % (32.0-36.0); MCV 82 fL (80-95); MPV 9.2 fL (8.0-11.0); Platelet Count 342 10^3/uL (130-400); RBC 5.31 10^6/uL (4.36-5.78); RDW 13.5 % (11.8-14.1); RDW-SD 39.4 fL; WBC 9.61 10^3/uL (4.4-10.8)
== END 2025-11-28 16:06 | disposition home or self-care (01) ==
LOC: LBN 16:05
PROVIDERS: PCP Nurse Practitioner Family; Visit Provider Registered Nurse
DX: F20.3 Undifferentiated schizophrenia (principal); Z51.81 Encounter for therapeutic drug level monitoring
CPT/HCPCS: 85025